=== PATIENT | female | born 1960 | race Caucasian/White ===

== ENCOUNTER 2022-07-11 08:37 | Outpatient (CLI) | payer BC, SELFPAY ==
--- OUTSIDE RECORDS SUMMARY | 2022-07-11 08:44 | XMS_ITS ---
:1960 Author Allergies Code Code System Name Reaction Severity Status Onset NKDA ? Medications Name Status Start Date Stop Date ? ? amoxicillin 500 mg capsule Completed ? 04/13 amoxicillin 875 mg-potassium clavulanate 125 mg tablet Active ? Not available TK 1 T PO Q 12 H WC FOR 10 DAYS azithromycin 250 mg tablet Completed ? 04/13 biotin Active ? Not available Co Q-10 Active ? Not available escitalopram 5 mg tablet Active ? Not reese ilable TK 1 T PO QD fluticasone propionate 50 mcg/actuation nasal spray,suspension A ctive ? Not available SHAKE LQ AND U 1 SPR IEN QD hydrocodone 5 mg-acetaminophen 325 mg tablet Active ? Not available TK 1 T PO QID IF NEEDED FOR PAIN IBU 800 mg tablet Active ? Not available TK 1 T PO Q 6 TO 8 HOURS PRF PAIN Low Dose Aspirin 81 mg tablet,delayed release Active ? Not available Take 1 tablet every day by oral route. pravastatin Active ? Not available prednisone 10 mg tablet Completed ? 06/05/20 18 TK 1 T PO QD FOR 5 DAYS Stool Softener Active ? Not available turmeric Active ? Not available Problems Name Status Onset Date Source ? Cerebrovascular Accident Active 06/05/2018 ? Procedures Date Name Performed by ? ? Hysterectomy Information not avai lable ? Tonsillectomy/Adenoidectomy Information not available Results Lab Results Date Name Specimen Result Interpretation Description Value Range Status Address ? ? Rapid Strep Group a, ? Strep negative ? ? In-House Results: For Throat Internal U se Only, Do Not Delete/rukhsana ge Past Encounters None recorded. Social History Tobacco Smoking Status Never Smoker Vaccine List None recorded. Plan of Care Reminders Provider Appointments None recorded. ? ? Lab None recorded. ? ? Referral None recorded. ? ? Procedures None recorded. ? ? Surgeries None recorded. ? ? Imaging None recorded. ? ? Vitals 04/13/2019 10:45AM URGENT CARE VISIT Height Weight BMI Blood Pressure 161.29 cm 79.11 kg 30.4 kg/m2 138/85 mm[Hg] 01/27/2019 09:15AM URGENT CARE VISIT Height Weight BMI Blood Pressure 161.29 cm 78.24 kg 30.1 kg/m2 129/81 mm[Hg] 06/05/2018 10:15AM URGENT CARE VISIT Weight Blood Pressure 77.11 kg (1) 147/92 mm[Hg] (2) 144/91 mm[Hg]
--- OUTSIDE RECORDS SUMMARY | 2022-07-11 08:45 | XMS_ITS ---
:1960 Author Care Team Providers Name Role Phone Dunia Huntley Primary Care Provider Unavailable Allergies Code Code System Name Reaction Severity Status Onset NKDA ? Medications Name Status Start Date Stop Date ? ? Accu-Chek Fastclix Lancet Drum Active ? N ot available USE TO TEST BLOOD SUGAR ONCE D Accu-Chek Guide Glucose Meter Active ? No t available USE TO TEST BLOOD SUGAR ONCE D Accu-Chek Guide test strips Active ? Not available TEST BLOOD SUGARS ONCE D albuterol sulfate HFA 90 mcg/actuation aerosol inhaler Active ? Not available INHALE 1 TO 2 PUFFS BY MOUTH EVERY 4 TO 6 HOURS NEEDED gabapentin 100 mg capsule Active ? Not av ailable TK 1 C PO QID metformin ER 500 mg tablet,extended release 24 hr Active ? Not available TK 1 T PO QD montelukast Active ? Not available montelukast 10 mg tablet Active ? Not reese ilable TK 1 T PO QD polymyxin B sulfate 10,000 unit-trimethoprim 1 mg/mL eye Active ? Not available drops pravastatin Active ? Not available Problems Name Status Onset Date Source ? Diabetes Mellitus Active 07/14/2020 ? Asthma Active ? ? Procedures None recorded. Results Lab Results Date Name Specimen Result Interpretation Description Value Range Status Address ? 10/16/2021 Sars Antigen NASAL ? Sars negative negative [facility] [place] [facility] Antigen [facility] (Lab): [address], [place] ? ? NASAL ? Lot Number [id number] ? Final [facility] (Lab): [address], [place] ? ? NASAL ? Expiration [id number] ? Final [place] [facility] (Lab): [address], [place] ? ? NASAL ? Intcon valid valid Final [facility] (Lab): [address], [place] ? ? NASAL ? First Covid no ? Final [facility] ([facility]): [address], [place] ? ? NASAL ? Healthcare no ? Final [facility] (Lab): [address], [place] ? ? NASAL ? Cvdsymp no ? Final [facility] (Lab): [address], [place] ? ? NASAL ? Cvdhosp no ? Final [facility] (Lab): [address], [place] ? ? NASAL ? ICU St Time no ? Final [facility] (Lab): [address], [place] ? ? NASAL ? Resident in no ? Final [facility] (Lab): [address], [place] ? ? NASAL ? ? not ? Final [facility] ([facility]): [address] [facility] [place] 10/16/2021 SARS CoV 2 ? No ? ? ? [place] RNA observation Medic al (COVID-19), recorded. 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 No ? ? ? [place] Study observation Medic al recorded. Center (Pathology ): [address] [facility] Past Encounters 10/16/2021 Viral Screening Dunia Huntley [facility]: [address] [place] [address], Ph. [phone] 08/09/2021 Type 2 Diabetes Mellitus without Complic ation Dunia Huntley [facility]: [address] [place] [address], Ph. [phone] Social History Tobacco Smoking Status Never Smoker Vaccine List None recorded. Plan of Care Reminders Provider Appointments None recorded. ? ? Lab None recorded. ? ? Referral None recorded. ? ? Procedures None recorded. ? ? Surgeries None recorded. ? ? Imaging None recorded. ? ? Vitals 10/16/2021 11:52AM WALK-IN Height Weight BMI Blood Pressure 160.02 cm 78.07 kg 30.5 kg/m2 132/83 mm[Hg] 08/09/2021 08:06AM WALK-IN Height Weight BMI Blood Pressure 160.02 cm 77.11 kg 30.1 kg/m2 120/70 mm[Hg] 08/17/2020 03:00PM *Follow-up 15 Height Weight BMI Blood Pressure 160.02 cm 76.2 kg 29.8 kg/m2 113/78 mm[Hg] 08/04/2020 03:00PM Procedure/test in clinic Height Weight BMI Blood Pressure 160.02 cm 77.56 kg 30.3 kg/m2 128/89 mm[Hg] 07/29/2020 03:30PM *New Patient 30 Height Weight BMI Blood Pressure 160.02 cm 77.11 kg 30.1 kg/m2 110/72 mm[Hg] 07/14/2020 10:45AM WALK-IN Height Weight BMI Blood Pressure 160.02 cm 75.75 kg 29.6 kg/m2 135/89 mm[Hg]
--- OUTSIDE RECORDS SUMMARY | 2022-07-11 08:45 | XMS_ITS ---
:1960 Author Care Team Providers Name Role Phone ELIJAH PORTER MANAGER [employer] Primary Care Provider [phone] REBECCA ROLDAN RD CDE Business Process Associate/Slab Installer [phone] Allergies Code Code System Name Reaction Severity Status Onset [id number] RxNorm Mold Other Mild to Moderate Active 06/2016 Medications Name Status Start Date Stop Date ? ? Accu-Chek Guide test strips Active ? Not available TEST BLOOD SUGARS ONCE DAILY albuterol sulfate HFA 90 mcg/actuation aerosol inhaler Active ? Not available Inhale 2 puffs every 4-6 hours by inhalation route as needed. amoxicillin 875 mg-potassium clavulanate 125 mg tablet Completed ? 02/08/2021 TAKE 1 TABLET BY MOUTH TWICE DAILY aspirin 81 mg tablet,delayed release Active 07/27/2016 Not available Take 1 tablet every day by oral route. azithromycin 250 mg tablet Completed ? 01/03 TAKE 2 TABLETS BY MOUTH FOR 1 DAY THEN TAKE 1 TABLET BY MOUTH DAILY FOR 4 DAYS benzonatate 100 mg capsule Completed ? 01/03 TAKE 1 CAPSULE BY MOUTH THREE TIMES DAILY NEEDED biotin Completed ? 01/06/2019 1000 mgonce daily biotin 1 mg tablet Active ? Not available Take 1 tablet every day by oral route. cephalexin 500 mg capsule Completed ? 2020 TAKE 1 CAPSULE BY MOUTH FOUR TIMES DAILY FOR 7 DAYS ciclopirox 8 % topical solution Active ? Not available APPLY TO THE RIGHT SECOND TOENAIL EVERY DAY AT BEDTIME CLEAN NAIL WITH ALCOHOL EVERY 7 DAYS Co Q-10 Completed ? 04/01/2017 CoQ-10 100 mg capsule Active ? Not availa ble Take 1 capsule every day by oral route. Cosamin DS 500 mg-400 mg tablet Completed 09/05/2015 02/17/2017 Take as needed for joint pain Detrol LA 4 mg capsule,extended release Completed 11/23/19 16 12/11/2017 Take 1 capsule every day by oral route. Differin 0.1 % topical cream Active 10/28/2015 Not available Apply to the affected areas once daily at bedtime. docusate sodium 100 mg capsule Active ? N ot available Take 1 capsule every day by oral route. doxycycline monohydrate 100 mg capsule Completed ? 02/08/2021 TK 1 C PO BID FOR 7 DAYS escitalopram 5 mg tablet Active ? Not reese ilable Take 1 tablet every day by oral route. estradiol 0.01% (0.1 mg/gram) vaginal cream Active ? Not available Insert 1 g twice a week by vaginal route. fluticasone propionate 50 mcg/actuation nasal spray,suspension A ctive ? Not available SHAKE LIQUID AND USE 2 SPRAYS IN EACH NOSTRIL EVERY DAY NEED ED gabapentin 100 mg capsule Active ? Not av ailable Take 1 capsule twice a day by oral route as needed. gabapentin 300 mg capsule Completed 10/28/20152016 Take one (1) by mouth at hour of sleep as needed. glucosamine-chondroitin 750 mg-600 mg tablet Completed 02/17/2017 Take one (1) by mouth daily. ID NOW COVID-19 Test Kit Completed ? 022 TEST DIRECTED TODAY ketoconazole 2 % topical cream Completed 10/16/2016 0 12/11/2017 Apply to affected toenails qd. melatonin Completed ? 01/06/2019 5 mg once daily melatonin 5 mg tablet Active ? Not availa ble Take 1 tablet as needed by oral route at bedtime. metformin ER 500 mg tablet,extended release 24 hr Active ? Not available Take 1 tablet every day by oral route. montelukast Completed ? 01/12/2020 10mg once daily montelukast 10 mg tablet Active ? Not reese ilable Take 1 tablet every day by oral route in the evening. Multivitamin 50 Plus Completed ? 12/11/2017 Take 1 tab daily naproxen 500 mg tablet Completed ? 1 TK 1 T PO BID FOR 5 DAYS. TAKE WITH FOOD naratriptan 2.5 mg tablet Active ? Not av ailable Take 1 tablet by mouth at the onset of migraine. May repeat dose in 2 hours if symptoms still present. No more than 2 tablets in 24 hours. nitrofurantoin monohydrate/macrocrystals 100 mg capsule Complete d ? 01/03/2022 TAKE 1 CAPSULE BY MOUTH TWICE DAILY ofloxacin 0.3 % eye drops Active ? Not av ailable polymyxin B sulfate 10,000 unit-trimethoprim 1 mg/mL eye drops C ompleted ? 01/28/2020 INSTILL 1 DROP INTO AFFECTED EYE(S) BY OPHTHALMIC ROUTE EVERY 6 HOURS pravastatin 20 mg tablet Active ? Not reese ilable Take 1 tablet every day by oral route at bedtime. prednisolone acetate 1 % eye drops,suspension Active ? Not available prednisone 10 mg tablet Completed ? 01/07/20 Take 1 tablet every day by oral route for 5 days. Probiotic 3 billion cell capsule Completed 09/07/2014 12/11/2017 Take by oral route. Prolensa 0.07 % eye drops Active ? Not av ailable valacyclovir 1 gram tablet Active ? Not a vailable TAKE 2 TABLETS BY MOUTH EVERY 12 HOURS FOR 1 DAY NEEDED Problems Name Status Onset Date Source ? Hyperlipidemia Active 02/13/2017 ? Gastroesophageal Reflux Disease Active 02/13/2017 ? Osteoarthritis Active 02/13/2017 ? Sleep Disorder Active 02/13/2017 ? Impaired Fasting Glycemia Unknown 02/13/2017 ? Migraine Active 12/11/2017 ? Menopausal Flushing Active 12/11/2017 ? Atrophic Vaginitis Active 12/11/2017 ? Adult Health Examination Unknown 12/11/2017 ? Diabetes Mellitus Active 01/12/2020 ? Allergic Rhinitis Active 01/12/2020 ? Melanocytic Nevus of Trunk Active 05/03/2020 ? Hemangioma of Skin Active 05/03/2020 ? Skin Changes Due to Chronic Exposure to Non-ionizing Active 05/03/2020 ? Radiation Senile Hyperkeratosis Active 05/03/2020 ? Inflamed Seborrheic Keratosis Active 05/03/2020 ? Digital Mucous Cyst of Left Hand Active 05/03/2020 ? Procedures Date Name Performed by ? 01/13/2019 Cologuard Information not avai lable 08/26/1990 Hysterectomy Information not avai lable 06/10/2015 Mammogram, Screening Information not reese ilable 06/25/2014 Mammogram, Screening Information not reese ilable 06/12/2016 Mammogram, Screening Information not reese ilable 02/08/2021 XR, Hip, Unilateral, 2 or 3 View [facility] Radiology Uls Ekg Holter [address] [place] [address] (Work Place) 01/03/2022 CT, Coronary Calcium Score [facility] Diagnostic Cardiology Ekg Holter Stress Ahs [address] [place] [address] (Work Place) 04/02/2022 XR, Lumbar Spine [facility] Radiology Uls Ekg Holter Amg [address] [place], [place] [id number] (Work Place) Notes: Right finger cyst removal, left middle finger cyst removal Left breast biopsy; benign Hysterectomy due to irregular periods an d dysmenorrhea; ovaries remain intact Tonsillectomy EGD on 11/17/2012 Colonoscopy on 01/13/2007 Results Lab Results Date Name Specimen Result Interpretation Description Value Range Status Address ? 12/29/2021 HbA1C High glycohgb-A1C 6.2 % <=5.6 % [facility] (Hemoglobin Hospi magui Lab a1C), Blood Ahs: [address] [facility] ? ? ? [address] ? Final [facility] Lab Ahs: [address] [facility] 12/29/2021 Microalbumin/cr ? microalb-mg/dL < 0.5 ? Final [facility] [place] mg/dL Ho spital Lab Ratio, Urine Ahs: [address] [facility] ? ? ? Microalb/crea not 0-29 [facility] done ug/mg Hospital L ab ug/mg Ahs: [address] [facility] ? ? ? Ur Creat 105 ? Final [facility] Random mg/dL Hospital L ab Ahs: [address] [facility] 12/29/2021 CMP, Serum or Normal Sodium 138 136-145 Allyn l [facility] Plasma mmol/L mmol/L Hospital L ab Ahs: [address] [facility] ? ? Normal Potassium 4.2 3.5-5.[address] [facility] mmol/L mmol/L Hospital L ab Ahs: [address] [facility] ? ? Normal Chloride 104 98-107 [facility] mmol/L mmol/L Hospital L ab Ahs: [address] [facility] ? ? Normal Tco2 26 23-[address] [facility] mmol/L mmol/L Hospital L ab Ahs: [address] [facility] ? ? Normal Anion Gap, 8.4 3-[address] [facility] Calc mmol/L mmol/L Hospital L ab Ahs: [address] [facility] ? ? High Glucose 129 70-99 Final [facility] mg/dL mg/dL Hospital L ab Ahs: [address] [facility] ? ? Normal Urea Nitrogen 16 7-26 Final [facility] mg/dL mg/dL Hospital L ab Ahs: [address] [facility] ? ? Normal Creatinine 1.07 0.57-1.1 Final [facility] mg/dL 1 mg/dL Hospital Lab Ahs: [address] [facility] ? ? Normal Calcium Total 9.5 8.4-10.5 Final [facility] mg/dL mg/dL Hospital L ab Ahs: [address] [facility] ? ? Low GFR Calculated 52 >60 Final [facility] mL/min mL/min Hospital L ab Ahs: [address] [facility] ? ? Normal Bilirubin 0.5 0.2-1.[address] [facility] Total mg/dL mg/dL Hospital L ab Ahs: [address] [facility] ? ? Normal Alkphos 77 U/L 40-150 Final [facility] U/L Hospital L ab Ahs: [address] [facility] ? ? High Got(ast) 36 U/L 5-34 U/L Final [facility] L ab Ahs: [address] [facility] ? ? Normal Gpt(alt) 51 U/L 0-55 U/L Final [facility] L ab Ahs: [address] [facility] ? ? Normal Protein Total 7.5 6.2-8.0 Final [facility] g/dL g/dL Hospital L ab Ahs: [address] [facility] ? ? Normal Albumin 4.2 3.5-5.2 Final [facility] g[facility]dL Hospital L ab Ahs: [address] [facility] 12/29/2021 Lipid Panel, High cholesterol-T 201 < 200 Final [facility] Serum mg/dL mg/dL Hospital L ab Ahs: [address] [facility] ? ? High Triglyceride 203 50-150 Final [facility] mg/dL mg/dL Hospital L ab Ahs: [address] [facility] ? ? ? HDL [address] [facility] Cholesterol mg/dL mg/dL Hospi magui Lab Ahs: [address] [facility] ? ? High Non-hdlc Calc 157 <130 Final [facility] mg/dL mg/dL Hospital L ab Ahs: [address] [facility] ? ? High LDL Chol Calc 116 <100 Final [facility] mg/dL mg/dL Hospital L ab Ahs: [address] [facility] 01/05/2021 HbA1C High glycohgb-A1C 6.1 % <=5.6 % Final [facility] (Hemoglobin Hospi magui Lab a1C), Blood Ahs: [address] [facility] ? ? ? [address] ? Final [facility] Lab Ahs: [address] [facility] 01/05/2021 Microalbumin/cr ? microalb-mg/dL < 0.5 ? Final [facility] [place] mg/dL Ho spital Lab Ratio, Urine Ahs: [address] [facility] ? ? ? Microalb/crea not 0-29 Final [facility] done ug/mg Hospital L ab ug/mg Ahs: [address] [facility] ? ? ? Ur Creat 82 ? Final [facility] Random mg/dL Hospital L ab Ahs: [address] [facility] 01/05/2021 CMP, Serum or Normal Sodium 141 136-145 Allyn l [facility] Plasma mmol/L mmol/L Hospital L ab Ahs: [address] [facility] ? ? Normal Potassium 4.5 3.5-5.[address] [facility] mmol/L mmol/L Hospital L ab Ahs: [address] [facility] ? ? High Chloride 108 98-[address] [facility] mmol/L mmol/L Hospital L ab Ahs: [address] [facility] ? ? Normal Tco2 26 23-[address] [facility] mmol/L mmol/L Hospital L ab Ahs: [address] [facility] ? ? Normal Anion Gap, 7.1 3-[address] [facility] Calc mmol/L mmol/L Hospital L ab Ahs: [address] [facility] ? ? High Glucose 117 70-99 Final [facility] mg/dL mg/dL Hospital L ab Ahs: [address] [facility] ? ? Normal Urea Nitrogen 24 7-26 Final [facility] mg/dL mg/dL Hospital L ab Ahs: [address] [facility] ? ? Normal Creatinine 1.07 0.57-1.1 Final [facility] mg/dL 1 mg/dL Hospital Lab Ahs: [address] [facility] ? ? Normal Calcium Total 9.8 8.4-10.5 Final [facility] mg/dL mg/dL Hospital L ab Ahs: [address] [facility] ? ? Low GFR Calculated 52 >60 Final [facility] mL/min mL/min Hospital L ab Ahs: [address] [facility] ? ? Normal Bilirubin 0.5 0.2-1.[address] [facility] Total mg/dL mg/dL Hospital L ab Ahs: [address] [facility] ? ? Normal Alkphos 76 U/L 40-150 Final [facility] U/L Hospital L ab Ahs: [address] [facility] ? ? Normal Got(ast) 24 U/L 5-34 U/L Final [facility] L ab Ahs: [address] [facility] ? ? Normal Gpt(alt) 28 U/L 0-55 U/L Final [facility] L ab Ahs: [address] [facility] ? ? Normal Protein Total 7.2 6.2-8.0 [facility] ab Ahs: [address] [facility] ? ? Normal Albumin 4.1 3.5-5.[address] [facility] g/dL g/dL Hospital L ab Ahs: [address] [facility] 01/05/2021 Lipid Panel, ? cholesterol-T 180 < 200 Final [facility] Serum mg/dL mg/dL Hospital L ab Ahs: [address] [facility] ? ? High Triglyceride 152 50-150 Final [facility] mg/dL mg/dL Hospital L ab Ahs: [address] [facility] ? ? ? HDL [address] [facility] Cholesterol mg/dL mg/dL Hospi magui Lab Ahs: [address] [facility] ? ? High Non-hdlc Calc 134 <130 Final [facility] mg/dL mg/dL Hospital L ab Ahs: [address] [facility] ? ? High LDL Chol Calc 104 <100 Final [facility] mg/dL mg/dL Hospital L ab Ahs: [address] [facility] 01/05/2021 TSH, Serum or Normal Tsh 2.67 0.34-4.9 [facility] Plasma uIU/mL 4 uIU/mL Hospital Lab Ahs: [address] [facility] 07/14/2020 CMP, Serum or ? No observation ? ? ? [place] Plasma recorded. Medical Center (Medical Records): [address] [facility] 04/15/2020 HbA1C High glycohgb-A1C 6.3 % <=5.6 % Final [facility] (Hemoglobin Hospi magui Lab a1C), Blood Ahs: [address] [facility] ? ? ? [address] ? Final [facility] Glucose Hospital Lab Ahs: [address] [facility] 04/15/2020 Glucose, Serum High Glucose 141 70-99 Fin al [facility] or Plasma mg/dL mg/dL Hospita l Lab Ahs: [address] [facility] 03/14/2020 CBC W/ Auto Normal Wbc 6.7 3.9-11.0 Final [place] Main Diff x1000 x1000 [facility] Lab Am [address] [facility], [place] ? ? Normal Rbc 4.50 3.79-5.2 Final [place] M ain millio 3 Clinic n million Lab Am Main , [place] ? ? Normal Hgb 15.0 11.7-15. Final Félix Conrad ain g/dL 7 g/dL Clinic Lab Am 01 [facility] ? ? Normal Hct 43.9 % 34.9-46. Final Félix Conrad ain 9 % Clinic Lab Am 01 [facility] ? ? Normal Mcv 97.7 80-100 Final Félix Adami n fL fL Clinic Lab Am 01 [facility] ? ? Normal Mch 33.4 26.6-33. Final Félix Conrad ain pg 8 pg Clinic Lab Am 01 [facility] ? ? Normal Mchc 34.1 32-36 Final Félix Nolasco n g/dL g/dL Clinic Lab Am 01 [facility] ? ? Low Rdw 10.9 % 11.5-14. Final Félix Conrad ain 5 % Clinic Lab Am 01 [facility] ? ? Normal Plt 286 160-475 Final Félix Adam in x1000 x1000 Clinic Lab Am 01 [facility] ? ? Low Mpv 6.9 fL 7.4-10.4 Final Félix Conrad ain fL Clinic Lab Am 01 [facility] ? ? Normal % Neutrophil 51.8 % 50.0-80. Final Lisa carter Main 0 % Clinic Lab Am 01 [facility] ? ? Normal % Lymph 33.6 % 25.0-45. Final [place] Main 0 % Clinic Lab Am 01 [facility] ? ? Normal % Trimble 8.5 % 2.0-13.0 Final [place] Main % Clinic Lab Am 01 [facility] ? ? High % Eosin 5.3 % 1.0-5.0 Final [place] Main % Clinic Lab Am 01 [facility] ? ? Normal % Basophil 0.8 % 0-1.0 % Final [facility] Clinic Lab Am 01 [facility] ? ? Normal Abs Neut CT 3.5 1.8-7.7 Final [facility] Main x1000 x1000 Clinic Lab Am 01 [facility] ? ? Normal Abs Lymph CT 2.3 1.0-4.[address] [facility] x1000 x1000 Clinic Lab Am 01 [facility] ? ? Normal Abs Trim[address] CT 0.6 0-0.[address] [facility] x1000 x1000 Clinic Lab Am 01 [facility] ? ? Normal Abs Eosin CT 0.4 0-0.[address] [facility] x1000 x1000 Clinic Lab Am 01 [facility] ? ? Normal Abs Baso CT 0.1 0-0.[address] [facility] x1000 x1000 Clinic Lab Am [facility] ? ? ? Smear Review smear ? Final Kyler perez Main review [facility] ed Lab Am 01 [facility] 03/14/2020 Uric Acid, High Uric Acid 6.2 2.6-6.0 Allyn l [facility] Serum or Plasma mg/dL mg/dL H ospital Lab Ahs: [address] [facility] 03/14/2020 Rheumatoid ? Rheum Fact,qnt < 15 0-29 Final [facility] Factor-qnt IU/mL IU/mL Heal System: [address] [facility] on ? ? ? RA Factor negati negative Final [facility] [address] [facility] on 03/14/2020 DAVID Normal DAVID EIA Scn negati negative Final [facility] (Antinuclear ve Hosp ital Lab Antibodies) Ahs: [address] Screen, Serum One stuart [facility] 01/28/2020 SARS CoV 2 RNA Normal Sars-cov-2 PCR negati neg ative Final [facility] (COVID-19), QL, ve H ealth die assembler-PCR, System: [address] Res[address] S Mad vivek [facility], Appl eton 01/05/2020 CMP, Serum or Normal Sodium 141 136-145 Allyn l [facility] Plasma mmol/L mmol/L [facility] ? ? Normal Potassium 4.5 3.5-5.[address] [facility] mmol/L mmol/L Hospital L ab Ahs: [address] [facility] ? ? Normal Chloride 105 98-107 Final [facility] mmol/L mmol/L Hospital L ab Ahs: [address] [facility] ? ? High Tco2 31 22-[address] [facility] mmol/L mmol/L Hospital L ab Ahs: [address] [facility] ? ? Normal Anion Gap, 4.8 3-[address] [facility] Calc mmol/L mmol/L Hospital L ab Ahs: [address] [facility] ? ? High Glucose 139 70-99 Final [facility] mg/dL mg/dL Hospital L ab Ahs: [address] [facility] ? ? Normal Urea Nitrogen 13 7-26 Final [facility] mg/dL mg/dL Hospital L ab Ahs: [address] [facility] ? ? Normal Creatinine 1.08 0.57-1.1 Final [facility] mg/dL 1 mg/dL Hospital Lab Ahs: [address] [facility] ? ? Normal Calcium Total 10.3 8.4-10.5 Final [facility] mg/dL mg/dL Hospital L ab Ahs: [address] [facility] ? ? Low GFR Calculated 52 >60 Final [facility] mL/min mL/min Hospital L ab Ahs: [address] [facility] ? ? Normal Bilirubin 0.5 0.2-1.[address] [facility] Total mg/dL mg/dL Hospital L ab Ahs: [address] [facility] ? ? Normal Alkphos 74 U/L 40-150 Final [facility] U/L Hospital L ab Ahs: [address] [facility] ? ? High Got(ast) 46 U/L 5-34 U/L Final [facility] L ab Ahs: [address] [facility] ? ? High Gpt(alt) 62 U/L 0-55 U/L Final [facility] L ab Ahs: [address] [facility] ? ? Normal Protein Total 7.2 6.2-8.0 Final [facility] g/dL g/dL Hospital L ab Ahs: [address] [facility] ? ? Normal Albumin 4.3 3.5-5.2 Final [facility] g/dL Hospital L ab Ahs: [address] [facility] 01/05/2020 Lipid Panel, ? cholesterol-T 193 < 200 Final [facility] Serum mg/dL mg/dL Hospital L ab Ahs: [address] [facility] ? ? High Triglyceride 180 50-150 Final [facility] mg/dL mg/dL Hospital L ab Ahs: [address] [facility] ? ? ? HDL [address] [facility] Cholesterol mg/dL mg/dL Hospi magui Lab Ahs: [address] [facility] ? ? High Non-hdlc Calc 148 <130 Final [facility] mg/dL mg/dL Hospital L ab Ahs: [address] [facility] ? ? High LDL Chol Calc 112 <100 Final [facility] mg/dL mg/dL Hospital L ab Ahs: [address] [facility] 01/05/2020 HbA1C High glycohgb-A1C 7.0 % <=5.6 % Final [facility] (Hemoglobin Hospi magui Lab a1C), Blood Ahs: [address] [facility] ? ? ? [address] ? Final [facility] Hospital Lab Ahs: [address] [facility] 01/13/2019 Colon Cancer Stoo ? Cologuard negati not Fin al Exact Screening, l Result ve applicab Scie nces Stool le Laboratori es (Cologuard Orders Only): [address], [place] 01/06/2019 Measles IgG Ab, ABNORMA Rubeola Immune non i mmune Final [facility] Qual, Serum L immune Hospi magui Lab Ahs: [address] [facility] 12/31/2018 CMP, Serum or Normal Sodium 140 136-145 Allyn l [facility] Plasma mmol/L mmol/L Hospital L ab Ahs: [address] [facility] ? ? Normal Potassium 4.4 3.5-5.[address] [facility] mmol/L mmol/L Hospital L ab Ahs: [address] [facility] ? ? Normal Chloride 106 98-107 Final [facility] mmol/L mmol/L Hospital L ab Ahs: [address] [facility] ? ? Normal Tco2 27 22-[address] [facility] mmol/L mmol/L Hospital L ab Ahs: [address] [facility] ? ? Normal Anion Gap, 6.9 3-[address] [facility] Calc mmol/L mmol/L Hospital L ab Ahs: [address] [facility] ? ? High Glucose 112 70-99 Final [facility] mg/dL mg/dL Hospital L ab Ahs: [address] [facility] ? ? Normal Urea Nitrogen 16 7-26 Final [facility] mg/dL mg/dL Hospital L ab Ahs: [address] [facility] ? ? Normal Creatinine 1.10 0.57-1.1 Final [facility] mg/dL 1 mg/dL Hospital Lab Ahs: [address] [facility] ? ? Normal Calcium Total 9.8 8.4-10.5 Final [facility] mg/dL mg/dL Hospital L ab Ahs: [address] [facility] ? ? Low GFR Calculated 51 >60 Final [facility] mL/min mL/min Hospital L ab Ahs: [address] [facility] ? ? Normal Bilirubin 0.9 0.2-1.[address] [facility] Total mg/dL mg/dL Hospital L ab Ahs: [address] [facility] ? ? Normal Alkphos 84 U/L 40-150 Final [facility] U/L Hospital L ab Ahs: [address] [facility] ? ? Normal Got(ast) 30 U/L 5-34 U/L Final [facility] L ab Ahs: [address] [facility] ? ? Normal Gpt(alt) 39 U/L 0-55 U/L Final [facility] L ab Ahs: [address] [facility] ? ? Normal Protein Total 7.4 6.2-8.0 Final [facility] g/dL g/dL Hospital L ab Ahs: [address] [facility] ? ? Normal Albumin 4.3 3.5-5.2 Final [facility] [facility] g/dL g/dL Hospital L ab Ahs: [address] [facility] 12/31/2018 Lipid Panel, ? cholesterol-T 187 < 200 Final [facility] Serum mg/dL mg/dL Hospital L ab Ahs: [address] [facility] ? ? High Triglyceride 180 50-150 Final [facility] mg/dL mg/dL Hospital L ab Ahs: [address] [facility] ? ? Low HDL [address] [facility] Cholesterol mg/dL mg/dL Hospi magui Lab Ahs: [address] [facility] ? ? High Non-hdlc Calc 150 <130 Final [facility] mg/dL mg/dL Hospital L ab Ahs: [address] [facility] ? ? High LDL Chol Calc 114 <100 Final [facility] mg/dL mg/dL Hospital L ab Ahs: [address] [facility] 12/31/2018 HbA1C High glycohgb-A1C 6.3 % <=5.6 % Final [facility] (Hemoglobin Hospi magui Lab a1C), Blood Ahs: [address] [facility] ? ? ? [address] ? Final [facility] Lab Ahs: [address] [facility] 12/31/2018 TSH, Serum or Normal Tsh 1.72 0.34-4.9 Allyn l [facility] Plasma uIU/mL 4 uIU/mL Hospital Lab Ahs: [address] [facility] 12/11/2017 CMP, Serum or Normal Sodium 138 134-143 Allyn l [facility] Plasma mmol/L mmol/L Hospital L ab Ahs: [address] [facility] ? ? Normal Potassium 4.1 3.6-5.[address] [facility] mmol/L mmol/L Hospital L ab Ahs: [address] [facility] ? ? Normal Chloride 103 98-108 Final [facility] mmol/L mmol/L Hospital L ab Ahs: [address] [facility] ? ? Normal Tco2 27 22-[address] [facility] mmol/L mmol/L Hospital L ab Ahs: [address] [facility] ? ? Normal Anion Gap, 8.1 3-[address] [facility] Calc mmol/L mmol/L Hospital L ab Ahs: [address] [facility] ? ? High Glucose 113 60-99 Final [facility] mg/dL mg/dL Hospital L ab Ahs: [address] [facility] ? ? Normal Urea Nitrogen 15 8-26 Final [facility] mg/dL mg/dL Hospital L ab Ahs: [address] [facility] ? ? Normal Creatinine 0.88 0.44-1.0 Final [facility] mg/dL 0 mg/dL Hospital Lab Ahs: [address] [facility] ? ? Normal Calcium Total 9.3 8.5-10.1 Final [facility] mg/dL mg/dL Hospital L ab Ahs: [address] [facility] ? ? Normal GFR Calculated > 60 >60 Final [facility] mL/min mL/min Hospital L ab Ahs: [address] [facility] ? ? Normal Bilirubin 0.6 0.3-1.[address] [facility] Total mg/dL mg/dL Hospital L ab Ahs: [address] [facility] ? ? Normal Alkphos 81 U/L 32-99 Final [facility] U/L Hospital L ab Ahs: [address] [facility] ? ? Normal Got(ast) 34 15-41 Final [facility] IU/L IU/L Hospital L ab Ahs: [address] [facility] ? ? Normal Gpt(alt) 41 14-54 [facility] IU[facility]L Hospital L ab Ahs: [address] [facility] ? ? Normal Protein Total 7.5 6.0-8.0 [facility] Ahs: [address] [facility] ? ? Normal Albumin 4.2 3.5-5.0 Final [facility] g/dL g/dL Hospital L ab Ahs: [address] [facility] 12/11/2017 Lipid Panel, ? cholesterol-T 193 < 200 Final [facility] Serum mg/dL mg/dL Hospital L ab Ahs: [address] [facility] ? ? High Triglyceride 178 50-150 Final [facility] mg/dL mg/dL Hospital L ab Ahs: [address] [facility] ? ? ? HDL [address] [facility] Cholesterol mg/dL mg/dL Hospi magui Lab Ahs: [address] [facility] ? ? High Non-hdlc Calc 151 <130 Final [facility] mg/dL mg/dL Hospital L ab Ahs: [address] [facility] ? ? High LDL Chol Calc 115 <100 Final [facility] mg/dL mg/dL Hospital L ab Ahs: [address] [facility] 12/11/2017 HbA1C High glycohgb-A1C 6.2 % 4.0-6.0 Final [facility] (Hemoglobin % Hospi magui Lab a1C), Blood Ahs: [address] [facility] ? ? ? [address] ? Final [facility] Lab Ahs: [address] [facility] 02/17/2017 Urinalysis, Normal Color orange ? Final [facility] Complete Clinic L ab Am N [facility], [place] ? ? Normal Clarity clear clear Final [facility] Clinic Lab Am N [facility], [place] ? ? Normal Spec [place] see 1.001-1. Final [facility] Lab t Am N [facility], [place] ? ? Normal Ph see 5.0-8.0 Final [facility] Lab t Am N [facility], [place] ? ? Normal Protein see neg-trac Final [facility] e mg/dL Clinic La b t Am N mg/dL [facility], [place] ? ? Normal Glucose see neg Final [facility] mg[facility]dL Clinic Lab t Am N mg/dL [facility], [place] ? ? Normal Ketones see neg Final [facility] mg/dL Clinic Lab t Am N mg/dL [facility], [place] ? ? Normal Ur Bilirubin see neg Final [facility] commen Clinic Lab t Am N [facility], [place] ? ? Normal Blood see neg Final [facility] Lab t Am N [facility], [place] ? ? Normal Urobilinogen see 0.2-1.0 Final [facility] eu/dL Clinic Lab t Am N eu/dL [facility], [place] ? ? Normal Nitrite see neg Final [facility] Lab t Am N [facility], [place] ? ? Normal Leuk Screen see neg [facility], [place] ? ? Normal Urine Casts 0 /lpf 0 /lpf Final [facility] Lab Am N [facility], [place] ? ? ABNORMA Urine WBC 5-10 0 /hpf Final [facility] L /hpf Clinic Lab Am N [facility], [place] ? ? ABNORMA Urine RBC 3-5 0-2 /hpf Final [facility] L /hpf Clinic Lab Am N [facility], [place] ? ? ABNORMA Urine Bacteria 3+ 0 /hpf Final [facility] L /hpf Clinic Lab Am N [facility], [place] ? ? Normal Urine Mucus 0 0 Final [facility] Lab Am N [facility], [place] ? ? Normal Urine Crystals 0 /hpf 0 /hpf Final [facility] Lab Am N [facility], [place] ? ? Normal Amorphous 0 /hpf 0 /hpf Final [facility] Urate Clinic Lab Am N [facility], [place] ? ? Normal Amorphous Phos 0 0 Final [facility] Lab Am N [facility], [place] ? ? Normal Urine Yeast 0 /hpf 0 /hpf Final [facility] Lab Am N [facility], [place] ? ? Normal Squam Epith cL 3-5 ? Final [facility] /hpf Clinic Lab Am N [facility], [place] ? ? Normal Ur Renal Ep 0 /hpf ? Final [facility] Lab Am N [place] ? ? Normal Ur Oval Fat 0 /hpf 0 /hpf Final Alex gamino [facility] Lab Am N [place] ? ? Normal Urine Comment * ? Final Marylin munguia [facility] Lab Am N [place] 12/13/2016 Historical ? Results ? ? Final [facility] Pathology Wi- Lab Report Backfill (32486): [place] 11/20/2016 Lipid Panel ? Cholesterol-to 198 < 200 Final [facility] magui mg/dL mg/dL Wi- Lab Backfill (58689): [place] ? ? ? Triglycerides 141 50-150 Final [facility] mg/dL mg/dL Wi- Lab Backfill (92352): [place] ? ? ? HDL 50 >40 Final [facility] Cholesterol mg/dL mg/dL Wi- L ab Backfill (14000): [place] ? ? ABNORMA non-HDL 148 <130 Final [facility] Cholesterol,nesha mg/dL mg/dL W i- Lab c Backfill (36245): [place] ? ? ABNORMA LDL 120 <100 Final [facility] L Cholesterol, mg/dL mg/dL Wi- Lab Calc Backfill (93300): [place] 11/20/2016 CMP, Serum or ? Sodium 139 134-143 Allyn l [facility] Plasma mmol/L mmol/L Wi- Lab Backfill (79372): [place] ? ? ? Potassium 4.1 3.6-5.1 Final [facility] [place] mmol/L mmol/L Wi- Lab Backfill (96876): [place] ? ? ? Chloride 105 98-108 Final [facility] mmol/L mmol/L Wi- Lab Backfill (46269): [place] ? ? ? CO2 Content 28 22-32 Final Asce nsion mmol/L mmol/L Wi- Lab Backfill (41574): [place] ? ? ABNORMA Glucose 114 60-99 Final [facility] L mg/dL mg/dL Wi- Lab Backfill (69931): [place] ? ? ? Urea 13 8-26 Final [facility] Nitrogen/blood mg/dL mg/dL Wi - Lab Backfill (27142): [place] ? ? ? Creatinine / 0.96 0.44-1.0 Final [facility] Use Cre mg/dL 0 mg/dL Wi- La b Instead Backfill (46367): [place] ? ? ? Calcium Total 9.6 8.5-10.1 Final [facility] mg/dL mg/dL Wi- Lab Backfill (85241): [place] ? ? ? GFR Calculated 60 > 60 Final [facility] sc[facility] mL/min mL/min Wi- Lab Backfill (90761): [place] ? ? ? Bilirubin 0.3 0.3-1.4 Final [facility] [place] Total mg/dL mg/dL Wi- Lab Backfill (56134): [place] ? ? ? Alkaline 70 U/L 32-99 Final [facility] Phosphatase U/L Wi- L ab Backfill (83060): [place] ? ? ? Got(ast) 28 15-41 Final [facility] IU/L IU/L Wi- Lab Backfill (25013): [place] ? ? ? Gpt(alt) 38 14-54 Final [facility] IU/L IU/L Wi- Lab Backfill (77436): [place] ? ? ? Protein Total 7.3 6.0-8.0 Final A [facility]ension g/dL g/dL Wi- Lab Backfill (06059): [place] ? ? ? Albumin 4.2 3.5-5.0 Final [facility] g/dL g/dL Wi- Lab Backfill (27177): [place] 09/05/2016 Vitd Tot(25 ABNORMA Vitamin D Mass 18.0 30-96 Final [facility] Hydroxy) # L Conc NG/mL NG/mL NG/mL Wi - Lab Backfill (66332): [place] 07/31/2016 Urinalysis ? Urine Color orange ? Fin al [facility] Wi- Lab Backfill (19042): [place] ? ? ? Urine Clarity slight clear Final As cension ly Wi- Lab cloudy Backfill (79072): [place] ? ? ? Urine Casts 0 /lpf 0 /lpf Final Asce nsion Wi- Lab Backfill (02685): [place] ? ? ABNORMA Urine WBC 20-30 0 /hpf Final [facility] [place] L /hpf Wi- Lab Backfill (49949): [place] ? ? ABNORMA Urine RBC 5-10 0-2 /hpf Final Asc ens[facility] L /hpf Wi- Lab Backfill (59430): [place] ? ? ABNORMA Urine Bacteria few 0 /hpf Final [facility] L /hpf Wi- Lab Backfill (46709): [place] ? ? ? Urine Mucus 0 0 Final Asce nsion Wi- Lab Backfill (46921): [place] ? ? ? Urine Crystals 0 /hpf 0 /hpf Final A scension Wi- Lab Backfill (99288): [place] ? ? ? Urine 0 /hpf 0 /hpf Final [facility] Amorphous Wi- Lab Urates Backfill (23258): [place] ? ? ? Urine 0 0 Final [facility] Amorphous Wi- Lab Phosphate Backfil l (57085): [place] ? ? ? Urine Yeast 0 /hpf 0 /hpf Final Asce nsion Wi- Lab Backfill (86570): [place] ? ? ? Urine Squamous 1-3 ? Final A scension Epith Cell /hpf Wi- La b Backfill (78536): [place] ? ? ? Urine Renal 0 /hpf ? Final Asce nsion Epith Cell Wi- La b Backfill (59745): [place] ? ? ? Urine Oval Fat 0 /hpf 0 /hpf Final A scension Bodies Wi- Lab Backfill (99683): [place] ? ? ? Urine Comment * ? Final As cension Wi- Lab Backfill (98274): [place] 07/26/2016 Glucose-whole ABNORMA Glucose-whole 111 60-9 9 Final [facility] Blood Meter L Blood mg/dL mg/dL Wi- L ab Backfill (10178): [place] 07/26/2016 Basic Metabolic ? Sodium 139 134-143 Fi nal [facility] Panel mmol/L mmol/L Wi- Lab Backfill (06571): [place] ? ? Delta Potassium 4.4 3.6-5.1 Final [facility] [place] mmol/L mmol/L Wi- Lab Backfill (43383): [place] ? ? ? Chloride 105 98-108 Final [facility] mmol/L mmol/L Wi- Lab Backfill (24698): [place] ? ? ? CO2 Content 26 22-32 Final Asce nsion mmol/L mmol/L Wi- Lab Backfill (82110): [place] ? ? ABNORMA Glucose 140 60-99 Final [facility] L mg/dL mg/dL Wi- Lab Backfill (78815): [place] ? ? ? Urea 16 8-26 Final [facility] Nitrogen/blood mg/dL mg/dL Wi - Lab Backfill (15223): [place] ? ? ABNORMA Creatinine / 1.02 0.44-1.0 Final [facility] L Use Cre mg/dL 0 mg/dL Wi- La b Instead Backfill (13213): [place] ? ? ? Calcium Total 9.8 8.5-10.1 Final [facility] mg/dL mg/dL Wi- Lab Backfill (43255): [place] ? ? ABNORMA GFR Calculated 56 > 60 Final [facility] L mL/min mL/min Wi- Lab Backfill (70157): [place] 07/26/2016 Hemogram (CBC ? White Blood 6.3 3.9-11. 0 Final [facility] without Diff) Count x1000 x1000 Wi- Lab Backfill (86346): [place] ? ? ? Red Blood 4.54 3.79-5.2 Final Asce nsion Cells millio 3 Wi- Lab n million Backfill (93294): [place] ? ? ? Hemoglobin 15.0 11.7-15. Final Asc ension g/dL 7 g/dL Wi- Lab Backfill (96674): [place] ? ? ? Hematocrit 43.8 % 34.9-46. Final Asc ension 9 % Wi- Lab Backfill (32976): [place] ? ? Delta Mean 96.4 80-100 Final [facility] Corpuscular fL fL Wi- L ab Volume Backfill (85626): [place] ? ? ? Mean 33.1 26.6-33. Final [facility] Corpuscular HGB pg 8 pg W i- Lab Backfill (23688): [place] ? ? ? Mean Reymundo HGB 34.3 32-36 Final [facility] c[facility] Conc g/dL g/dL Wi- Lab Backfill (39468): [place] ? ? ? Red Cell 13.3 % 11.5-14. Final [facility] [place] Distrib Width 5 % Wi- Lab Backfill (62588): [place] ? ? ? Platelet Count 341 160-475 Final [facility] x1000 x1000 Wi- Lab Backfill (36840): [place] ? ? ABNORMA Mean Platelet 6.9 fL 7.4-10.4 Final [facility] L Volume fL Wi- Lab Backfill (77247): [place] 07/26/2016 Lipid Panel ABNORMA Cholesterol-to 220 < 200 Final [facility] L magui mg/dL mg/dL Wi- Lab Backfill (85569): [place] ? ? ? Triglycerides 146 50-150 Final As cension mg/dL mg/dL Wi- Lab Backfill (46426): [place] ? ? ? HDL 48 >40 Final [facility] Cholesterol mg/dL mg/dL Wi- L ab Backfill (21609): [place] ? ? ABNORMA non-HDL 172 <130 Final [facility] Cholesterol,nesha mg/dL mg/dL W i- Lab c Backfill (14318): [place] ? ? ABNORMA LDL 143 <100 Final [facility] L Cholesterol, mg/dL mg/dL Wi- Lab Calc Backfill (41871): [place] 07/25/2016 Glucose-whole ABNORMA Glucose-whole 125 60-9 9 Final [facility] Blood Meter L Blood mg/dL mg/dL Wi- L ab Backfill (40843): [place] 07/25/2016 Glucose-whole ABNORMA Glucose-whole 120 60-9 9 Final [facility] Blood Meter L Blood mg/dL mg/dL Wi- L ab Backfill (43584): [place] 07/25/2016 Glucose-whole ? Glucose-whole 87 60-99 Final [facility] Blood Meter Blood mg/dL mg/dL Wi- L ab Backfill (37484): [place] 07/25/2016 C-reactive ? C-reactive < 0.5 < 1.0 Allyn l [facility] Protein Protein mg/dL mg/dL Wi- Lab Backfill (61147): [place] 07/25/2016 Antinuclear ? DAVID Titer <1:40 <1:40 Allyn l [facility] antibody(DAVID)ti W i- Lab ter Backfill (88425): [place] ? ? ? DAVID Pattern . ? Final Asce nsion Wi- Lab Backfill (08093): [place] 07/25/2016 DAVID EIA Screen ABNORMA DAVID EIA Screen positi ne gative Final [facility] L ve Wi- Lab Backfill (92471): [place] 07/25/2016 Jo1 Antibodies ? Jo1 <20 0-19 Final [facility] Autoantibodies eu/mL eu/mL Wi - Lab EIA Backfill (09634): [place] ? ? ? Jo1 negati negative Final [facility] Autoantibodies ve Wi - Lab EIA Interp Backfi ll (89001): [place] 07/25/2016 Sjogren's ? Sjogren's Ab, <20 0-19 Fi nal [facility] Antibody Anti-ssa (RO) units units Wi- Lab Backfill (50609): [place] ? ? ? Sjogren's Ab, negati negative Final [facility] Anti-ssa Interp ve W i- Lab Backfill (47607): [place] ? ? ? Sjogren's Ab, <20 0-19 Final As cension Anti-ssb (La) units units Wi- Lab Backfill (61738): [place] ? ? ? Sjogren's Ab, negati negative Final [facility] Anti-ssb Interp ve W i- Lab Backfill (33602): [place] 07/25/2016 Scleroderma ? Scleroderma <20 0-19 Fi nal [facility] Antibody Antibody units units Wi- Lab Backfill (05204): [place] ? ? ? Scleroderma negati negative Final As cension Ab. ve Wi- Lab Interpretation Ba ckfill (99034): [place] 07/25/2016 Chromatin ? Chromatin <1.0 <1.0 Final [facility] Antibodies Antibodies neg ai negative Wi- Lab ai Backfill (33595): [place] 07/25/2016 Centromere B ? Centromere B <1.0 <1.0 Final [facility] Antibodies Antibodies neg ai negative Wi- Lab ai Backfill (04103): [place] 07/25/2016 Rueda ? Waqm-ndzy-oe <20 0-19 Final [facility] Antibodies units units Wi- Lab Backfill (12522): [place] ? ? ? Dbqh-riks-gz negati negative Final A scension Interpretation ve Wi - Lab Backfill (32255): [place] 07/25/2016 Meeting Manager ? Qmpi-clyg-ibd <20 0-19 Final [facility] Antibodies units units Wi- Lab Backfill (61973): [place] ? ? ? Ztqi-phdq-srs negati negative Final [facility] Interpretation ve Wi - Lab Backfill (91825): [place] 07/25/2016 Ribonucleoprote ? Ribonucleoprot tnp:qn () Final [facility] in P Antibody ein P Antibody s Wi- Lab Backfill (79263): [place] 07/25/2016 anti-DNA Ab ? anti-DNA Ab 44 0-300 Fi nal [facility] (Double (Double Strand) IU/mL IU/mL Wi- Lab Strand) Backfil l (58611): [place] 07/25/2016 Vitamin B12 ? Vitamin B12 244 180-914 F inal [facility] pg/mL pg/mL Wi- Lab Backfill (80347): [place] 07/25/2016 Prothrombin ? Inr 0.98 0.87-1.1 Final [facility] Time 3 Wi- Lab Backfill (99703): [place] 07/25/2016 Act Part ? Act Part 26 22-32 Final A scension Thromboplastin Thromboplastin Wi- Lab Time Time Backfill (38520): [place] 07/25/2016 Eryth. ? Eryth. 3 mm 0-30 mm Final Asce nsion Sedimentation Sedimentation Wi- Lab Rate Rate Backfill (25001): [place] 07/25/2016 CBC W/ Auto ? White Blood 6.9 3.9-11.0 Final [facility] Diff Count x1000 x1000 Wi- Lab Backfill (73576): [place] ? ? ? Red Blood 4.91 3.79-5.2 Final Asce nsion Cells millio 3 Wi- Lab n million Backfill (): [place] ? ? ? Hemoglobin 15.5 11.7-15. Final Asc ension g/dL 7 g/dL Wi- Lab Backfill (): [place] ? ? ? Hematocrit 45.8 % 34.9-46. Final Asc ension 9 % Wi- Lab Backfill (): [place] ? ? ? Mean 93.3 80-100 Final [facility] Corpuscular fL fL Wi- L ab Volume Backfill (): [place] ? ? ? Mean 31.6 26.6-33. Final [facility] Corpuscular HGB pg 8 pg W i- Lab Backfill (): [place] ? ? ? Mean Reymundo HGB 33.9 32-36 Final As cension Conc g/dL g/dL Wi- Lab Backfill (): [place] ? ? ? Red Cell 13.2 % 11.5-14. Final [facility] [place] Distrib Width 5 % Wi- Lab Backfill (): [place] ? ? ? Platelet Count 355 160-475 Final [facility] x1000 x1000 Wi- Lab Backfill (): [place] ? ? ABNORMA Mean Platelet 6.8 fL 7.4-10.4 Final [facility] L Volume fL Wi- Lab Backfill (): [place] ? ? ? % Neutrophils, 54.8 % 50.0-80. Final [facility] Automated 0 % Wi- Lab Backfill (): [place] ? ? ? % Lymphocytes 35.7 % 25.0-45. Final [facility] (Auto) 0 % Wi- Lab Backfill (): [place] ? ? ? % Monocyte 6.1 % 2.0-13.0 Final Asc ens[facility] (Auto) % Wi- Lab Backfill (): [place] ? ? ? % Eosinophil 2.3 % 1.0-5.0 Final As cension (Auto) % Wi- Lab Backfill (): [place] ? ? ABNORMA % Basophil 1.1 % 0-1.0 % Final Asc ension L (Auto) Wi- Lab Backfill (19065): [place] ? ? ? Absolute 3.8 1.8-7.7 Final [facility] Neutrophil x1000 x1000 Wi- La b Count Backfill (45143): [place] ? ? ? Absolute 2.5 1.0-4.8 Final [facility] Lymphocyte x1000 x1000 Wi- La b Count Backfill (10004): [place] ? ? ? Absolute 0.4 0-0.8 Final [facility] Monocytes Count x1000 x1000 W i- Lab Backfill (15043): [place] ? ? ? Absolute 0.2 0-0.45 Final [facility] Eosinophil x1000 x1000 Wi- La b Count Backfill (72559): [place] ? ? ? Absolute 0.1 0-0.2 Final [facility] Basophil Count x1000 x1000 Wi - Lab Backfill (32259): [place] 07/25/2016 CKMB/CK ? CK Total 163 38-234 Final As cension IU/L IU/L Wi- Lab Backfill (86586): [place] ? ? ? Ckmb 2.4 0.6-6.3 Final [facility] NG/mL NG/mL Wi- Lab Backfill (64520): [place] 07/25/2016 Myoglobin, ? Myoglobin 40.0 14.3-65. Fin al [facility] Serum or Plasma Quantitative NG/mL 8 NG/mL Wi- Lab Backfill (39440): [place] 07/25/2016 Troponin I, ? Cardiac < <0.040 Final [facility] Serum or Plasma Troponin I 0.010 NG/mL Wi- Lab NG/mL Backfill (40831): [place] 07/25/2016 CMP, Serum or ? Sodium 140 134-143 Allyn l [facility] Plasma mmol/L mmol/L Wi- Lab Backfill (99332): [place] ? ? ? Potassium 3.8 3.6-5.1 Final [facility] [place] mmol/L mmol/L Wi- Lab Backfill (42839): [place] ? ? ? Chloride 104 98-108 Final [facility] mmol/L mmol/L Wi- Lab Backfill (38794): [place] ? ? ? CO2 Content 29 22-32 Final Asce nsion mmol/L mmol/L Wi- Lab Backfill (77079): [place] ? ? ABNORMA Glucose 111 60-99 Final [facility] L mg/dL mg/dL Wi- Lab Backfill (09940): [place] ? ? ? Urea 13 8-26 Final [facility] Nitrogen/blood mg/dL mg/dL Wi - Lab Backfill (51372): [place] ? ? ? Creatinine / 0.98 0.44-1.0 Final A scension Use Cre mg/dL 0 mg/dL Wi- La b Instead Backfill (06369): [place] ? ? ? Calcium Total 10.0 8.5-10.1 Final [facility] mg/dL mg/dL Wi- Lab Backfill (38951): [place] ? ? ABNORMA GFR Calculated 59 > 60 Final [facility] L mL/min mL/min Wi- Lab Backfill (09213): [place] ? ? ? Bilirubin 1.0 0.3-1.4 Final [facility] [place] Total mg/dL mg/dL Wi- Lab Backfill (89525): [place] ? ? ? Alkaline 87 U/L 32-99 Final [facility] Phosphatase U/L Wi- L ab Backfill (45651): [place] ? ? ? Got(ast) 28 15-41 Final [facility] IU/L IU/L Wi- Lab Backfill (09353): [place] ? ? ? Gpt(alt) 30 14-54 Final [facility] IU/L IU/L Wi- Lab Backfill (04045): [place] ? ? ABNORMA Protein Total 8.3 6.0-8.0 Final [facility] L g/dL g/dL Wi- Lab Backfill (94554): [place] ? ? ABNORMA Albumin 5.1 3.5-5.0 Final [facility] L g/dL g/dL Wi- Lab Backfill (63390): [place] 05/17/2016 Lipid Profile ABNORMA Cholesterol-to 245 < 2 00 Final [facility] L magui mg/dL mg/dL Wi- Lab Backfill (42678): [place] ? ? ABNORMA Triglycerides 174 50-150 Final A scension L mg/dL mg/dL Wi- Lab Backfill (97722): [place] ? ? ? HDL 47 >40 Final [facility] Cholesterol mg/dL mg/dL Wi- L ab Backfill (77402): [place] ? ? ABNORMA non-HDL 198 <130 Final [facility] L Cholesterol,nesha mg/dL mg/dL W i- Lab c Backfill (48999): [place] ? ? ABNORMA LDL 163 <100 Final [facility] L Cholesterol, mg/dL mg/dL Wi- Lab Calc Backfill (16524): [place] 05/17/2016 Glucose ABNORMA Glucose 107 60-99 Final As cension L mg/dL mg/dL Wi- Lab Backfill (90605): [place] 05/17/2016 Glycosylated ABNORMA Glycosylated 6.2 % 4.0-6. 0 Final [facility] hemoglobin-A1C L HGB-A1C % % Wi- Lab Backfill (48172): [place] ? ? ? Estimated 131 ? Final [facility] Average Glucose W i- Lab Backfill (52110): [place] 11/14/2015 Urinalysis ? Urine Color yellow ? Fin al [facility] Routine Wi- Lab Backfill (35669): [place] ? ? ? Urine Clarity clear clear Final As cension Wi- Lab Backfill (08009): [place] ? ? ? Urine Specific 1.015 1.001-1. Final [facility] [place] 035 Wi- Lab Backfill (24089): [place] ? ? ? Urine pH 6.5 5.0-8.0 Final [facility] Wi- Lab Backfill (74654): [place] ? ? ? Urine Protein neg neg-trac Final [facility] Screen mg/dL e mg/dL Wi- Lab Backfill (48978): [place] ? ? ? Urine Glucose neg neg Final As cension Screen mg/dL mg/dL Wi- Lab Backfill (05396): [place] ? ? ? Urine Ketone neg neg Final Asc ension Screen mg/dL mg/dL Wi- Lab Backfill (49977): [place] ? ? ? Urine neg neg Final [facility] Bilirubin Wi- Lab Screen Backfill (09090): [place] ? ? ? Urine Blood neg neg Final Asce nsion Screen Wi- Lab Backfill (65038): [place] ? ? ? Urine 0.2 0.2-1.0 Final [facility] Urobilinogen eu/dL eu/dL Wi- Lab Screen Backfill (82539): [place] ? ? ? Urine Nitrite neg neg Final As cension Screen Wi- Lab Backfill (66051): [place] ? ? ? Urine neg neg Final [facility] Leukocyte Wi- Lab Screen Backfill (73571): [place] ? ? ? Urine Casts 0 /lpf 0 /lpf Final Asce nsion Wi- Lab Backfill (37058): [place] ? ? ? Urine WBC 0 /hpf 0 /hpf Final [facility] Wi- Lab Backfill (44655): [place] ? ? ? Urine RBC 0 /hpf 0-2 /hpf Final Asce nsion Wi- Lab Backfill (92588): [place] ? ? ? Urine Bacteria 0 0 Final A scension Wi- Lab Backfill (02981): [place] ? ? ? Urine Mucus 0 0 Final Asce nsion Wi- Lab Backfill (84792): [place] ? ? ? Urine Crystals 0 /hpf 0 /hpf Final A scension Wi- Lab Backfill (06395): [place] ? ? ? Urine 0 0 Final [facility] Amorphous [facility] Urates Backfill (42076): [place] ? ? ? Urine 0 0 Final [facility]- [facility] Phosphate Backfil l (10306): [place] ? ? ? Urine Yeast 0 0 Final Asce nsion Wi- Lab Backfill (19802): [place] ? ? ? Urine Squamous 1-4 ? Final A scension Epith Cell /hpf Wi- La b Backfill (63954): [place] 09/16/2015 Lipid Panel ABNORMA Cholesterol-to 219 < 200 Final [facility] L magui mg/dL mg/dL Wi- [facility] Backfill (87574): [place] ? ? ABNORMA Triglycerides 165 50-150 Final A scension L mg/dL mg/dL [facility]- [facility] Backfill (11303): [place] ? ? ? HDL 52 >40 Final [facility] Cholesterol mg/dL mg/dL Wi- L ab Backfill (79128): [place] ? ? ABNORMA non-HDL 167 <130 Final [facility] Cholesterol,[place]ha mg/dL mg/dL W i- Lab c Backfill (69958): [place] ? ? ABNORMA LDL 134 <100 Final [facility] L Cholesterol, mg/dL mg/dL Wi- [facility] Calc Backfill (52270): [place] 09/16/2015 Glycosylated ? Glycosylated 5.9 % 4.0-6.0 Final [facility] hemoglobin-A1C HGB-A1C % % [facility]- [facility] Backfill (64780): [place] ? ? ABNORMA Estimated 123 60-99 Final [facility] [place] L Average Glucose W i- Lab Backfill (66023): [place] 09/05/2015 Influenza A&B ? Influenza a negati negativ e Final [facility] PCR PCR ve [facility]- [facility] Backfill (28607): [place] ? ? ? 2009 H1N1 Pcr not negative Final [facility] detect [facility] ed Backfill (86264): [place] ? ? ? Influenza B negati negative Final As cension PCR ve [facility]- [facility] Backfill (58807): [place] 01/01/2015 Glucose-whole ABNORMA Glucose-whole 107 60-9 9 Final [facility] Blood L Blood mg/dL mg/dL [facility]- Lab Backfill (91003): [place] 01/01/2015 Urinalysis ? Urine Color yellow ? Fin al [facility] Backfill (22377): [place] ? ? ? Urine Clarity clear clear Final As cension [facility]- Lab Backfill (94195): [place] ? ? ? Urine Specific 1.007 1.001-1. Final [facility] [place] 035 [facility]- Lab Backfill (52610): [place] ? ? ? Urine pH 5.0 5.0-8.0 Final [facility] Backfill (80071): [place] ? ? ? Urine Protein neg neg-trac Final [facility] Screen mg/dL e mg/dL [facility]- [facility] Backfill (29195): [place] ? ? ABNORMA Urine Glucose 100 neg Final A scension L Screen mg/dL mg/dL [facility]- [facility] Backfill (33604): [place] ? ? ? Urine Ketone neg neg Final Asc [facility] Screen mg/dL mg/dL [facility]- [facility] Backfill (72690): [place] ? ? ? Urine neg neg Final [facility] Bilirubin [facility]- [facility] Screen Backfill (45344): [place] ? ? ? Urine Blood neg neg Final Asce nsion Screen [facility]- [facility] Backfill (27254): [place] ? ? ? Urine 1.0 0.2-1.0 Final [facility] Urobilinogen eu/dL eu/dL [facility]- [facility] Screen Backfill (81649): [place] ? ? ABNORMA Urine Nitrite pos neg Final A scension L Screen Wi- [facility] Backfill (80329): [place] ? ? ? Urine neg neg Final [facility] Leukocyte [facility]- [facility] Screen Backfill (02223): [place] ? ? ? Urine Casts 0 /lpf 0 /lpf Final Asce nsion Wi- Lab Backfill (42587): [place] ? ? ABNORMA Urine WBC 3-5 0 /hpf Final [facility] [place] L /hpf [facility]- [facility] Backfill (25479): [place] ? ? ? Urine RBC 0-2 0-2 /hpf Final Asce nsion /hpf Wi- Lab Backfill (90936): [place] ? ? ABNORMA Urine Bacteria few 0 /hpf Final [facility] L /hpf [facility]- [facility] Backfill (49889): [place] ? ? ? Urine Mucus 0 0 Final Asce nsion Wi- Lab Backfill (63201): [place] ? ? ? Urine Crystals 0 /hpf 0 /hpf Final A scension [facility]- Lab Backfill (65029): [place] ? ? ? Urine 0 /hpf 0 /hpf Final [facility] Amorphous [facility]- [facility] Urates Backfill (18643): [place] ? ? ? Urine 0 0 Final [facility]- [facility] Phosphate Backfil l (88515): [place] ? ? ? Urine Yeast 0 /hpf 0 /hpf Final Asce nsion [facility]- Lab Backfill (24590): [place] ? ? ? Urine Squamous 3-5 ? Final A scension Epith Cell /hpf Wi- La b Backfill (04474): [place] 01/01/2015 Urinalysis ? Urine Color yellow ? Fin al [facility]- [facility] Backfill (92609): [place] ? ? ? Urine Clarity cloudy clear Final As cension Wi- Lab Backfill (55141): [place] ? ? ? Urine Specific 1.010 1.001-1. Final [facility] [place] 035 Wi- Lab Backfill (04182): [place] ? ? ? Urine pH 5.5 5.0-8.0 Final [facility] Backfill (77251): [place] ? ? ? Urine Protein neg neg-trac Final [facility] Screen mg/dL e mg/dL [facility]- [facility] Backfill (87272): [place] ? ? ? Urine Glucose neg neg Final As cension Screen mg/dL mg/dL [facility]- [facility] Backfill (32140): [place] ? ? ? Urine Ketone neg neg Final [facility] Screen mg/dL mg/dL [facility]- [facility] Backfill (75851): [place] ? ? ? Urine neg neg Final [facility] Bilirubin [facility]- [facility] Screen Backfill (77591): [place] ? ? ? Urine Blood neg neg Final Asce nsion Screen Wi- Lab Backfill (23740): [place] ? ? ? Urine 0.2 0.2-1.0 Final [facility] Urobilinogen eu/dL eu/dL [facility]- [facility] Screen Backfill (48846): [place] ? ? ABNORMA Urine Nitrite pos neg Final A scension L Screen Wi- Lab Backfill (84125): [place] ? ? ABNORMA Urine small neg Final [facility] L Leukocyte Wi- [facility] Screen Backfill (47023): [place] ? ? ? Urine Casts 0 /lpf 0 /lpf Final Asce nsion Wi- Lab Backfill (88481): [place] ? ? ABNORMA Urine WBC 3-5 0 /hpf Final [facility] [place] L /hpf [facility]- [facility] Backfill (02328): [place] ? ? ? Urine RBC 0-2 0-2 /hpf Final Asce nsion /hpf Wi- Lab Backfill (43023): [place] ? ? ABNORMA Urine Bacteria 1+ 0 /hpf Final [facility] L /hpf [facility]- [facility] Backfill (44561): [place] ? ? ? Urine Mucus 0 0 Final Asce nsion Wi- Lab Backfill (38059): [place] ? ? ? Urine Crystals 0 /hpf 0 /hpf Final A scension [facility]- Lab Backfill (46868): [place] ? ? ? Urine 0 /hpf 0 /hpf Final [facility] Urates Backfill (05828): [place] ? ? ? Urine 0 0 Final [facility]orphous [facility]- [facility] Phosphate Backfil l (44341): [place] ? ? ? Urine Yeast 0 /hpf 0 /hpf Final Asce nsion Wi- Lab Backfill (42823): [place] ? ? ? Urine Squamous 20-30 ? Final A scension Epith Cell /hpf Wi- La b Backfill (39876): [place] 2014 Eryth. ? Eryth. 18 mm 0-30 mm Final Asce nsion Sedimentation Sedimentation Wi- Lab Rate Rate Backfill (74222): [place] 2014 hla-[id number] ? hla-B27 negati () Final A scension ve Wi- Lab Backfill (09042): [place] 2014 Cyclic ? Cyclic < 0.5 0.0-4.9 Final Asce nsion Citrullinatd Citrullinatd U/mL U/mL Wi- Lab Pptde Ab Peptide Ab Back fill (22876): [place] ? ? ? Ccp negati negative Final [facility] Interpretation ve [facility] - Lab Backfill (11300): [place] 2014 C-reactive ? C-reactive < 0.5 < 1.0 Allyn l [facility] Protein Protein mg/dL mg/dL [facility]- [facility] Backfill (46383): [place] 2014 Antinuclear ? DAVID EIA Screen negati negati ve Final [facility] Antibody ve Wi- Lab (DAVID-EIA) Backfil l (33719): [place] 09/07/2014 Rheumatoid ? Rheumatoid < 11 0-12 Allyn l [facility] Factor-qnt Factor-qnt IU/mL IU/mL Wi- Lab Backfill (60529): [place] ? ? ? Rheumatoid <=1:40 () titer Final [facility] Factor by Latex titer W i- Lab Backfill (41031): [place] Past Encounters 01/03/2022 Adult Health Examination; Diabetes Melli tus; Anxiety; Atrophic Vaginitis; Migraine; Hyperlipidemia; Allergic Rhinitis; Herpes Labialis; Sciatica; Onychomycosis of Toenails SUMAN Belle: [address] [place] [address], Ph. 02/08/2021 Adult Health Examination; Diabetes Melli tus; Anxiety; Atrophic Vaginitis; Migraine; Hyperlipidemia; Allergic Rhinitis; Herpes Labialis; Pain in Lower Limb; Chronic Back Pain RAMIRO BelleNP: [address] [place] [address], Ph. Social History Tobacco Smoking Status Never Smoker Notes: 01/03/22 [facility] Vaccine List Vaccine Type COVID-19 vaccine, vector-nr, [id number], PF , 0.5 mL ([employer] CBOT) 12/29/2020 influenza, seasonal, intradermal, preser vative free 06/04/2013 MMR 01/13/2019 Td (adult), adsorbed 08/15/2000 Tdap 01/06/2019?0.5 mL zoster live 09/30/2014 zoster recombinant 01/12/2020 Plan of Care Patient Instructions If you are having Pre-clinic labs drawn the week or two before your next appointment, your clinician will review the results with you at that appointment. Reminders Provider Appointments None recorded. ? ? Lab None recorded. ? ? Referral None recorded. ? ? Procedures None recorded. ? ? Surgeries None recorded. ? ? Imaging None recorded. ? ? Vitals 01/03/2022 01:00PM Annual Visit 40 Height Weight BMI Blood Pressure 63.5 in 172 lbs 16 oz 30.2 kg/m2 118/66 mm[Hg] 02/08/2021 01:40PM Annual Visit 40 Height Weight BMI Blood Pressure 63.5 in 171 lbs 29.8 kg/m2 108/64 mm[Hg] 01/04/2021 09:20AM Walk In 5 Height Weight BMI Blood Pressure 63.5 in 171 lbs 29.8 kg/m2 110/64 mm[Hg] 01/02/2021 07:35AM Walk In 5 Height Weight BMI Blood Pressure 63.5 in 172 lbs 16 oz 30.2 kg/m2 110/72 mm[Hg] 03/14/2020 08:20AM Established Patient 20 Height Weight BMI Blood Pressure 63.5 in 173 lbs 9.6 oz 30.3 kg/m2 125/78 mm[Hg] 02/11/2020 07:15AM New Patient 75 Height Weight BMI 63.5 in 172 lbs 16 oz 30.2 kg/m2 01/28/2020 01:55PM Walk In 5 Height Weight BMI Blood Pressure 63.5 in 176 lbs 30.7 kg/m2 102/60 mm[Hg] 01/12/2020 08:00AM Annual Visit 40 Height Weight BMI Blood Pressure 63.5 in 180 lbs 4 oz 31.4 kg/m2 135/80 mm[Hg] 01/10/2020 11:05AM Walk In 5 Height Weight BMI Blood Pressure 63.5 in 177 lbs 16 oz 31 kg/m2 122/78 mm[Hg] 01/06/2019 08:20AM Annual Visit 40 Height Weight BMI Blood Pressure 63.5 in 174 lbs 2 oz 30.4 kg/m2 129/88 mm[Hg] 01/16/2018 03:00PM Walk In 5 Height Weight BMI Blood Pressure 63.5 in 171 lbs 29.8 kg/m2 122/72 mm[Hg] 12/11/2017 09:30AM Annual Visit 45 Height Weight BMI Blood Pressure 63.5 in 177 lbs 4 oz 30.9 kg/m2 137/83 mm[Hg] 04/01/2017 11:50AM Acute Visit 20 Height Weight Blood Pressure 63.5 in 120/86 mm[Hg] 02/17/2017 10:25AM Walk In 5 Height Weight BMI Blood Pressure 63.5 in 164 lbs 16 oz 28.8 kg/m2 94/62 mm[Hg] 12/13/2016 Height Weight BMI 63.5 in 164 lbs 28.70 kg/m2 10/16/2016 Height Weight BMI 63.5 in 164 lbs 28.70 kg/m2 09/04/2016 Height Weight Blood Pressure 63.5 in 164 lbs 110/64 mm[Hg] 08/02/2016 Height Weight BMI Blood Pressure 63.5 in 164 lbs 28.70 kg/m2 110/64 mm[Hg] 05/17/2016 Height Weight BMI Blood Pressure 63.5 in 164 lbs 28.70 kg/m2 143/71 mm[Hg] 11/14/2015 Weight Blood Pressure 167 lbs 122/68 mm[Hg] 11/14/2015 Height BMI 63.5 in 29.22 kg/m2 10/28/2015 Weight 166 lbs 10/28/2015 Height BMI Blood Pressure 63.5 in 29.05 kg/m2 134/77 mm[Hg] 09/05/2015 Height Weight BMI Blood Pressure 63.5 in 165 lbs 3.2 oz 28.91 kg/m2 118/92 mm[Hg] 12/22/2014 Height Weight Blood Pressure 63.5 in 154 lbs 122/72 mm[Hg] 10/21/2014 Height Weight 63.5 in 154 lbs 10/18/2014 Height Weight 63.5 in 154 lbs 2014 Height Weight BMI Blood Pressure (1) 63.5 in (1) 154 lbs 26.95 kg/m2 120/70 mm[Hg] (2) 63.5 in (2) 154 lbs 09/30/2014 Blood Pressure 102/70 mm[Hg] 09/07/2014 Height Weight BMI Blood Pressure 63.5 in 154 lbs 6.4 oz 26.92 kg/m2 140/86 mm[Hg]
[2022-07-11 09:57] LABS: Hemoglobin A1C* 6.81 % (0-5.6)
[2022-07-11 10:00] LABS: Albumin* 4.7 g/dL (3.3-5.0)
[2022-07-11 10:01] LABS: Chloride* 108 mmol/L (96-114); Potassium* 5.1 mmol/L (3.6-5.1); Sodium* 140 mmol/L (135-149)
[2022-07-11 10:03] LABS: Carbon Dioxide* 25 mmol/L (20-32); Cholesterol* 174 mg/dL (90-199); Creatinine* 0.9 mg/dL (0.5-1.5); Estimated Glomerular Filt Rate 72 ml/min
[2022-07-11 10:04] LABS: Alanine Aminotransferase* 108 U/L (4-35); Alkaline Phosphatase* 94 U/L (40-150); Aspartate Amino Transferase* 81 U/L (12-35); Blood Urea Nitrogen* 14 mg/dL (7-30); Calcium* 9.7 mg/dL (8.4-10.6); Glucose* 128 mg/dL (60-115); Total Protein* 7.6 g/dL (6.0-8.3); Triglycerides* 174 mg/dL (40-149)
[2022-07-11 10:05] LABS: HDL Cholesterol* 45 mg/dL (>=50); LDL Cholesterol Calculated 94 mg/dL (<100)
== END 2022-07-11 08:38 | disposition home or self-care (01) ==
DX: E78.5 Hyperlipidemia, unspecified (principal); E11.69 Type 2 diabetes mellitus with other specified complication
CPT/HCPCS: 36415; 80053; 80061; 83036

== ENCOUNTER 2022-12-12 13:45 | Outpatient (RCR) | payer BC, SELFPAY | END 2023-03-14 23:59 | disposition home or self-care (01) | PROVIDERS: Visit Provider Family Medicine | DX: M25.552 Pain in left hip (principal); Z51.89 Encounter for other specified aftercare | CPT/HCPCS: 97110; 97112; 97140; 97161 ==

== ENCOUNTER 2023-07-03 09:41 | Outpatient (CLI) | payer BC, SELFPAY ==
[2023-07-03 10:26] LABS: Albumin* 4.8 g/dL (3.3-5.0); Chloride* 105 mmol/L (96-114); Potassium* 4.4 mmol/L (3.6-5.1); Sodium* 138 mmol/L (135-149)
[2023-07-03 10:28] LABS: Anion Gap 4 mEq/L (7-15); Carbon Dioxide* 29 mmol/L (20-32); Cholesterol* 206 mg/dL (90-199); Estimated Glomerular Filt Rate 63 ml/min
[2023-07-03 10:29] LABS: Alanine Aminotransferase* 92 U/L (4-35); Alkaline Phosphatase* 77 U/L (40-150); Aspartate Amino Transferase* 79 U/L (12-35); Bilirubin Total* 0.7 mg/dL (0.1-1.5); Blood Urea Nitrogen* 12 mg/dL (7-30); Calcium* 9.6 mg/dL (8.4-10.6); Glucose* 139 mg/dL (60-115); Triglycerides* 176 mg/dL (40-149)
[2023-07-03 10:30] LABS: HDL Cholesterol* 46 mg/dL (>=50); LDL Cholesterol Calculated 125 mg/dL (<100)
[2023-07-03 12:19] LABS: Hemoglobin A1C* 7.4 % (0-5.6)
== END 2023-07-03 09:42 | disposition home or self-care (01) ==
DX: E11.9 Type 2 diabetes mellitus without complications (principal)
CPT/HCPCS: 36415; 80053; 80061; 83036

== ENCOUNTER 2023-09-22 18:15 | Emergency (ER) | payer BC, SELFPAY ==
[2023-09-22] VITALS (19 sets, daily range): BP systolic 134–201; BP diastolic 77–100; PULSE 57–71; RESP 22; TEMP 37.1; O2SAT 80–96; BMI 31.0
--- NOTE | 2023-09-22 18:51 | CRLHL7_ITS ---
For Patients: As a result of the Century Cures Act, medical imaging exams and procedure reports are released immediately into your electronic medical record. You may view this report before your referring provider. If you have questions, please contact your health care provider. INDICATION: Chest pain TECHNIQUE: Single view chest. FINDINGS: The lungs are clear. The heart, mediastinum and pulmonary vessels are of normal size. There is no evidence of pleural disease. Low lung volumes. Slight elevation the right hemidiaphragm. IMPRESSION: Negative chest. Dictated by Farnaz Dia MD @ 09/22/2023 7:51:53 PM (Electronically Signed)
[2023-09-22] MEDS: NITROGLYCERIN 0.4 MG TAB.SUBL SUBLINGUAL (18:59)
--- OUTSIDE RECORDS SUMMARY | 2023-09-22 18:59 | XMS_ITS | Data Portability ---
Author Name Unknown Address [address] [place] [address] Phone [phone] Organization [facility] - [facility], [facility] Address [address] [place] [address] Assessment Encounter Date Assessment Date Assessment LastModified by Organization Details LastModified Time 07/29/2020 07/29/2020 Pedrito came today with complaint of small cyst on the left middle finger. According to the patient she has this cyst since February 2020. she has a moderate intensity pain in that area. She wants this cyst to be removed. I will advise her excision in my office under local. Procedure was explained and all questions were answered. thank you Berenice Patino for consulting on your patient and involving me in the care of your patient lucille Not available 07/29/2020 18:02:25 08/04/2020 08/04/2020 Pedrito came today for excision of nodular skin lesion from little finger. Procedure was performed in my office under local. Patient tolerated the procedure well. Specimen was sent for pathology. She was advised to have follow-up after 10-12 days for removal of the sutures. [email or web address] Not available 08/05/2020 16:59:42 08/17/2020 08/17/2020 Pedrito came today for follow-up after excision of cyst from the left middle finger. she is doing fine. There is no active complaints. Sutures were removed. Pathology report was discussed with her. Pathology report was consistent with mucous cyst. I will advise her to keep the area clean with soap and water and apply antibiotic ointment. [email or web address] Not available 08/17/2020 17:20:15 10/16/2021 10/16/2021 Go to the hospital and have the COVID test done We will contact you with the results or you can find the results yourself on the patient portal Not available 10/16/2021 14:33:04 Plan of Treatment Reminders Order Date Submit Date Provider Last Modified By Organization Details Last Modified Time Details Appointments None recorded. Lab SARS CoV 2 RNA (COVID-19), QL, social sciences professor-PCR, respiratory specimen 2021 022 [facility] (Lab And Procedure Scheduling), [address] [place], [address], 2 19:18:41 Referral orthopedic referral 2019 020 [email or web address] 1 Caio Serrano MD, [address], [place], [address], 0 14:15:30 general surgeon referral 2019 020 HARPSTER Ann Marie Benitez MD, [address] [place], [address], 0 19:05:19 Procedures None recorded. Surgeries None recorded. Imaging None recorded. Medication Orders doxycycline monohydrate 100 mg capsule 2019 020 [email or web address] [id number], [address] [place], [place], [id number], 1 11:57:42 Patient TargetsNo targets recorded. Patient Instructions Encounter Date Encounter Id Patient Instructions Last Modified By Organization Details Last Modified Time 08/09/2021 [id number] venous blood draw* [email or web address] Not available 11/18/2021 12:02:15 type 2 diabetes: care instructions Not available 08/09/2021 12:57:34 08/04/2020 [id number] skin lesions: care instructions [email or web address] Not available 08/05/2020 17:00:33 07/14/2020 [id number] skin abscess: care instructions [email or web address] Not available 07/14/2020 13:21:52 Reason for Referral General Surgeon Referral for Abscess of skin and/or subcutaneous tissue musous cyst to left middle finger, started on antibiotics today becuase drainage is yellow to milky Referring Physician: Bhumika Patino, Urgent Care, Encounter Date: 07/14/2020 Orthopedic Referral for Digi magui mucous cyst mucous cyst left middle finger Referring Physician: Bhumika Patino, Urgent Care, Encounter Date: 07/14/2020 Results Created Date Observation Date Name Description Value Unit Range Abnormal Flag LastModifiedBy Organization Detail LastModifiedTime 10/16/19 22 10/16/2021 SARS- COVID 19 ANTIG EN YUE sars antigen yue test negati ve negati ve Not Available [facility] (Lab) [address] [place], [address], 10/16/2021 18:03:19 10/16/19 22 10/16/2021 SARS- COVID 19 ANTIG EN YUE lot number [id number] Not Available [facility] (Lab) [address] [place], [address], 10/16/2021 18:03:19 10/16/19 22 10/16/2021 SARS- COVID 19 ANTIG EN YUE expiration date 11 Not Available [facility] (Lab) [address] [place], [address], 10/16/2021 18:03:19 10/16/19 22 10/16/2021 SARS- COVID 19 ANTIG EN YUE intcon valid valid Not Available [facility] (Lab) [address] [place], [address], 10/16/2021 18:03:19 10/16/19 22 10/16/2021 SARS- COVID 19 ANTIG EN YUE first covid test? no Not Available [facility] (Lab) [address] [place], [address], 10/16/2021 18:03:19 10/16/19 22 10/16/2021 SARS- COVID 19 ANTIG EN YUE healthcare empl w/PT contact no Not Available [facility] (Lab) [address] [place], [address], 10/16/2021 18:03:19 10/16/19 22 10/16/2021 SARS- COVID 19 ANTIG EN YUE [email or web address] no Not Available [facility] (Lab) [address] [place], [address], 10/16/2021 18:03:19 10/16/19 22 10/16/2021 SARS- COVID 19 ANTIG EN YUE [email or web address] no Not Available [facility] (Lab) [address] [place], [address], 10/16/2021 18:03:19 10/16/19 22 10/16/2021 SARS- COVID [address] EN YUE ICU st time of covid testing? no Not Available [facility] (Lab) [address] [place], [address], 10/16/2021 18:03:19 10/16/19 22 10/16/2021 SARS- COVID 19 ANTIG EN YUE resident in congregate care? no Not Available [facility] (Lab) [address] [place], [address], 10/16/2021 18:03:19 10/16/19 22 10/16/2021 SARS- COVID 19 ANTIG EN YUE ? not pregna nt Not Available [facility] (Lab) [address] [place], [address], 10/16/2021 18:03:19 Result Notes None recorded. Problems Name Status Onset Date Resolution Date Notes Provider Name and Address Organization Details Recorded Time Diabetes mellitus Active 0 Edwin Pelaez, EMT null, [facility] 07/14/2020 13:07:14 Asthma Active Cynthia Johnson, WILL null, [facility] 10/16/2021 14:13:35 Problem Notes Documentation Provider Name and Address Organization Details Recorded Time General Surgeon Consult Note : [facility] ? ? [address] [facility] [address]YACZP, MARGARET (id #[id number], : 1960) [facility] [address] [place] [address] , date: 07/29/2020RE: Pedrito Olguin, : 1960, PT ID #[id number] PATIÑOP-Moisés, I would like to thank you for referring Pedrito Olguin to our practice for consultation and evaluation of Cyst pt in for cyst to left middle finger, on 07/29/2020. I have enclosed a copy of the office evaluation for your records. Once again, thank you for allowing me to participate in the care of this patient. Sincerely, Electronically Signed by: ASIA BENITEZ MD Encounter Reason/Date Cyst pt in for cyst to left middle finger 07/29/2020 - 03:30PM - [facility] History of Present Illness Pedrito came today with complaint of small cyst on middle finger of left hand. According to the patient she noticed this cyst since February 2020. There is a moderate aching pain in that area. She is also diabetic. Her symptoms were reviewed. Her past medical history, family history and social history was reviewed. Review of Systems Patient reports no fever, no night sweats, no significant weight loss, and no exercise intolerance. She reports no chest pain, no arm pain on exertion, no shortness of breath when walking, no shortness of breath when lying down, no palpitations, and no known heart murmur. She reports no cough, no wheezing, no shortness of breath, and no coughing up blood. She reports no abdominal pain, no vomiting, normal appetite, no diarrhea, and not vomiting blood. She reports no depression, no sleep disturbances, feeling safe in relationship, and no alcohol abuse. Physical ExamPatient is a 59-year-old female. Constitutional:General Appearance: healthy-appearing, well-nourished, and well-developed. Level of Distress: NAD. Ambulation: ambulating normally. Psychiatric:Insight: good judgement. Mental Status & Affect: normal mood and affect and active and alert. Orientation: to time, place, and person. Neck:Neck: FROM, trachea midline, and no masses. Lymph Nodes: no cervical LAD, supraclavicular LAD, axillary LAD, or inguinal LAD. Thyroid: non-tender and no nodules. Lungs:Respiratory effort: good. Auscultation: good air movement and CTA except as noted. Cardiovascular:Apical Impulse: not displaced or accentuated. Heart Auscultation: RRR, normal S1 & S2, and no murmurs, gallop or rub. Neck vessels: no JVD or carotid bruits. Pulses including femoral / pedal: normal throughout. Musculoskeletal::Extremitie s:There was a small cyst on the left middle finger.Procedure DocumentationNone recordedAssessment/PlanMarg aret came today with complaint of small cyst on the left middle finger. According to the patient she has this cyst since February 2020. she has a moderate intensity pain in that area. She wants this cyst to be removed. I will advise her excision in my office under local. Procedure was explained and all questions were answered. thank you Berenice Gilliamey for consulting on your patient and involving me in the care of your patient 1. Cyst of skinL72.9: Follicular cyst of the skin and subcutaneous tissue, unspecified Return to Office Asia Benitez MD for Procedure[facility] on 08/04/2020 at 03:00 PM BHUMIKA bae, [facility] 07/30/2020 10:09:16 Procedures Surgical History Date Name Laterality Status Provider Name and Address Organization Details Recorded Time 1 Urgent-Venipun cture completed Anais Ojeda CMA [facility] 08/09/2021 11:56:30 0 Generic Procedure Template 2 completed Asia Benitez MD [address], [address], [facility] 08/05/2020 16:59:19 Imaging Results None recorded. Procedure Notes None recorded. Medical Equipment None Reported. Allergies No known drug allergies Medications Name Sig Start Date Stop Date Status Note LastModified by Organization Details LastModified Time clindamycin HCl 300 mg capsule TK 1 C PO Q 8 H FOR 10 DAYS 08/09 completed Not Available Not Available Not Available azithromyci n 250 mg tablet TAKE 2 TABLETS BY MOUTH TODAY, THEN TAKE 1 TABLET DAILY FOR 4 DAYS 08/09 completed Not Available Not Available Not Available prednisone 20 mg tablet TK 1 T PO TID FOR 10 DAYS 10/16 completed Not Available Not Available Not Available famotidine 20 mg tablet TK 1 T PO BID 10/16 completed Not Available Not Available Not Available benzonatate 100 mg capsule TAKE 1 TO 2 CAPSULES BY MOUTH EVERY 8 HOURS NEEDED COUGH 08/09 completed Not Available Not Available Not Available doxycycline monohydrate 100 mg capsule Take 1 capsule twice a day by oral route for 7 days. 08/09 completed Not Available Not Available Not Available cephalexin 500 mg capsule TK 1 C PO TID FOR 10 DAYS 08/09 completed Not Available Not Available Not Available polymyxin B sulfate 10,000 unit-trimet hoprim 1 mg/mL eye drops active Not Available Not Available Not Available montelukast 10 mg tablet TK 1 T PO QD active Not Available Not Available No t Available gabapentin 100 mg capsule TK 1 C PO QID active Not Available Not Available No t Available albuterol sulfate HFA 90 mcg/actuati on aerosol inhaler INHALE 1 TO 2 PUFFS BY MOUTH EVERY 4 TO 6 HOURS NEEDED active Not Available Not Available No t Available metformin ER 500 mg tablet,exte nded release 24 hr TK 1 T PO QD active Not Available Not Available No t Available loratadine 10 mg tablet TK 1 T PO QD 10/16 completed Not Available Not Available Not Available naproxen 500 mg tablet TK 1 T PO BID FOR 5 DAYS. TAKE WITH FOOD 08/09 completed Not Available Not Available Not Available montelukast active Not Available Not A vailable Not Available pravastatin active Not Available Not A vailable Not Available metformin 10/16 completed Not Available Not Available Not Available Virtussin AC 10 mg-100 mg/5 mL oral liquid TAKE 10 ML PO Q 8 HOURS PRF COUGH 10/16 completed Not Available Not Available Not Available Accu-Chek Guide test strips TEST BLOOD SUGARS ONCE D active Not Available Not Available No t Available Accu-Chek Guide Glucose Meter USE TO TEST BLOOD SUGAR ONCE D active Not Available Not Available No t Available Shingrix (PF) 50 mcg/0.5 mL intramuscul ar suspension, kit ADM 0.5ML IM UTD 10/16 completed Not Available Not Available Not Available Accu-Chek Fastclix Lancet Drum USE TO TEST BLOOD SUGAR ONCE D active Not Available Not Available No t Available Vitals Date Recorded Body weight Body height Body mass index (BMI) Respiratory rate Heart rate Oxygen saturation Oxygen saturation in Arterial blood by Pulse oximetry Body temperature Systolic blood pressure Diastolic blood pressure Provider Name and Address Organization Details Last Updated DateTime 0 12545.9 3 g 160.02 cm 29.6 kg/m2 18 /min 78 /min 96 % 96 % 98.2 [degF] 135 mm[Hg] 89 mm[Hg] DARBY Hill null, [facility] 0 13:04:35 Date Recorded Body height Oxygen saturation Oxygen saturation in Arterial blood by Pulse oximetry Heart rate Body temperature Body mass index (BMI) Body weight Systolic blood pressure Diastolic blood pressure Provider Name and Address Organization Details Last Updated DateTime 0 160.02 cm 96 % 96 % 64 /min 97.6 [degF] 30.1 kg/m2 31128.7 g 110 mm[Hg] 72 mm[Hg] Marti Billings CMA null, [facility] 0 17:57:23 Date Recorded Body height Oxygen saturation Oxygen saturation in Arterial blood by Pulse oximetry Heart rate Body temperature Body mass index (BMI) Body weight Systolic blood pressure Diastolic blood pressure Provider Name and Address Organization Details Last Updated DateTime 0 160.02 cm 94 % 94 % 64 /min 97.6 [degF] 30.3 kg/m2 11706.3 g 128 mm[Hg] 89 mm[Hg] Marti Billings CMA null, [facility] 0 17:34:04 Date Recorded Body height Oxygen saturation Oxygen saturation in Arterial blood by Pulse oximetry Heart rate Body temperature Body mass index (BMI) Body weight Systolic blood pressure Diastolic blood pressure Provider Name and Address Organization Details Last Updated DateTime 0 160.02 cm 95 % 95 % 68 /min 97.6 [degF] 29.8 kg/m2 88397.5 2 g 113 mm[Hg] 78 mm[Hg] Marti Billings CMA null, [facility] 0 16:55:51 Date Recorded Body height Respiratory rate Oxygen saturation Oxygen saturation in Arterial blood by Pulse oximetry Body temperature Heart rate Body mass index (BMI) Body weight Systolic blood pressure Diastolic blood pressure Provider Name and Address Organization Details Last Updated DateTime 1 160.02 cm 18 /min 95 % 95 % 97.8 [degF] 70 /min 30.1 kg/m2 02173.7 g 120 mm[Hg] 70 mm[Hg] Anais Ojeda CMA null, [facility] 1 11:57:15 Date Recorded Body height Provider Name an d Address Organization Details Last Updated DateTime 10/16/2021 160.02 cm [facility] 10/16/2021 14:03:08 Date Recorded Body mass index (BMI) Body weight Heart rate Respiratory rate Body temperature Oxygen saturation Oxygen saturation in Arterial blood by Pulse oximetry Systolic blood pressure Diastolic blood pressure Provider Name and Address Organization Details Last Updated DateTime 2 30.5 kg/m2 71080.5 9 g 64 /min 18 /min 98 [degF] 96 % 96 % 132 mm[Hg] 83 mm[Hg] Cynthia Johnson CMA null, [facility] 2 14:10:51 Social History Question Answer Notes LastModified by Organizat ion Details LastModified Time Tobacco Smoking Status Never Smoker Edwin Pelaez, EMT null, [facility] 07/14/2020 13:07:56 Do You Have An Advance Directive? No [email or web address] Information not available 08/09/2021 What Is Your Level Of Alcohol Consumption? Occasional [email or web address] Information not available 07/14/2020 Are You Blind Or Do You Have Difficulty Seeing? No Information not available 08/09/2021 Is Blood Transfusion Acceptable In An Emergency? Yes [email or web address] Information not available 08/09/2021 What Is Your Level Of Caffeine Consumption? Occasional [email or web address] Information not available 07/14/2020 Are You Deaf Or Do You Have Serious Difficulty Hearing? No [email or web address] Information not available 08/09/2021 What Type Of Diet Are You Following? DIABETIC [email or web address] Information not available 07/14/2020 Live Alone Or With Others? With Others [email or web address] Information not available 07/14/2020 Alcohol - What Type And How Much? No [email or web address] Information not available 08/09/2021 Any Thoughts Of Suicide? No [email or web address] Information not available 08/09/2021 Do You Feel Safe In Your Home? Yes [email or web address] Information not available 08/09/2021 Has Anyone Touched You In A Way You Didn't Like Or Threatened To Hurt You? No [email or web address] Information not available 08/09/2021 Has You Every Been Hurt By Someone Taking Care Of You? No [email or web address] Information not available 08/09/2021 Marital Status [email or web address] Informatio n not available 07/14/2020 Do You Have A Medical Power Of Earth Science Teacher? No [email or web address] Information not available 08/09/2021 What Was The Date Of Your Most Recent Tobacco Screening? 08/09/2021 [email or web address] Information not available 08/09/2021 What Is Your Relationship Status? [email or web address] Information not available 08/09/2021 Do You Use Your Seat Belt Or Car Seat Routinely? Yes [email or web address] Information not available 08/09/2021 Are You Sexually Active? No [email or web address] Information not available 08/09/2021 Do You Have Smoke And Carbon Monoxide Detectors In Your Home? Yes Information not available 08/09/2021 Are You Passively Exposed To Smoke? No [email or web address] Information no t available 08/09/2021 Do You Use Any Illicit Or Recreational Drugs? No [email or web address] Information not available 08/09/2021 Do You Use Sunscreen Routinely? No [email or web address] Information not available 08/09/2021 Has Tobacco Cessation Counseling Been Provided? No [email or web address] Information not available 08/09/2021 Have You Recently Traveled Abroad? No Information not available 08/09/2021 Do You Or Have You Ever Used Any Other Forms Of Tobacco Or Nicotine? No [email or web address] Information not available 08/09/2021 Sex: Female Functional Status Question Answer Note LastModified by Organizat ion Details LastModified Time Do you have difficulty walking or climbing stairs? No [email or web address] Information not available 08/09/2021 Do you have difficulty doing errands alone? No [email or web address] Information not available 08/09/2021 Are you able to care for yourself? Yes [email or web address] Information not available 08/09/2021 Do you have difficulty dressing or bathing? No [email or web address] Information not available 08/09/2021 What is your exercise level? Occasional Information not available 07/14/2020 Mental Status Question Answer Note LastModified by Organization D etails LastModified Time Do you have difficulty concentrating, remembering or making decisions? No [email or web address] Information no t available 08/09/2021 Family History Nothing Reported. Medical History Condition Response Endocrine/Metabolic Disorders (Thyroid, Diabetes, PCOS) Y Asthma or Breathing Problems Y Gynecological HistoryNo gynecological history recorded. Obstetrics History GPAL:G 0 P 0 0 0 0 Past Encounters Encounter ID Performer Location Encounter Start Date Encounter Closed Date Diagnosis/Indication [id number] BHUMIKA VADIM [facility] [address] [place] [address] 07/14/2020 12:45:30 07/14/2020 14:31:48 Abscess of skin and/or subcutaneous tissue Digital mucous cyst [id number] Asia Benitez MD [facility] [address] [id number] 07/29/2020 17:11:54 08/01/2020 18:17:27 Cyst of skin [id number] Asia Benitez MD [facility] [address] [address] 08/04/2020 16:49:39 08/05/2020 18:45:10 Skin lesion [id number] Asia Benitez MD [facility] [address] [id number] 08/17/2020 16:47:28 08/23/2020 16:06:36 Skin lesion Digital mucous cyst [id number] KAYLYN GARCIAP-LIAZ [facility] [address] [place] [address] 08/09/2021 10:51:27 08/10/2021 14:57:22 Type 2 diabetes mellitus without complication [id number] SALLY SLATER, STEAM GIGGER-BC [facility] [address] [place] [address] 10/16/2021 13:55:45 10/16/2021 18:50:21 Viral screening Health Concerns Section Related Observation LastModified by Organization Detai ls LastModified Time None Recorded Concern Status LastModified by Organization Details LastModified Time None Recorded Advance Directives Directive N: Payers Encounter Date Sequence Insurance Name Policy Number Policy Ramos Covered Member ID Ramos Member ID Guarantor Name 10/16/2021 1 [employer] [employer] [id number] Anthony Olguin [id number] Pedrito Olguin 08/09/2021 1 [employer] [employer] [place] [id number] Anthony Olguin [id number] Pedrito Mercadoe 08/17/2020 1 [employer] [employer] [place] [id number] Anthony Olguin [id number] Pedrito Olguin 08/04/2020 1 [employer] [employer] [place] [id number] Anthony Olguin [id number] Pedrito Mercadoe 07/29/2020 1 [employer] [employer] [place]) [id number] Anthony Olguin [id number] Pedrito Mercadoe 07/14/2020 1 [employer] [employer] [place] [id number] Anthony Olguin [id number] Pedrito Olguin Notes Date Note Type Note Provider Name and Address Organization Details Recorded Time 07/14/2020 text/html HPI Notes: 59 yr old female brought in lab order from primary care and would like to have it drawn and is also her to have left middle finger looked at she has history of mucous cysts she noted one appearing to left middle finger last week and has noted that drainage BHUMIKA bae [facility] 07/14/2020 13:39:46 07/29/2020 text/html HPI Notes: Pedrito came today with complaint of small cyst on middle finger of left hand. According to the patient she noticed this cyst since February 2020. There is a moderate aching pain in that area. She is also diabetic. Her symptoms were reviewed. Her past medical history, family history and social history was reviewed. Asia Benitez MD [address], [place], [address], [facility] 07/29/2020 18:03:44 08/04/2020 text/html HPI Notes: Pedrito came today for excision of cystic lesion from the little finger. Procedure was performed in my office under local. Patient tolerated the procedure well Asia Benitez MD [address], [place], [address], [facility] 08/05/2020 17:00:37 08/17/2020 text/html HPI Notes: Pedrito came today for follow-up after excision of cyst from the left middle finger. She is doing fine. There is no active complaints the wound is healing nicely. Asia Benitez MD [address], [place], [address], [facility] 08/17/2020 17:20:49 08/09/2021 text/html HPI Notes: Pedrito Olguin is here today for Blood work pt has her orders with her. TOR GARCIA-BC [address], [place], [address], [facility] 08/09/2021 12:58:38 10/16/2021 text/html HPI Notes: Pedrito Olguin is a 61-year-old female who need a PCR COVID test for travel. She denies any symptoms today. TOR GARCIA-BC [address], [place], [address], [facility] 10/16/2021 14:33:23 OBGyn Episode No OBEpisode recorded.
--- OUTSIDE RECORDS SUMMARY | 2023-09-22 18:59 | XMS_ITS | Clinical Summary ---
Author Name Unknown Organization [facility] Address [place], [place] [address] Care Team Providers Care Shank Breaker Name Role Phone Unknown, Doctor Primary Care Provider Unavailabl e Allergies No known active allergies Medications Medication Sig Dispensed Refills Start Date End Date Status metFORMIN (GLUCOPHAGE XR) 500 mg Extended-Release tablet Take 1 Tablet by mouth once daily. 0 09/30/2022 Active Coenzyme Q10 (Co Q-10) 200 mg capsule Co Q-10 0 Acti ve pravastatin (PRAVACHOL) 20 mg tablet Take 1 Tablet by mouth at bedtime. 0 09/30/2022 Active montelukast (SINGULAIR) 10 mg tablet Take 1 Tablet by mouth once daily in the evening. 0 09/30/2022 Active glucosamine rosales 2KCl-chondroit 500-400 mg tab Take by mouth. 0 Active biotin 1 mg cap Take 1 mg by mouth. 0 Active aspirin (ECOTRIN) 81 mg enteric coated tablet once daily. 0 Active polyethylene glycol 3350 (DULCOLAX BALANCE ORAL) Stool Softener 0 Active Active Problems Problem Noted Date Diagnosed Date Mini stroke 10/30/2022 Overview: Jun 2015: Left side of face symptoms Type 2 diabetes mellitus wit hout complication, with long-term current use of insulin 10/30/2022 Encounters Date Type Department Care Team Description 07/03/2023 Travel from Last 3 Months Social History Tobacco Use Types Packs/Day Years Used Date Smoking Tobacco: Never Smokeless Tobacco: Never Tobacco Cessation:Counseling Given: Not Answered Alcohol Use Standard Drinks/Week Comments Not Currently 0 (1 standard drink = 0.6 oz pur e alcohol) 3 drinks per year Social Connections Answer Date Recorded Frequency of Communication with Friends and Fami ly Not on file 10/30/2022 Sex and Gender Information Value Date Recorded Sex Assigned at Not on file Gender Identity Not on file Sexual Orientation Not on file Obstetrics History Last Filed Vital Signs Vital Sign Reading Time Taken Comments Blood Pressure 128/82 10/30/2022 12:34 PM [employer] Pulse 67 10/30/2022 12:34 PM [employer] Temperature - - Respiratory Rate 14 05/07/2023 1:52 PM CDT Oxygen Saturation 96% 10/30/2022 12: 34 PM [employer] Inhaled Oxygen Concentration - - Weight 82.9 kg (182 lb 11.2 oz) 023 12:34 PM [employer] Height - - Body Mass Index - - Plan of Treatment Health Maintenance Due Date Last Done Comments COVID-19 vaccine series (#1) 04/04/1960 Pneumococcal series for age 6-64 (1 of 2 - PCV) 1965 Tdap 1970 Depression screening for age 12+ 1971 HIV for age 15-65 1974 BMI (ht and wt on same day) for age 18+ 1977 Hepatitis C screening for age 18-79 1977 Tetanus booster 1979 Pap test for age 21-65 1980 Colonoscopy through age 75 2004 Lipids for age 45-75 2004 Mammogram for age 45-75 2004 Zoster (shingles) series for age 50+ (1 of 2) 10/05/19 10 Influenza for age 50-64 04/26/2023 Care Teams Shank Breaker Relationship Specialty Start Date End Date Unknown, Doctor . PCP - General 09/25/06
--- OUTSIDE RECORDS SUMMARY | 2023-09-22 18:59 | XMS_ITS | Clinical Summary ---
Author Name Unknown Organization [facility] Address [address] [place] [address] Care Team Providers Care Skin Carver Name Role Phone Stephy Alexis Unavailable Unavailab Izzy Mckeon Primary Care Provider + [phone] Allergies Active Allergy Reactions Criticality Noted Date Comments No Known Drug Allergies 07/16/2001 Medications Medication Sig Dispensed Refills Start Date End Date Status MULTIVITAMIN/IRON OR TABS 1 chewable tablet 2 times weekly 0 0 01/07/2007 Active Unclassified (OTHER) Artificial Tears OU prn . 0 Active docusate sodium (COLACE) 100 mg oral capsule Take 1 capsule (100 mg total) by mouth as needed 0 10/07/2012 Active Lactobacillus-Inu raudel (CULTURELLE) oral CAPS 0 10/07/2012 Active montelukast (SINGULAIR) 5 mg oral tablet (chewable) Take 1 tablet (5 mg total) by mouth every night at bedtime 30 tablet 11 05/13/2013 Active meloxicam (MOBIC) 7.5 mg oral tabletIndications :Swollen joint 1-2 tablets daily for arthritis 60 tablet 5 09/10/2013 Active Additional Information Patient not taking.Reason: Patient Choice, Reported on 01/30/2022 omeprazole EC (PRILOSEC OTC) 20 mg oral EC tablet (delayed release) Take 1 tablet by mouth every day 0 Active Glucosamine-Chond roitin 500-400 MG oral tablet 0 Active estradiol (ESTRACE VAGINAL) 0.1 mg/g vaginal vaginal cream Apply / insert intravaginally or topically to external vulvar area - small quantity 2x/week for maintenance. 42.5 g 11 12/28/2013 Active Additional Information Patient not taking.Reason: Directed by Physician, Reported on 01/30/2022 rizatriptan (MAXALT) 10 mg oral tablet 1 tablet at onset of migraine. Repeat in 2 hours. Max 30 mg per 24 hours. 9 tablet 3 11/30/2014 Active fluticasone (FLONASE) 50 mcg/act nose nasal spray Instill 2 sprays into each nostril every day. 0 Active aspirin 325 mg oral tablet Take 325 mg by mouth every day. 0 Active metFORMIN (GLUCOPHAGE) 500 mg oral tablet Take 500 mg by mouth. 0 Active escitalopram (LEXAPRO) 5 mg oral tablet Take 5 mg by mouth every day. 0 Active biotin 1 mg oral CAPS capsule Take 1 mg by mouth every day. 0 Active bromfenac (PROLENSA) 0.07 % eye SOLNIndications:N uclear senile cataract of both eyes One drop nightly at bedtime in operative eye starting 1 day prior to surgery and 4 weeks post operatively. 3 mL 1 01/28/2022 Active ofloxacin (OCUFLOX) 0.3 % eye eye dropsIndications: Nuclear senile cataract of both eyes One drop three times daily in operative eye starting 1 day prior to surgery and 7 days post operatively. 5 mL 1 01/28/2022 Active prednisoLONE acetate (PRED FORTE) 1 % eye eye dropsIndications: Nuclear senile cataract of both eyes One drop three times daily in operative eye starting 1 day prior to surgery and 4 weeks post operatively.. 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 Myopia with presbyopia 08/28/2012 Family Hx Breast Ca - mother, MGM 07/05/20081992 Hysterectomy, ovaries retained 07/05/2008 Common Migraine without Mention of Intractable M igraine 10/25/2005 Overview: Danna evans follows in the past;;stable, use Relpax 1/2 of a 20mg tab Esophageal reflux 12/21/2002 Overview: Ranitidine chronically (prior protonix cause dgas) Family History of Diabetes Mellitus 12/21/2002 Unspecified Hearing Loss: left 01/20/2002 Overview: On left Allergic Rhinitis, Cause Unspecified Overview: dust, molds Resolved Problems Problem Noted Date Diagnosed Date Resolved Date Pain in joint, upper arm 09/26/201112/2013 Pain in joint, forearm 09/26/201112/28 Pain in joint, shoulder region 08/23/2011 12/28/2013 Back pain 06/06/2011 12/28/2013 Right leg pain 06/06/2011 12/28/2013 Pain in joint, lower leg 01/13/200912/2013 Glucose intolerance 09/02/2008 12/29/19 14 Classical Migraine without M ention of Intractable Migraine 10/25/2005 12/28/2013 Headache(784.0) 07/13/2004 12/28/2013 Attention Deficit Disorder with Hyperactivity 08/26/18 95 03/31/2014 Overview: Started methylphenidate Depressive Disorder, not Elsewhere Classified 08/26/18 95 03/31/2014 Overview: Chronic since highschool Immunizations Name Administration Dates Next Due Influenza Intradermal 06/04/2013 Td 08/15/2000 Family History Medical History Relation Comments Psychiatry Daughter 3 ADD Diabetes Father CVA Hypertension Father Pulmonary Maternal Grandfather Rare lung d isease Cancer Maternal Grandmother Breast Bone/Joint Mother Arthritis Cancer Mother breast Diabetes Mother Neurology Mother Tremor Cancer Mother's Sister breast Hypertension Other 1 Neurology Other 2 Migraine Heart/Vascular Paternal Grandfather Heart Disea se/Colon Ca Diabetes Paternal Grandmother Diabetes/Ht n/Stroke Relation Status Comments Daughter 1 Alive Daughter 2 Alive Daughter 3 Father Alive Maternal Grandfather (Age ?) lung disea se Maternal Grandmother (Age 40's) cancer - breast Mother Alive breast ca Mother's Sister Other 1 Other 2 Paternal Grandfather (Age 70's) cancer Paternal Grandmother (Age 70's) old age Social History Tobacco Use Types Packs/Day Years Used Date Smoking Tobacco: Never Smokeless Tobacco: Never Tobacco Cessation:Counseling Given: No Alcohol Use Standard Drinks/Week Comments Yes 0 (1 standard drink = 0.6 oz pur e alcohol) rare Sex and Gender Information Value Date Recorded Sex Assigned at Not on file Gender Identity Not on file Sexual Orientation Not on file Last Filed Vital Signs Vital Sign Reading Time Taken Comments Blood Pressure 100/64 08/25/2014 2:27 PM [employer] Pulse 58 08/25/2014 2:27 PM [employer] Temperature 36.5 ??C (97.7 ??F) 08/25/2014 2:27 PM CS T Respiratory Rate 16 11/17/2012 12:20 PM CDT Oxygen Saturation 95% 05/13/2013 8:50 AM CDT Inhaled Oxygen Concentration - - Weight 69.1 kg (152 lb 6.4 oz) 08/25/2014 2:27 P M [employer] Height 161.3 cm (5' 3.5) 08/25/2014 2:27 PM [employer] Body Mass Index 26.57 08/25/2014 2:27 PM [employer] Plan of Treatment Health Maintenance Due Date Last Done Comments CT Colonography Every 5 Years 2004 Cologuard Every 3 Years 2004 FIT/FOBT Every 1 Year 2004 08/07/2004 Sigmoidoscopy Every 5 Years 2004 Lipids 12/28/2014 12/28/2013, 09/26, 10/19/2011, Additional history exists Breast Cancer Screening (Mammo) 06/25/2015 06/25/2014, 06/03/2013, 05/29/2012, Additional history exists Colonoscopy 01/13/2017 01/13/2007, 01/13/2007 Colorectal Cancer Screening 01/13/2017 RSV Adult 60+ and patients (Shared Decision Making) (1 - 1-dose 60+ series) 2019 Shingles (3 of 3) 03/08/2020 01/12/2020, 09/30/2014 Flu 6M+ (#1) 03/26/2023 06/04/2013 COVID-19 Vaccine (3 - 2022- season) 2023 01/23/2022, 12/29/2020 DTaP/Tdap/Td/Tetanus (2 - Td or Tdap) 01/06/2029 01/06/2019, 08/15/2000 Hep B Aged Out No longer eligi ble based on patient's age to complete this topic Pneumococcal 0-64 Aged Out No longer eligible based on patient's age to complete this topic Guarantor Name Account Type Relation to Patient Date of Phone Billing Address Karley Olguin Personal/Family Self 1960 [id number] [place] [address] Karley Olguin Personal/Family Self 1960 [address] [place] [address] Karley Olguin Personal/Family Self 1960 [address] [place] [address] Karley Olguin Personal/Family Self 1960 [id number] [place] [address] Karley Olguin Personal/Family Self 1960 [id number] [place] [address] Karley Olguin Personal/Family Self [address] [place] [address] Karley Olguin Personal/Family Self 1960 [id number] [place] [address] Karley Olguin Personal/Family Self 1960 [id number] [place] [address] Karley Olguinth Personal/Family Self 1960 [id number] [place] [address] SharifKarleybeth Personal/Family Self 1960 [address] [place] [address] Karley Olguin Personal/Family Self 1960 [id number] [place] [address] [id number] CLARK Workers Comp Employer [address] [place] [address] [employer] Other [address] [place] [address] [id number] CLARK [employer] Employer [address] [place] [address] Advance Directives For more information, please contact: [phone] Latest Code Status on File Code Status Date Activated Date Inactivated Comments Full Code 11/17/2012 8:36 AM 11/17/2012 12:38 PM Code Status History Code Status Date Activated Date Inactivated Comments None 11/19/2003 11:49 AM 11/19/2003 11:49 AM Care Teams Skin Carver Relationship Specialty Start Date End Date Stephy Alexis APNP PCP - Obstetrics/Gynecology 06/14/08 Izzy Quinonez APNP PCP - General Family Medicine 02/17/15
--- OUTSIDE RECORDS SUMMARY | 2023-09-22 18:59 | XMS_ITS | Data Portability ---
Author Name Unknown Address [address] [place] [address] Phone [phone] Organization [facility] [place], TEST SITE Address [address] [place] [phone] Assessment Encounter Date Assessment Date Assessment LastModified by Organization Details LastModified Time 01/27/2019 01/27/2019 58 year old female with sinusitis. You will be treated with azithromycin 250mg tablet by mouth. Take 2 tablets by mouth today and one tablet by mouth each subsequent day until the medication is completed. Use flonase, one spray each nostril twice daily after rinsing with a non-medicated Over the counter saline solution such as Neti Pot or spray (instructions provided). Monitor for fevers, worsening facial pain or new types of symptoms such as discoloration of discharge or ear pain. Follow-up at this clinic if symptoms do not improve within 5 days. [email or web address] Not available 01/27/2019 12:13:37 Plan of Treatment Reminders Order Date Submit Date Provider Last Modified By Organization Details Last Modified Time Details Appointments None recorded. Lab rapid strep group A, throat 2018 019 In-House Results, For Internal Use Only, Do Not Delete/merge, [id number] 9 11:34:23 Referral None recorded. Procedures cerumen removal (PROC) 2017 018 [email or web address] Not available 8 14:43:02 Surgeries None recorded. Imaging None recorded. Medication Orders amoxicilli n 875 mg-potassi um clavulanat e 125 mg tablet 2018 019 INTERFACE [facility] #[id number], [address], [place], [place], [id number], 9 11:35:02 fluticason e propionate 50 mcg/actuat ion nasal spray,susp ension 2018 019 INTERFACE [facility] #[id number], [address], [place], [place], [id number], 9 11:39:41 azithromyc in 250 mg tablet 2018 019 [email or web address] [facility] #[id number], [address], [place], [place], [id number], 9 11:09:55 fluticason e propionate 50 mcg/actuat ion nasal spray,susp ension 2018 019 INTERFACE [facility] #[id number], [address] [facility], [place], [place], [id number], 9 12:10:25 Augmentin 875 mg-125 mg tablet 2017 018 [facility] #[id number], [address] [place], [place], [id number], 9 11:14:59 Patient TargetsNo targets recorded. Patient Instructions Encounter Date Encounter Id Patient Instructions Last Modified By Organization Details Last Modified Time 04/13/2019 [id number] patient follow up phone call* [email or web address] Not available 04/13/2019 22:05:04 sinusitis: care instructions Not available 04/13/2019 11:39:32 saline nasal washes: care instructions Not available 04/13/2019 11:39:32 seasonal allergies: care instructions Not available 04/13/2019 11:39:32 Patient instructed to follow-up with primary care provider within 2-3 days. Patient is to go to the emergency room if worse, if there is any difficulty breathing, increased pain, uncontrolled vomiting or diarrhea. Patient may return to the urgent care if he/she feels she is not improving sufficiently and is unable to see primary care provider in a timely manner. Not available 04/13/2019 11:38:35 Sinusitis is an infection in the sinuses, I recommend the patient take ejjh-ool-byeayax guaifenesin per package direction for the congestion. Advised the patient guaifenesin helps to loosen up the congestion and not dry it up into the sinus cavities. If prescribed take antibiotics as directed. Advised patient I recommend a probiotic at least once a day while taking an antibiotic to help prevent diarrhea or yeast infections.Advis ed the patient to take Tylenol or ibuprofen as needed for pain and fever, drink plenty of fluids. If they have a sore throat try salt water gargles or throat lozenges. Follow up with your PCP in 3-5 days. Not available 04/13/2019 11:38:47 01/27/2019 [id number] patient follow up phone call* manolo Not available 01/27/2019 22:30:48 06/05/2018 [id number] patient follow up phone call* marek Not available 06/11/2018 12:15:21 earwax blockage: care instructions Not available 06/05/2018 13:27:29 sinusitis: care instructions Not available 06/05/2018 13:27:29 Patient instructed to follow-up with primary care provider within 2-3 days. Patient is to go to the emergency room if worse, if there is any increased difficulty breathing, increased pain, uncontrolled vomiting or diarrhea. Patient may return to the urgent care if he/she feels she is not improving sufficiently and is unable to see primary care provider in a timely manner. Not available 06/05/2018 13:27:39 Upper respiratory infection adult. Advised patient to use medications as directed including albuterol rescue inhaler and any maintenance medications inhaled or oral if prescribed. Drink plenty of fluids. Avoid allergens or activities which exacerbate the wheezing. Follow-up with the primary care in 2-3 days. Patient advised to go directly to the emergency room if they develop increased difficulty breathing or wheezing. Not available 06/05/2018 13:27:46 Reason for Referral None Reported. Results Created Date Observation Date Name Description Value Unit Range Abnormal Flag LastModifiedBy Organization Detail LastModifiedTime 04/13/2019 rapid strep group A, throa t Strep negati ve Not Available In-House Results For Internal Use Only, Do Not Delete/merge, [id number] 04/13/2019 11:20:07 Result Notes None recorded. Problems Name Status Onset Date Resolution Date Notes Provider Name and Address Organization Details Recorded Time Cerebrovascular accident Active 06/05/20 18 Priya Pederson [facility] 06/05/2018 12:46:12 Problem Notes None recorded. Procedures Surgical History Date Name Laterality Status Provider Name and Address Organization Details Recorded Time 06/05/20 18 Cerumen Removal completed Rebecca Soto, TYPE CUTTER [address] , [place], [address], [facility] 06/05/2018 13:28:55 Tonsillectomy/Ad enoidectomy completed Priyajose e Pederson [facility] 06/05/2018 12:47:00 Hysterectomy completed Priyalucian Pederson [facility] 06/05/2018 12:47:06 Imaging Results None recorded. Procedure Notes None recorded. Medical Equipment None Reported. Allergies No known drug allergies Medications Name Sig Start Date Stop Date Status Note LastModified by Organization Details LastModified Time amoxicillin 500 mg capsule 04/13 completed Not Available Not Available Not Available prednisone 10 mg tablet TK 1 T PO QD FOR 5 DAYS 06/05 completed Not Available Not Available Not Available azithromycin 250 mg tablet TAKE 2 TABLETS (500 MG) BY ORAL ROUTE ONCE DAILY FOR 1 DAY THEN 1 TABLET (250 MG) BY ORAL ROUTE ONCE DAILY FOR 4 DAYS 04/13 completed Not Available Not Available Not Available IBU 800 mg tablet TK 1 T PO Q 6 TO 8 HOURS PRF PAIN active Not Available Not Available No t Available hydrocodone 5 mg-acetamino phen 325 mg tablet TK 1 T PO QID IF NEEDED FOR PAIN active Not Available Not Available No t Available fluticasone propionate 50 mcg/actuatio n nasal spray,suspen [place] SHAKE LQ AND U 1 SPR IEN QD active Not Available Not Available No t Available amoxicillin 875 mg-potassium clavulanate 125 mg tablet TK 1 T PO Q 12 H WC FOR 10 DAYS active Not Available Not Available No t Available Low Dose Aspirin 81 mg tablet,delay ed release Take 1 tablet every day by oral route. active Not Available Not Available No t Available escitalopram 5 mg tablet TK 1 T PO QD active Not Available Not Available No t Available Co Q-10 active Not Available Not Avail able Not Available biotin active Not Available Not Availa ble Not Available pravastatin active Not Available Not A vailable Not Available Stool Softener active Not Available Not Available Not Available turmeric active Not Available Not Avai lable Not Available Vitals Date Recorded Body weight Body temperature Oxygen saturation Oxygen saturation in Arterial blood by Pulse oximetry Heart rate Respiratory rate Systolic blood pressure Diastolic blood pressure Systolic blood pressure Diastolic blood pressure Provider Name and Address Organization Details Last Updated DateTime 8 34922.7 g 97.4 [degF] 91 % 91 % 66 /min 18 /min 147 mm[Hg] 92 mm[Hg] 144 mm[Hg] 91 mm[Hg] Priya Pederson [facility] 8 12:53:23 Date Recorded Body weight Body mass index (BMI) Body height Respiratory rate Body temperature Oxygen saturation Oxygen saturation in Arterial blood by Pulse oximetry Heart rate Systolic blood pressure Diastolic blood pressure Provider Name and Address Organization Details Last Updated DateTime 9 32964.6 9 g 30.1 kg/m2 161.29 cm 18 /min 97.6 [degF] 93 % 93 % 53 /min 129 mm[Hg] 81 mm[Hg] Mynor Brand [facility] 9 11:22:12 Date Recorded Body height Body mass index (BMI) Body weight Body temperature Heart rate Respiratory rate Oxygen saturation Oxygen saturation in Arterial blood by Pulse oximetry Systolic blood pressure Diastolic blood pressure Provider Name and Address Organization Details Last Updated DateTime 9 161.29 cm 30.4 kg/m2 46342.5 1 g 98.6 [degF] 54 /min 17 /min 95 % 95 % 138 mm[Hg] 85 mm[Hg] Deja Goldstein [facility] 9 11:19:19 Social History Question Answer Notes LastModified by Organizat ion Details LastModified Time Tobacco Smoking Status Never Smoker Priya Pederson [facility] 06/05/2018 12:46:25 Accident Related Injury No Information not available 01/27/2019 What Is Your Level Of Alcohol Consumption? Occasional Information not available 06/05/2018 What Is Your Level Of Caffeine Consumption? Occasional Information not available 06/05/2018 How Much Tobacco Do You Chew? None Information not available 01/27/2019 Which Illicit Or Recreational Drugs Have You Used? None [email or web address] Information not available 01/27/2019 Do You Or Have You Ever Used E-cigarettes Or Vape? Never Used Electronic Cigarettes [email or web address] Information not available 04/13/2019 Advanced Directive No Information not available 01/27/2019 Power Of Acidizer Water Well No Informa tion not available 01/27/2019 Living Will No Information n ot available 01/27/2019 What Was The Date Of Your Most Recent Tobacco Screening? 01/27/2019 Information not available 03/19/2019 At What Age Did You Start Smoking Tobacco? 0 Information not available 01/27/2019 Do You Or Have You Ever Used Smokeless Tobacco? Never Used Smokeless Tobacco Information not available 04/13/2019 How Much Tobacco Do You Smoke? No Information not available 01/27/2019 How Many Years Have You Smoked Tobacco? 0 Information not available 01/27/2019 Work Related Injury? No Information not available 01/27/2019 Sex: Female Functional Status None recorded. Mental Status None recorded. Family History Relationship Description Onset Age of this Age Resolved Age Notes Father No current problems or disability Mother No current problems or disability Medical History No medical history recorded. Gynecological HistoryNo gynecological history recorded. Obstetrics History GPAL:G 0 P 0 0 0 0 Past Encounters Encounter ID Performer Location Encounter Start Date Encounter Closed Date Diagnosis/Indication [id number] Rebecca Soto CNP [facility] [address] [place] [phone] 06/05/2018 11:57:54 06/05/2018 13:29:28 Impacted cerumen Acute sinusitis [id number] MAGDY VILLANUEVA CNP [facility] [address] [address] 01/27/2019 11:08:18 01/27/2019 12:19:21 Planned telephone contact Acute sinusitis [id number] Rebecca Soto CNP [facility] [address] [place] [address] 04/13/2019 11:03:58 04/13/2019 11:58:07 Planned telephone contact Acute pharyngitis Acute sinusitis Seasonal allergic rhinitis Health Concerns Section Related Observation LastModified by Organization Detai ls LastModified Time None Recorded Concern Status LastModified by Organization Details LastModified Time None Recorded Advance Directives Directive None Recorded Payers Encounter Date Sequence Insurance Name Policy Number Policy Ramos Covered Member ID Ramos Member ID Guarantor Name 04/13/2019 1 [place] [facility] Anthony Olguin [id number] Karley Olguin 01/27/2019 1 [place] [facility] Anthony Olguin [id number] Karley Olguin 06/05/2018 1 [place] [facility] Anthony Olguin [id number] Karley Olguin Notes Date Note Type Note Provider Name and Address Organization Details Recorded Time 06/05/2018 text/html HPI Notes: Unaccompanied 57 yro female c/o sinus pain and pressure, ears clogged, and sinus headache. Symptoms xs 2-3 weeks. OTC degongestants, and asprin Rebecca Soto CNP [address], [place], [address], [facility] 06/05/2018 13:29:25 01/27/2019 text/html HPI Notes: 58-year-old female presents unaccompanied after 3-1/2 months of worsening sinus congestion. Within the last week and a half she is developed frontal sinus pain a worsening cough and fullness in her nose when she lays down. She has chronic allergies and gets sinus infections every couple years. No fevers noted on a thermometer. She takes antihistamines and decongestants regularly MAGDY VILLANUEVA CNP [address], [place], [address], [facility] 01/27/2019 12:14:42 04/13/2019 text/html HPI Notes: 58 yo F unaccompanied; c/o raw, tender, and burning sore throat x 4-5 weeks worsening in pain and radiating up to R ear, R sided facial edema, changes in appetite, difficulty swallowing; Patient states it started out with allergies she has significant seasonal allergies but now she is having a lot of pressure in her sinuses she feels like in the throat pain is rawness from the postnasal drip. States she is been taking allergy medication Sudafed and decongestions and continuing to get worse. no OTC meds [employer]ATE HAND[employer]ER Rebecca Soto, [employer] C[employer] [address], [place], [address], [facility] 04/13/2019 11:39:36 OBGyn Episode No OBEpisode recorded.
--- NOTE | 2023-09-22 19:01 | ED.GENADULT ---
HPI - General Adult General Date Seen: 09/22/23 Chief complaint: Chest Pain Stated complaint: chest pain, possible heart attack Time Seen by Provider: 09/22/23 18:44 Source: patient, RN notes reviewed and old records reviewed Mode of arrival: ambulatory Limitations: no limitations History of Present Illness HPI narrative: Patient is a 62-year-old woman who presents for evaluation of chest pain. She says that it started after lunch, she describes it as both sharp and tight, radiating across her lower chest into her back and into her throat. She thought it was reflux, she does have a history of heartburn takes Prilosec sporadically. She said she tried some Pepto-Bismol which did not help. Pain feels better when she lays down, worse when she sits up. It is not pleuritic. She has felt somewhat nauseated but has not had any vomiting. Denies shortness of breath. No fever cough, no unusual leg pain or swelling. She seems somewhat anxious, she says that she takes care of both of her elderly parents, her dad lives with her and her mother is in a snf in [place] and so she goes back and forth every day taking care of the 2 of them. In addition to the Pepto-Bismol, she took 5 baby aspirin a total of 2 times, this did not change her symptoms either. She is feeling better now than she was earlier, but she says that she decided just to come in, she would like us to ?check her out in 5 minutes and then let her go home, as she needs to get back to her father. She does have a history of hypertension, TIA. No anticoagulation. She does not smoke or drink. No family history of early coronary artery disease or stroke. Related Data Home Medications Medication Instructions Recorded Confirmed albuterol sulfate 90 mcg/actuation inhalation 09/22/23 aerosol inhaler aspirin 81 mg chewable tablet 81 mg PO DAILY 09/22/23 09/22/23 (Jojo Chewable Low Dose Aspirin) coenzyme Q10 100 mg capsule (Co 100 mg PO DAILY 09/22/23 09/22/23 Q-10) cyclosporine 0.05 % eye drops in a drp ophthalmic (eye) 09/22/23 dropperette escitalopram oxalate 5 mg tablet 5 mg PO DAILY 09/22/23 09/22/23 estradiol 0.01% (0.1 mg/gram) vaginal 09/22/23 vaginal cream gabapentin 100 mg capsule PO 09/22/23 latanoprost 0.005 % eye drops 1 drp ophthalmic (eye) QPM 09/22/23 09/22/23 metformin 500 mg tablet,extended 500 mg PO DAILY 09/22/23 09/22/23 release 24 hr montelukast 10 mg tablet 10 mg PO DAILY 09/22/23 09/22/23 pravastatin 20 mg tablet 20 mg PO DAILY 09/22/23 09/22/23 Allergies Allergy/AdvReac Type Severity Reaction Status Date / Time No Known Drug Allergies Allergy Verified 09/22/23 18:29 Review of Systems Status of ROS: Reports: 10 or more systems reviewed and unremarkable except as noted in History and below [facility] Social History Smoking Status: Never smoker Do you use any of these nicotine containing products: None How often do you have a drink containing alcohol: never How often do you have six or more drinks on one occasion: Never AUDIT-C Alcohol total score: 0 Non-prescribed substance use: denies use service: No Exam Narrative: Exam Narrative: Vital signs as noted above. In general, an alert, well-appearing patient. Breathing easily. Head: Normocephalic, atraumatic. Eyes: Pupils are equal reactive. Extraocular movements are full. Conjunctivae are normal. ENT: Mucous membranes are moist. Throat is normal. Neck: Supple without lymphadenopathy. Heart: Regular rate and rhythm. No murmur or rub. Lungs: Clear bilaterally. No increased work of breathing, crackles or wheezes. Abdomen: Soft and nontender. No organomegaly. Extremities: Well perfused. No edema. No calf tenderness. Pulses intact. Neurologic: Patient is alert and oriented to person and place. Speech is fluent. Face is symmetric. Moves all extremities equally. Affect: Anxious. Skin: Warm and dry. Well perfused. Const: Vital Signs, click to edit/add: Vital Signs - 24 hr 09/22/23 18:21 09/22/23 18:43 09/22/23 18:44 Temperature 98.8 F Pulse Rate 65 67 Pulse Rate [Pulse Oximeter] 63 Respiratory Rate 22 Blood Pressure 151/100 H Blood Pressure [Ri ght Upper Arm] 201/95 H Pulse Oximetry 96 93 93 Oxygen Delivery Me thod Room Air 09/22/23 18:45 09/22/23 18:50 09/22/23 19:00 Temperature Pulse Rate 61 65 Pulse Rate [Pulse Oximeter] Respiratory Rate Blood Pressure Blood Pressure [Ri ght Upper Arm] Pulse Oximetry 96 92 94 Oxygen Delivery Me thod 09/22/23 19:02 09/22/23 19:09 09/22/23 19:15 Temperature Pulse Rate 71 65 62 Pulse Rate [Pulse Oximeter] Respiratory Rate Blood Pressure 172/94 H 134/77 Blood Pressure [Ri ght Upper Arm] Pulse Oximetry 92 91 90 Oxygen Delivery Me thod 09/22/23 19:24 09/22/23 19:30 09/22/23 19:32 Temperature Pulse Rate 59 L 61 61 Pulse Rate [Pulse Oximeter] Respiratory Rate Blood Pressure 146/96 H 148/92 H Blood Pressure [Ri ght Upper Arm] Pulse Oximetry 93 90 91 Oxygen Delivery Me thod 09/22/23 19:45 09/22/23 20:00 09/22/23 20:02 Temperature Pulse Rate 61 59 L 67 Pulse Rate [Pulse Oximeter] Respiratory Rate Blood Pressure 144/88 H Blood Pressure [Ri ght Upper Arm] Pulse Oximetry 91 92 90 Oxygen Delivery Me thod 09/22/23 20:03 09/22/23 20:46 09/22/23 21:07 Temperature Pulse Rate 68 57 L Pulse Rate [Pulse Oximeter] Respiratory Rate Blood Pressure 188/90 H Blood Pressure [Ri ght Upper Arm] Pulse Oximetry 93 80 L Oxygen Delivery Me od 09/22/23 21:13 Temperature Pulse Rate Pulse Rate [Pulse Oximeter] Respiratory Rate Blood Pressure Blood Pressure [Ri ght Upper Arm] Pulse Oximetry 95 Oxygen Delivery Me thod Documenting provider has reviewed patient's vital signs: yes Course Course ED Course: Patient's 1st blood pressure was markedly elevated with a systolic of 201, but a repeat blood pressure done shortly thereafter was down to 150/100. Obviously still somewhat hypertensive but improved, I do think she came in fairly rattled about all of this and concerned about her dad who she left behind in a saab. An initial EKG shows a sinus rhythm, ventricular rate of 63, no acute ST segment changes, unremarkable T-waves. Diagnostic considerations include acute coronary syndrome, PE, chest wall pain, pericarditis, gastroesophageal reflux or esophageal spasm, among others. She does not have any abdominal pain or tenderness, my suspicion for abdominal etiology such as cholecystitis, biliary colic, pancreatitis etcetera is low. Dissection remains on the differential at this time. Labs pending including a D-dimer and troponin, chest x-ray. The patient had a single nitroglycerin and pain is resolved. Her initial troponin was 0. Her D-dimer was negative, at 0.42, I think reducing the likelihood of both pulmonary embolism as well as dissection. Resolution of pain with a single nitroglycerin I think also lessens the likelihood of dissection. Her blood pressure was somewhat labile here, at times in the 140s, at times back up in the 180s. She says this is unusual for her although her blood pressure is often elevated when she goes to the doctor. She says she usually can biofeedback her way back down. She has mildly elevated transaminases, which she says is normal for her. Alk-phos and bilirubin are normal. Lipase is normal. Chest x-ray is limited by poor inspiratory effort, slight hemidiaphragm elevation on right, mediastinum looks normal to me, final radiology read was as follows:FINDINGS: The lungs are clear. The heart, mediastinum and pulmonary vessels are of normal size. There is no evidence of pleural disease. Low lung volumes. Slight elevation the right hemidiaphragm. IMPRESSION: Negative chest. She remains comfortable at this time. A 2 hour troponin was also 0. A repeat EKG continued to show a sinus rhythm, slightly bradycardic on the 2nd EKG at 59. No ST segment changes, small voltages in a couple of leads, T-waves relatively flat. However again, 2 negative troponins, pain is resolved. I have discussed with her that workup today is unrevealing although we cannot rule out coronary artery disease as a possible cause for her pain. Therefore I would recommend close outpatient follow-up and stress test. She is comfortable with that plan. Return at any time for recurrent severe symptoms or new concerns. Vital Signs Vital signs: Initial Vital Signs Temperature 98.8 F 09/22/23 18:21 Temperature Source Temporal Artery Scan 09/22/23 18:21 Pulse Rate 63 09/22/23 18:21 Respiratory Rate 22 09/22/23 18:21 Blood Pressure 201/95 H 09/22/23 18:21 Blood Pressure Mean 130 H 09/22/23 18:21 Blood Pressure Position Sitting 09/22/23 18:21 Pulse Oximetry 96 09/22/23 18:21 Oxygen Delivery Method Room Air 09/22/23 18:21 Vital Signs Temperature 98.8 F 09/22/23 18:21 Pulse Rate 63 09/22/23 18:21 Respiratory Rate 22 09/22/23 18:21 Blood Pressure 201/95 H 09/22/23 18:21 Pulse Oximetry 96 09/22/23 18:21 Oxygen Delivery Method Room Air 09/22/23 18:21 Temperature 98.8 F 09/22/23 18:21 Pulse Rate 57 L 09/22/23 20:46 Respiratory Rate 22 09/22/23 18:21 Blood Pressure 188/90 H 09/22/23 21:07 Pulse Oximetry 95 09/22/23 21:13 Oxygen Delivery Method Room Air 09/22/23 18:21 Medications Administered Medications: Discontinued Medications Generic Name Dose Route Start Last Admin Trade Name Alexq PRN Reason Stop Dose Admin Nitroglycerin 0.4 mg 09/22/23 18:50 09/22/23 18:59 Nitroglycerin 0.4 Mg Tab.Subl SUBLINGUAL 09/22/23 18:51 0.4 mg ONCE ONE Administration Medical Decision Making Lab Data Labs: Lab Results 09/22/23 09/22/23 Range/Units 18:51 19:10 WBC 7.92 (4.50-11.00) K/uL RBC 4.08 (4.00-5.20) m/uL Hgb 13.3 (12.0-16.0) gm/dL Hct 40.2 (33.0-51.0) % MCV 99 (80-100) fL MCH 33 (26-34) pg MCHC 33 (32-36) gm/dL RDW Coeff of Cole 12.1 (11.5-15.5) % Plt Count 288 (140-440) K/uL Neut % (Auto) 52.6 (42.0-72.0) % Lymph % (Auto) 37.1 (20-44) % Williamson % (Auto) 5.9 (0.0-11.0) % Eos % (Auto) 3.3 (0.0-7.0) % Baso % (Auto) 0.8 (0.0-3.0) % Neut # (Auto) 4.17 (1.7-7.0) K/uL Lymph # (Auto) 2.94 H (0.90-2.90) K/uL Williamson # (Auto) 0.50 (0.00-0.90) K/UL Eos # (Auto) 0.26 (0.00-0.50) K/uL Baso # (Auto) 0.06 (0.00-0.30) K/uL Abs Immat Gran (auto) 0.02 (0.00-0.30) K/uL Imm/Tot Granulo (auto) 0.3 % D-Dimer Quant (PE/DVT) 0.42 (0.00-0.50) ug/ml Sodium 138 (135-149) mmol/L Potassium 4.1 (3.6-5.1) mmol/L Chloride 104 (96-114) mmol/L Carbon Dioxide 23 (20-32) mmol/L Anion Gap 11 (7-15) mEq/L BUN 13 (7-30) mg/dL Creatinine 1.0 (0.5-1.5) mg/dL Estimated Creat Clear 47.63 Estimated GFR 63 ml/min Glucose 137 H (60-115) mg/dL Calcium 9.4 (8.4-10.6) mg/dL Total Bilirubin 0.4 (0.1-1.5) mg/dL Direct Bilirubin 0.0 (0.0-0.5) mg/dL AST 69 H (12-35) U/L ALT 75 H (4-35) U/L Alkaline Phosphatase 71 (40-150) U/L C-Reactive Protein 0.8 (0.5-1.0) mg/dL Total Protein 7.6 (6.0-8.3) g/dL Albumin 4.4 (3.3-5.0) g/dL Lipase 243 (23-300) U/L POC Troponin I 0.00 L (0.01-0.04) ng/ml Discharge Plan Discharge Clinical Impression: Chest pain Patient Disposition: Home, Self-Care Condition: Improved Instructions: Chest Pain (ED) Additional Instructions: Your workup today is reassuring, though as we discussed while we are able to rule out the presence of a heart attack we cannot rule out the presence of coronary artery disease and I would recommend that you follow-up this week in clinic and have a stress test done as an outpatient. Your blood pressure has been intermittently elevated here, this needs to be followed up and may need treatment if persistent. Return to the emergency department any time for recurrent or severe symptoms. Our clinic number is [phone] that if you would like to schedule with 1 of our doctors here. Prescriptions: No Action metformin 500 mg tablet extended release 24 hr 500 mg PO DAILY aspirin [Jojo Chewable Aspirin] 81 mg tablet,chewable 81 mg PO DAILY coenzyme Q10 [Co Q-10] 100 mg capsule 100 mg PO DAILY montelukast 10 mg tablet 10 mg PO DAILY gabapentin 100 mg capsule PO estradiol 0.01 % (0.1 mg/gram) cream vaginal albuterol sulfate 90 mcg/actuation HFA aerosol inhaler inhalation cyclosporine 0.05 % dropperette ophthalmic (eye) escitalopram oxalate 5 mg tablet 5 mg PO DAILY latanoprost 0.005 % drops 1 drp ophthalmic (eye) QPM pravastatin 20 mg tablet 20 mg PO DAILY Follow Up/Referrals: Provider,Not a Local [Primary Care Provider] - Stand Alone Forms: [employer] Info Instructions
[2023-09-22 19:18] LABS: Basophils Absolute Auto 0.06 K/uL (0.00-0.30); Basophils Percent Auto 0.8 % (0.0-3.0); Eosinophils Absolute Auto 0.26 K/uL (0.00-0.50); Eosinophils Percent Auto 3.3 % (0.0-7.0); Hematocrit 40.2 % (33.0-51.0); Hemoglobin* 13.3 gm/dL (12.0-16.0); Immature Granulocytes Abs Auto 0.02 K/uL (0.00-0.30); Immature Granulocytes Pct Auto 0.3 %; Lymphocytes Absolute Auto 2.94 K/uL (0.90-2.90); Lymphocytes Percent Auto 37.1 % (20-44); Mean Corpuscular HGB Conc 33 gm/dL (32-36); Mean Corpuscular Hemoglobin 33 pg (26-34); Mean Corpuscular Volume 99 fL (80-100); Monocytes Percent Auto 5.9 % (0.0-11.0); Neutrophils Absolute Auto 4.17 K/uL (1.7-7.0); Neutrophils Percent Auto 52.6 % (42.0-72.0); Platelet Count* 288 K/uL (140-440); RDW Coefficient of Variation % 12.1 % (11.5-15.5); Red Blood Count 4.08 m/uL (4.00-5.20); White Blood Count* 7.92 K/uL (4.50-11.00)
[2023-09-22 19:21] LABS: Slide Review Reflex No
[2023-09-22 19:35] LABS: Albumin* 4.4 g/dL (3.3-5.0); Chloride* 104 mmol/L (96-114); Sodium* 138 mmol/L (135-149)
[2023-09-22 19:36] LABS: Potassium* 4.1 mmol/L (3.6-5.1)
[2023-09-22 19:38] LABS: Anion Gap 11 mEq/L (7-15); Carbon Dioxide* 23 mmol/L (20-32); D Dimer Quantitative* 0.42 ug/ml (0.00-0.50); Est. Creatinine Clearance* 47.63; Estimated Glomerular Filt Rate 63 ml/min
[2023-09-22 19:39] LABS: Alanine Aminotransferase* 75 U/L (4-35); Alkaline Phosphatase* 71 U/L (40-150); Aspartate Amino Transferase* 69 U/L (12-35); Bilirubin Total* 0.4 mg/dL (0.1-1.5); Blood Urea Nitrogen* 13 mg/dL (7-30); Calcium* 9.4 mg/dL (8.4-10.6); Glucose* 137 mg/dL (60-115); Lipase* 243 U/L (23-300); Total Protein* 7.6 g/dL (6.0-8.3)
[2023-09-22 19:41] LABS: C Reactive Protein* 0.8 mg/dL (0.5-1.0)
--- NOTE | 2023-09-22 19:56 | ED.NURSE ---
pt report given to oncuri RN
== END 2023-09-22 21:33 | disposition home or self-care (01) ==
PROVIDERS: Emergency Provider Emergency Medicine
DX: R07.9 Chest pain, unspecified (principal)
CPT/HCPCS: 36415; 71045; 80048; 80076; 83690; 84484; 85025; 85379; 86140; 93005; 94761; 99284; 99285; A9270

== ENCOUNTER 2024-07-15 09:25 | Outpatient (CLI) | payer BC, SELFPAY ==
--- OUTSIDE RECORDS SUMMARY | 2024-07-15 09:29 | XMS_ITS | Data Portability ---
Author Organization [facility] r[facility] [place], TEST SITE Address [address] [place] [phone] Assessment Encounter Date Assessment Date Assessment LastModified [...] symptoms do not improve within 5 days. [email or web address] Not available 01/27/2019 12:13:37 Plan of Treatment Reminders Order Date Submit Date Provider Last Modified By Organization Details Last Modified Time Details Appointments None recorded. Lab rapid strep group A, throat 2018 019 In-House Results, For Internal Use Only, Do Not Delete/merge, [id number] 9 11:34:23 Referral None recorded. Procedures cerumen removal (PROC) 2017 018 [email or web address] Not available 8 14:43:02 Surgeries None recorded. Imaging None recorded. Medication Orders Augmentin 875 mg-125 mg tablet 2017 018 [email or web address] [id number], [address] [facility], [place], [place], [phone], 9 11:14:59 azithromyc in 250 mg tablet 2018 019 [facility] #[id number], [address] [place], [place], [phone], 9 11:09:55 fluticason e propionate 50 mcg/actuat ion nasal spray,susp ension 2018 019 INTERFACE [facility] #53191, [address], [place], [phone], 9 12:10:25 amoxicilli n 875 mg-potassi um clavulanat e 125 mg tablet 2018 019 INTERFACE [facility] #54992, [address] [place], [place], [phone], 9 11:35:02 fluticason e propionate 50 mcg/actuat ion nasal spray,susp ension 2018 019 INTERFACE [facility] #55200, [address] [place], [place], [phone], 9 11:39:41 Patient TargetsNo targets recorded. Patient Instructions Encounter Date Encounter Id Patient Instructions Last Modified By Organization Details Last Modified Time 06/05/2018 [id number] patient follow up phone call* marek Not available 06/11/2018 12:15:21 [email or web address] blockage: care instructions Not available 06/05/2018 13:27:29 Acute Sinusitis: Care Instructions Not available 06/05/2018 13:27:29 Patient instructed to [...] breathing or wheezing. Not available 06/05/2018 13:27:46 01/27/2019 [id number] patient follow up phone call* [email or web address] Not available 01/27/2019 22:30:48 04/13/2019 [id number] patient follow up phone call* [email or web address] Not available 04/13/2019 22:05:04 Acute Sinusitis: Care Instructions Not available 04/13/2019 11:39:32 saline nasal washes: [...] the sinuses, I recommend the patient take [id number] guaifenesin per package direction for the congestion. [...] in 3-5 days. Not available 04/13/2019 11:38:47 Reason for Referral None Reported. Results Created Date Observation Date Name Description Value Unit Range Abnormal Flag Note LastModifiedBy Organization Detail LastModifiedTime 04/13/2019 rapid strep group A, throa t Strep negati ve Not Available In-House Results For Internal Use Only, Do Not Delete/merge, [id number] 04/13/2019 11:20:07 Result Notes None recorded. Problems Name Problem SNOMED Code Status Onset Date Resolution Date Notes Provider Name and Address Organization Details Recorded Time Cerebrovascula r accident [id number] Active 2017 Priya Pederson [facility] 8 12:46:12 Problem Notes None recorded. Procedures Surgical History Date Name Laterality Status Provider Name and Address Organization Details Recorded Time 06/05/20 18 Cerumen Removal completed Rebecca Soto, PORTER LUGGAGE [address], [place], [address], [facility] 06/05/2018 13:28:55 Tonsillectomy/Ad enoidectomy completed Priya Pederson [email or web address] 06/05/2018 12:47:00 Hysterectomy completed Priyajose e Pederson [facility] [email or web address] 06/05/2018 12:47:06 Imaging Results None recorded. Procedure [...] Address Organization Details Last Updated DateTime 8 42150.7 g 97.4 [degF] 91 % 91 % 66 /min 18 /min 147 mm[Hg] 92 mm[Hg] 144 mm[Hg] 91 mm[Hg] Priya Pederson [facility] [[email or web address] 8 12:53:23 Date Recorded Body weight Body mass index (BMI) Body height Respiratory rate Body temperature Oxygen saturation Oxygen saturation in Arterial blood by Pulse oximetry Heart rate Systolic blood pressure Diastolic blood pressure Provider Name and Address Organization Details Last Updated DateTime 9 96840.6 9 g 30.1 kg/m2 161.29 cm 18 /min 97.6 [degF] 93 % 93 % 53 /min 129 mm[Hg] 81 mm[Hg] Mynor Brand [facility] [[email or web address] 9 11:22:12 Date Recorded Body height Body mass index (BMI) Body weight Body temperature Heart rate Respiratory rate Oxygen saturation Oxygen saturation in Arterial blood by Pulse oximetry Systolic blood pressure Diastolic blood pressure Provider Name and Address Organization Details Last Updated DateTime 9 161.29 cm 30.4 kg/m2 51269.5 1 g 98.6 [degF] 54 /min 17 /min 95 % 95 % 138 mm[Hg] 85 mm[Hg] Deja Goldstein [facility] [[email or web address]] 9 11:19:19 Social History Question Answer Notes LastModified by Organizat ion Details LastModified Time Tobacco Smoking Status Never Smoker Priya Pederson [facility] 06/05/2018 12:46:25 Accident Related Injury No [email or web address] Information not available 01/27/2019 What Is Your Level Of Alcohol Consumption? Occasional Information not available 06/05/2018 What Is Your Level Of Caffeine Consumption? Occasional Information not available 06/05/2018 How Much Tobacco Do You Chew? None Information not available 01/27/2019 Which Illicit Or Recreational Drugs Have You Used? None Information not available 01/27/2019 Do You Or Have You Ever Used E-cigarettes Or Vape? Never Used Electronic Cigarettes [email or web address] Information not available 04/13/2019 Advanced Directive No Information not available 01/27/2019 Power Of Dietary Aide No Informa tion not available 01/27/2019 Living Will No Information n ot available 01/27/2019 What Was The Date Of Your Most Recent Tobacco Screening? 01/27/2019 Information not available 03/19/2019 At What Age Did You Start Smoking Tobacco? 0 [email or web address] Information not available 01/27/2019 Do You Or Have You Ever Used Smokeless Tobacco? Never Used Smokeless Tobacco [email or web address] Information not available 04/13/2019 How Much Tobacco Do You Smoke? No [email or web address] Information not available 01/27/2019 How Many Years Have You Smoked Tobacco? 0 Information not available 01/27/2019 Work Related Injury? No Information not available 01/27/2019 Sex: Unknown Functional Status None recorded. Mental Status None recorded. Family History Relationship Description Onset Age of this Age Resolved Age Notes LastModified by Organization Details LastModified Time Father No current problems or disability [email or web address] Not available 06/2018 12:46:18 Mother No current problems or disability [email or web address] Not available 06/2018 12:46:18 Medical History No medical history recorded. Gynecological HistoryNo gynecological history recorded. Obstetrics History GPAL:G 0 P 0 0 0 0 Past Encounters Encounter ID Performer Location Encounter Start Date Encounter Closed Date Diagnosis/Indication Diagnosis SNOMED-CT Code Diagnosis ICD10 Code [id number] Rebecca Soto CNP [facility] [address] [place] [address] 06/05/2018 11:57:54 06/05/2018 13:29:28 Impacted cerumen 18491371 H61.23 Acute sinusitis 89789839 J01.90 [id number] MAGDY VILLANUEVA, NANCY [facility] [address] [place] [address] 01/27/2019 11:08:18 01/27/2019 12:19:21 Planned telephone contact [id number] Z76.89 Acute sinusitis 59490217 J01.90 [id number] Rebecca Soto CNP [facility] [address] [place] [address] 04/13/2019 11:03:58 04/13/2019 11:58:07 Planned telephone contact [id number] Z76.89 Acute pharyngitis 748445 003 J02.9 Acute sinusitis 37634442 J01.90 Seasonal a llergic rhinitis 502399043 J30.2 Health Concerns Section Related Observation LastModified by Organization Detai ls LastModified Time None Recorded Concern Status LastModified by Organization Details LastModified Time None Recorded Advance Directives Directive None Recorded Payers Encounter Date Sequence Insurance Name Policy Number Policy Ramos Covered Member ID Ramos Member ID Guarantor Name 06/05/2018 1 [place] [facility] Anthony Olguin [id number] Karley Olguin 01/27/2019 1 [place] [facility] Anthony Olguin [id number] Karley Olguin 04/13/2019 1 [place] [facility] Anthony Olguin [id number] Karley Olguin Notes Date Note Type Note Provider Name and Address Organization Details Recorded Time 06/05/2018 text/html Unaccompanied 57 yro female c/o sinus pain and pressure, ears clogged, and sinus headache. Symptoms xs 2-3 weeks. OTC degongestants, and asptadeo Soto, PORTER LUGGAGE [address], [place], [address], [facility] 06/05/2018 13:29:25 01/27/2019 text/html 58-year-old fema tk presents unaccompanied after 3-1/2 months of worsening sinus congestion. Within the last week and a half she is developed frontal sinus pain a worsening cough and fullness in her nose when she lays down. She has chronic allergies and gets sinus infections every couple years. No fevers noted on a thermometer. She takes antihistamines and decongestants regularly MAGDY VILLANUEVA, NANCY [address], [place], [address], [facility] 01/27/2019 12:14:42 04/13/2019 text/html 58 yo F unaccompanied; c/o raw, tender, [...] continuing to get worse. no OTC meds [employer] Rebecca Soto, NANCY [address], [place], [address], [facility] 04/13/2019 11:39:36 OBGyn Episode No OBEpisode recorded.
--- OUTSIDE RECORDS SUMMARY | 2024-07-15 09:29 | XMS_ITS | Referral Summary ---
Author Organization [facility] Address [address] [place] [address] Care Team Providers Care Urgent Care Nurse Practitioner Name Role Phone Izzy Quinonez Primary Care Provider + [phone] Allergies Active Allergy Reactions Criticality Noted Date Comments Mold Extracts Other (See Comments) Medium 09/05/2015 Medications Medication Sig Dispensed Refills Start Date End Date Status valacyclovir (VALTREX) 1000 MG tablet TAKE TWO TABLETS EVERY 12 HOURS BY MOUTH - NEEDED FOR ONE DAY. 12 tablet 09/30/2022 Active aspirin 325 MG tablet Take 1 tablet (325 mg total) by mouth daily. Active biotin 1 mg Capsule Take 1 mg by mouth. Active latanoprost (XALATAN) 0.005 % ophthalmic solution Place 1 drop into both eyes nightly. 08/10/2022 Active omeprazole (PRILOSEC OTC) 20 MG EC tablet Take 1 tablet (20 mg total) by mouth daily. Active ibuprofen (IBU) 800 MG tablet Take 1 tablet (800 mg total) by mouth every 8 (eight) hours as needed. Active coenzyme Q10 200 mg capsule Take 1 capsule by mouth daily. Active TYRVAYA 0.03 mg/spray spray, metered, non-aerosol Place 1 spray into the nose 2 (two) times daily. 07/15/2023 Active nitroglycerin (NITROSTAT) 0.[address] 1 tablet (0.4 mg total) under the tongue every 2 (two) hours as needed. 11/01/2023 Active DOCOSAHEXAENOIC ACID ORAL Take by mouth. Active docusate sodium (COLACE) 100 MG capsule Take 1 capsule every day by oral route. Active escitalopram (LEXAPRO) 5 MG tabletIndications:An xiety Take 1 tablet (5 mg total) by mouth daily. 90 tablet 4 02/20/2024 Active gabapentin (NEURONTIN) 100 MG capsuleIndications:S ciatica of left side Take 1 capsule (100 mg total) by mouth 2 (two) times a day as needed (sciatica). 180 capsule 02/20/2024 Active metFORMIN XR (GLUCOPHAGE-XR) 500 MG 24 hr tabletIndications:Ty pe 2 diabetes mellitus with hyperglycemia, without long-term current use of insulin (HCC) Take 1 tablet (500 mg total) by mouth daily. 90 tablet 4 02/20/2024 Active montelukast (SINGULAIR) 10 MG tabletIndications:Al lergic rhinitis due to other allergic trigger, unspecified seasonality Take 1 tablet (10 mg total) by mouth every evening. 90 tablet 4 02/20/2024 Active naratriptan (AMERGE) 2.5 MG tabletIndications:Mi graine without aura and without status migrainosus, not intractable Take 1 tablet (2.5 mg total) by mouth as needed for Migraine. Take 1 tablet at the onset of migraine. May repeat dose in two hours if needed. No more than 2 tablets in 24 hours. 10 tablet 1 02/20/2024 Active pravastatin (PRAVACHOL) 20 MG tabletIndications:Mi xed hyperlipidemia Take 1 tablet (20 mg total) by mouth 3 (three) times a week. 45 tablet 4 02/21/2024 Active albuterol (VENTOLIN HFA) 90 mcg/actuation inhalerIndications:A llergic rhinitis due to other allergic trigger, unspecified seasonality Inhale 2 puffs every 4 (four) hours as needed for Wheezing. 18 g 2 02/20/2024 Active estradioL (ESTRACE) 0.01 % (0.1 mg/gram) vaginal creamIndications:Atr ophic vaginitis Place 2 g into the vagina twice a week on Saturday and . 42.5 g 11 02/20/2024 Active ciclopirox (PENLAC) 8 % solutionIndications: Toenail fungus Apply to affected toenails and adjacent skin once daily in combination with weekly nail trimming and periodic nail debridement. Remove with alcohol every 7 days. Continue therapy until nail clearance (maximum duration: 48 weeks). 6.6 mL 2 02/20/2024 Active fluconazole (DIFLUCAN) 150 MG tabletIndications:Ac yoli vaginitis Take 1 tab today. 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 Type 2 diabetes mellitus wit hout complication, without long-term current use of insulin 01/01/2023 Anxiety 01/01/2023 Glaucoma (increased eye pressure) 06/14/2022 08/15/2023 Diabetes mellitus 07/13/2020 08/15/2023 Skin changes due to chronic exposure to nonionizing radiation 05/03/2020 Senile hyperkeratosis 05/03/2020 Inflamed seborrheic keratosis 05/03/2020 Digital mucous cyst of left hand 05/03/2020 Allergic rhinitis 01/12/2020 Overview: dust, molds Cerebrovascular accident 06/05/2018 Menopausal flushing 12/11/2017 Atrophic vaginitis 12/11/2017 Hyperlipidemia 02/13/2017 Sleep disorder 02/13/2017 Osteoarthritis 02/13/2017 Impaired fasting glucose 02/13/2017 Myopia with presbyopia 08/28/2012 Family history of malignant neoplasm of breast 1 09/04/2007 Migraine 10/25/2005 Overview: Danna evans follows in the past;;stable, use Relpax 1/2 of a 20mg tab Gastroesophageal reflux disease 12/21/2002 Overview: Ranitidine chronically (prior protonix cause dgas) Family history of diabetes mellitus (DM) 003 Unspecified hearing loss 01/20/2002 Overview: On left replacing diagnoses that were inactivated after the 05/26 regulatory import Resolved Problems Problem Noted Date Diagnosed Date Resolved Date 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 Acquired absence of organ, genital organs 07/05/2008 01/01/2023 Immunizations Name Administration Dates Next Due Influenza Intradermal 06/04/2013 Influenza Vaccine, Unspecified Formulation 06/04 CardioMEMS (J&J) COVID-19 Recombinant Vaccine (PF) 0.5 mL 12/29/2020 MMR 01/13/2019 Moderna COVID-19 Vaccine (12+ Yrs) 100 mcg/0.5mL 01/23/2022 Td(Adult), 2Lf, Pres Free, Adsorbed, Generic Tdap (Adacel, Boostrix) 01/06/2019 Zoster Vaccine Recombinant, Adjuvanted IM (Shing stephenie) 01/12/2020 Zoster Vaccine, Live SQ (Zostavax) 09/30/2014 Social History Tobacco Use Types Packs/Day Years Used Date Smoking Tobacco: Never Smokeless Tobacco: Never Alcohol Use Standard Drinks/Week Comments Yes 0 (1 standard drink = 0.6 oz pur e alcohol) 4 times per year. Sex and Gender Information Value Date Recorded Sex Assigned at Female 02/20/2024 9:06 AM CDT Gender Identity Female 02/20/2024 9:06 AM CDT Sexual Orientation Straight 02/20/2024 9: 06 AM CDT Last Filed Vital Signs Vital Sign Reading Time Taken Comments Blood Pressure 130/90 02/20/2024 9:05 AM CDT Pulse 61 02/20/2024 9:05 AM CDT Temperature 36.6 C (97.8 F) 02/20/2024 9:05 AM CDT Respiratory Rate 16 02/20/2024 9:05 AM CDT Oxygen Saturation 96% 02/20/2024 9:05 AM CDT Inhaled Oxygen Concentration - - Weight 81.6 kg (180 lb) 03/17/2024 11:46 AM CDT Height 161.3 cm (5' 3.5) 03/17/2024 11:46 AM CD T Body Mass Index 31.39 03/17/2024 11:46 AM CDT Plan of Treatment Upcoming Encounters Date Type Department Care Team (Late st Contact Info) Description 08/05/2024 1:20 PM 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 [address] [facility], [address] [place] [address] Izzy Quinonez, SUMAN [address] [place] [phone] 01/08/2025 8:20 AM CDT Lab Visit [facility] at [address] [phone] 01/12/2025 8:00 AM CDT Office Visit [facility] at [address] [phone] Izzy Quinonez, SUMAN [address] [place] [phone] Procedures Procedure Name Priority Date/Time Associated Diagnosis Comments MAMMO SCREEN BILATERAL WITH DAVID Routine 01/10/2024 7:30 AM CDT Breast cancer screening by mammogram COLOGUARD Routine 01/22/2023 5:13 PM CDT Colon cancer screening MICROALBUMIN, URINE, RANDOM Routine 12/31/2022 7:19 AM CDT Type 2 diabetes mellitus with other specified complication, unspecified whether halfway insulin use (HCC) LIPID PANEL Routine 12/31/2022 7:19 AM CDT Hyperlipidemia, unspecified hyperlipidemia type METABOLIC PANEL, COMPREHENSIVE (CMP) Routine 12/31/2022 7:19 AM CDT Hyperlipidemia, unspecified hyperlipidemia type HEMOGLOBIN A1C Routine 12/31/2022 7:19 AM CDT Type 2 diabetes mellitus with other specified complication, unspecified whether termite control service representative insulin use (HCC) from Last 3 Months or Most Recently Relevant to Health Maintenance Results * Mammo Screen Bilateral with David (01/10/2024 7:30 AM CDT) Anatomical Region Laterality Modality Breast Bilateral Mammography 03/02/2024 1:52 PM CDT Narrative 04/02/2024 1:30 PM CDT DIGITAL BILATERAL SCREENING MAMMOGRAM WITH CAD HISTORY: Routine screening. COMPARISON: Prior exams dating back to 2018 TECHNIQUE: Direct digital imaging was utilized for this exam. Bilateral CC and MLO views. FINDINGS: The breast parenchyma appears normal. No dominant mass or suspicious calcifications have developed. No architectural distortion. Breast Density: Category B: There are scattered areas of dense glandular and fibrous tissue IMPRESSION: No suspicious findings. BIRADS 1: NEGATIVE; Routine mammogram in 1 year is recommended. Direct digital imaging was used to acquire this exam. Computer aided detection (CAD) was used for the interpretation of this study. Neal Ellis MD [facility] 1960 Procedure Note Neal Ellis MD - 04/02/2024 DIGITAL BILATERAL SCREENING MAMMOGRAM WITH CAD HISTORY: Routine screening. COMPARISON: Prior exams dating back to 2018 TECHNIQUE: Direct digital imaging was utilized for this exam. Bilateral CCand MLO views. FINDINGS: The breast parenchyma appears normal. No dominant mass orsuspicious calcifications have developed. No architectural distortion. Breast Density: Category B: There are scattered areas of dense glandularand fibrous tissue IMPRESSION: No suspicious findings. BIRADS 1: NEGATIVE; Routine mammogram in 1 year is recommended. Direct digital imaging was used to acquire this exam. Computer aideddetection (CAD) was used for the interpretation of this study. Neal Ellis MD [facility] 1960 Izzy WILL IM MAMMOGRAPHY ORDE RABPHILLIP * Cologuard (01/22/2023 5:13 PM CDT) Cologuard Negative Negative [facility] Comment: NEGATIVE TEST RESULT. A negative Cologuard result indicates a low likelihood that a colorectal cancer (CRC) or advanced adenoma (adenomatous polyps with more advanced pre-malignant features) is present. The chance that a person with a negative Cologuard test has a colorectal cancer is less than 1 in 1500 (negative predictive value >99.9%) or has an advanced adenoma is less than 5.3% (negative predictive value 94.7%). These data are based on a prospective cross-sectional study of 10,000 individuals at average risk for colorectal cancer who were screened with both Cologuard and colonoscopy. (Enrike Chiang. et al, N Engl J Med 2014;370(14):5438-0529) The normal value (reference range) for this assay is negative. COLOGUARD RE-SCREENING RECOMMENDATION: Periodic colorectal cancer screening is an important part of preventive healthcare for asymptomatic individuals at average risk for colorectal cancer. Following a negative Cologuard result, the [place] Cancer Society and U.S. Multi-Society Task Force screening guidelines recommend a Cologuard re-screening interval of 3 years. References: [place] Cancer Society Guideline for Colorectal Cancer Screening: https://www.cancer.org/cancer/lmeud-mmqgal-wazdcm/vvliqrqef-qmplcmgzp-ixrubsv/ac s-rec ommendations.html.; Jadon ARREDONDO, Donya CUMMINS, Chanda VarelaK, Colorectal Cancer Screening: Recommendations for Physicians and Patients from the U.S. Multi-Society Task Force on Colorectal Cancer Screening , Am J Gastroenterology 2017; 112:0680-2695. TEST DESCRIPTION: Composite algorithmic analysis of stool DNA-biomarkers with hemoglobin immunoassay. Quantitative values of individual biomarkers are not reportable and are not associated with individual biomarker result reference ranges. Cologuard is intended for colorectal cancer screening of adults of either sex, 45 years or older, who are at average-risk for colorectal cancer (CRC). Cologuard has been approved for use by the U.S. FDA. The performance of Cologuard was established in a cross sectional study of average-risk adults aged 50-84. Cologuard performance in patients ages 45 to 49 years was estimated by sub-group analysis of near-age groups. Colonoscopies performed for a positive result may find as the most clinically significant lesion: colorectal cancer [4.0%], advanced adenoma (including sessile serrated polyps greater than or equal to 1cm diameter) [20%] or non- advanced adenoma [31%]; or no colorectal neoplasia [45%]. These estimates are derived from a prospective cross-sectional screening study of 10,000 individuals at average risk for colorectal cancer who were screened with both Cologuard and colonoscopy. (Enrike Dunaway al, N Engl J Med 2014;370(14):4807-4105.) Cologuard may produce a false negative or false positive result (no colorectal cancer or precancerous polyp present at colonoscopy follow up). A negative Cologuard test result does not guarantee the absence of CRC or advanced adenoma (pre-cancer). The current Cologuard screening interval is every 3 years. ([place] Cancer Society and U.S. Multi-Society Task Force). Cologuard performance data in a 10,000 patient pivotal study using colonoscopy as the reference method can be accessed at the following location: www.Performance [facility]/results. Additional description of the Cologuard test process, warnings and precautions can be found at www.NetLexogauctionPALrd.com. Stool STOOL SPECIMEN / Unknown 01/22/2023 5:13 PM CDT 01/22/2023 5:23 PM CDT Izzy WILL BODY FLUIDS AND STOO LS ORDERABLES [facility] Casandra [facility] [place] [address] * Microalbumin, Urine, Random (12/31/2022 7:19 AM CDT) Microalbumin, Ur <5.0 0.0 - 20.0 ug/mL CHEMISTRY ANALYSIS 12/31/2022 11:15 AM CDT [facility] Creatinine Urine 108.20 mg/dL CHEMISTRY ANALYSIS 12/31/2022 11:15 AM CDT [facility] Microalbumin/C reat Ratio, Ur CHEMISTRY ANALYSIS 12/31/2022 11:15 AM CDT [facility] Comment:One or both of the m easured analytes is outside of detectable levels, therefore the ratio cannot be calculated. Urine URINE SPECIMEN OBTAINED BY CLEAN CATCH PROCEDURE / Unknown Collection / Unknown 12/31/2022 7:19 AM CDT 12/31/2022 7:19 AM CDT Izzy WILL URINE ORDERABLES Performing Organization Address [facility] Co de Phone Number [facility] [address] [phone] * Hemoglobin A1c (12/31/2022 7:19 AM CDT) Hemoglobin A1C 6.8 % CHEMISTRY ANALYSIS 12/31/2022 10:40 AM CDT [facility] Comment: Hemoglobin A1C (%) Recommendations*: For Diagnosing Diabetes: 5.7 - 6.4% Increased risk for developing diabetes > 6.4% Diagnostic of diabetes Therapeutic goals for glycemic control: < 7.0% Diabetic glycemic control > 8.0% Action recommended *[place] Diabetes Association (ADA) Guidelines - 2010 Est. Average Glucose 148 mg/dL CHEMISTRY ANALYSIS 12/31/2022 10:40 AM CDT [facility] Comment:The results of a rec ent study published in Diabetes Care,Volume 31,Number 02 April 2008 supports the notion of a close relationship between A1C values and estimated average blood glucose (eAvg Glu)levels in type 1 and type 2 diabetes. Blood VENOUS BLOOD SPECIMEN / Unknown Venipuncture / Unknown 12/31/2022 7:19 AM CDT 12/31/2022 7:19 AM CDT Izzy WILL LAB BLOOD ORDERABLES Performing Organization Address [facility]/ZIP Co de Phone Number [facility] [address] [phone] * (ABNORMAL) Lipid Panel (12/31/2022 7:19 AM CDT) Cholesterol 187 0 - 199 mg/dL CHEMISTRY ANALYSIS 12/31/2022 10:48 AM CDT [facility] Triglycerides 161(H) 0 - 149 mg/dL CHEMISTRY ANALYSIS 12/31/2022 10:48 AM CDT [facility] HDL 38(L) 41 - 999 mg/dL CHEMISTRY ANALYSIS 12/31/2022 10:48 AM CDT [facility] LDL Cholesterol 117 0 - 129 mg/dL CHEMISTRY ANALYSIS 12/31/2022 10:48 AM CDT [facility] Chol/HDL Ratio 4.9 0 - 6 CHEMISTRY ANALYSIS 12/31/2022 10:48 AM T [facility] Erq-WNL-Yvgm 149(H) 0 - 129 mg/dL CHEMISTRY ANALYSIS 12/31/2022 10:48 AM T [facility] Comment: NCEP GUIDELINES - (2001) Test Desirable Borderline Higher Risk Triglyceride <150 150 - 199 200 - 499 Cholesterol <200 200 - 239 >239 HDL-Chol >60 <40 LDL-Chol(Calc) <100* 130 - 160 >160 *100-129 is considered low risk Chol/HDL Ratio A ratio of >6.0 has been associated with a greater risk of Coronary Heart Disease (Arch. Calciminer. Med. 161; (2001): 2332-1726) Non-HDL Chol When the Triglyceride level is greater than 199 mg/dL, Non-HDL Cholesterol is a better indicator of coronary heart disease risk than a calculated LDL Cholesterol Patient fasting? Fasting CHEMISTRY ANALYSIS 12/31/2022 10:48 AM CDT [facility] Blood VENOUS BLOOD SPECIMEN / Unknown Venipuncture / Unknown 12/31/2022 7:19 AM CDT 12/31/2022 7:19 AM CDT Izzy WILL LAB BLOOD ORDERABLES [facility] [address] [place] [id number], [facility] [phone] * (ABNORMAL) Metabolic Panel, Comprehensive (CMP) (12/31/2022 7:19 AM CDT) [facility] Sodium 136 136 - 145 mmol/L CHEMISTRY ANALYSIS 12/31/2022 10:48 AM CDT [facility] Potassium 4.4 3.5 - 5.1 mmol/L CHEMISTRY ANALYSIS 12/31/2022 10:48 AM CDT [facility] Chloride 102 100 - 110 mmol/L CHEMISTRY ANALYSIS 12/31/2022 10:48 AM CDT [facility] Total CO2 28 22 - 29 mmol/L CHEMISTRY ANALYSIS 12/31/2022 10:48 AM CDT [facility] Glucose 155(H) 74 - 99 mg/dL CHEMISTRY ANALYSIS 12/31/2022 10:48 AM CDT [facility] BUN 17 7 - 26 mg/dL CHEMISTRY ANALYSIS 12/31/2022 10:48 AM CDT [facility] Creatinine 0.94 0.55 - 1.11 mg/dL CHEMISTRY ANALYSIS 12/31/2022 10:48 AM CDT [facility] Calcium 9.5 8.0 - 10.8 mg/dL CHEMISTRY ANALYSIS 12/31/2022 10:48 AM CDT [facility] Total Protein 7.3 6.2 - 8.3 g/dL CHEMISTRY ANALYSIS 12/31/2022 10:48 AM CDT [facility] Albumin 4.10 3.50 - 5.20 g/dL CHEMISTRY ANALYSIS 12/31/2022 10:48 AM CDT [facility] Alkaline Phosphatase 75 40 - 121 U/L CHEMISTRY ANALYSIS 12/31/2022 10:48 AM CDT [facility] ALT (Alanine Aminotransferas e) 63(H) 0 - 55 U/L CHEMISTRY ANALYSIS 12/31/2022 10:48 AM CDT [facility] AST (SGOT) 43(H) 5 - 40 U/L CHEMISTRY ANALYSIS 12/31/2022 10:48 AM CDT [facility] Bilirubin, Total 0.5 0.2 - 1.2 mg/dL CHEMISTRY ANALYSIS 12/31/2022 10:48 AM CDT [facility] BUN/Creatinine Ratio 18 10 - 20 Ratio CHEMISTRY ANALYSIS 12/31/2022 10:48 AM CDT [facility] GFR >60 mL/min/1. 73sqm CHEMISTRY ANALYSIS 12/31/2022 10:48 AM CDT [facility] Comment: An Estimated GFR result less than or equal to 60 mL/min/1.73 sqm is indicative of renal disease. Effective 04/24/2022 eGFR CKD-EPI is now calculated using the National Kidney Foundation recommended 2020 calculation which no longer includes a race dependency. Anion Gap 10 5 - 20 mmol/L CHEMISTRY ANALYSIS 12/31/2022 10:48 AM CDT [facility] Albumin/Globuli n Ratio 1.3 1.0 - 2.2 Ratio CHEMISTRY ANALYSIS 12/31/2022 10:48 AM CDT [facility] Patient fasting? Fasting CHEMISTRY ANALYSIS 12/31/2022 10:48 AM T [facility] Blood VENOUS BLOOD SPECIMEN / Unknown Venipuncture / Unknown 12/31/2022 7:19 AM CDT 12/31/2022 7:19 AM CDT Izzy WILL LAB BLOOD ORDERABLES [facility] [address] [place] [address], [facility] [phone] from Last 3 Months or Most Recently Relevant to Health Maintenance Care Teams Urgent Care Nurse Practitioner Relationship Specialty Start Date End Date Izzy Quinonez APNP PCP - General Nurse Practitioner 01/28/20
--- OUTSIDE RECORDS SUMMARY | 2024-07-15 09:29 | XMS_ITS | Encounter Summary ---
Author Organization [facility] Address [address] [place] [address] Care Team Providers Care Instrument Repair Specialist Name Role Phone Izzy Quinonez Primary Care Provider [phone] Encounter Details Date Type Department Care Team ([facility] Contact Info) Description 01/10/2024 8:40 AM CDT Lab Visit [facility] at [address] [phone] Type 2 diabetes mellitus without complication, without long-term current use of insulin (HCC) (Primary Dx) Social History Tobacco Use Types Packs/Day Years [...] Orientation Straight 02/20/2024 9: 06 AM CDT documented as of this encounter Plan of Treatment Upcoming Encounters Date Type Department Care Team ([facility] Contact Info) Description 08/05/2024 1:20 PM 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 Telemedicine [facility] at [address] [phone] Izzy Quinonez APNP [address] [place] [phone] 01/08/2025 7:15 AM CDT Appointment [facility] [address] [facility], [address] [place] [address] Izzy Quinonez APNP [address] [place] [phone] 01/08/2025 8:20 AM CDT Lab Visit [facility] at [address] [phone] 01/12/2025 8:00 AM CDT Office Visit [facility] at [address] [phone] Izzy Quinonez APNP [address] [place] [phone] documented as of this encounter Visit Diagnoses Diagnosis Type 2 diabetes mellitus without complication, without long-term current use of insulin (HCC)- Primary documented in this encounter Care Teams Instrument Repair Specialist Relationship Specialty Start Date End Date Izzy Quinonez APNP PCP - General Nurse Practitioner 01/28/20 documented as of this encounter
--- OUTSIDE RECORDS SUMMARY | 2024-07-15 09:29 | XMS_ITS | Clinical Summary ---
Author Organization [facility] Address [address] [place] [address] Care Team Providers Care Product Examiner Name Role Phone QuinonezIzzy Primary Care Provider + [phone] Allergies Active Allergy Reactions Criticality Noted Date [...] Intradermal 06/04/2013 Influenza Vaccine, Unspecified Formulation 06/04 [employer] ([employer]) COVID-19 Recombinant Vaccine (PF) 0.5 mL 12/29/2020 MMR 01/13/2019 Moderna COVID-19 Vaccine (12+ Yrs) 100 mcg/0.5mL 01/23/2022 Td(Adult), 2Lf, Pres Free, Adsorbed, Generic Tdap (Adacel, Boostrix) 01/06/2019 Zoster Vaccine Recombinant, Adjuvanted IM (Shing stephenie) 01/12/2020 Zoster Vaccine, Live SQ (Zostavax) 09/30/2014 Family History Medical History Relation Name Comments No Known Problems Daughter 1 No Known Problems Daughter 2 Stroke Father Swallowing difficulties Father Breast cancer Maternal Aunt Breast cancer Maternal Grandmother Breast cancer Mother Hemangiomas Mother On her spine. U nable to operate. Stroke Mother Lives in [facility] facility. Relation Name Status Comments Daughter 1 Alive Daughter 2 Alive Father Alive Maternal Aunt Alive Maternal Grandmother Mother Alive Social History Tobacco Use Types Packs/Day Years [...] st Contact Info) Description 08/05/2024 1:20 PM SMALL ANIMAL CARETAKER Telemedicine [facility] Medicine at [address] [phone] Izzy Quinonez APNP [address] [place] [id number] 01/08/2025 7:15 AM CDT Appointment [facility], [address] [place] [address] Izzy Quinonez APNP [address] [place] [address] 01/08/2025 8:20 AM CDT Lab Visit [facility] Laboratory at [address] [address] 01/12/2025 8:00 AM CDT Office Visit [facility] Medicine at [address] [phone] Izzy Quinonez APNP [address] [place] [address] Health Maintenance Due Date Last Done Comments CT Colonography 1959 FIT/iiFOBT 1960 Sigmoidoscopy 1960 Pneumococcal Vaccine: Peds (0-5 Yrs) and At-Risk (6-64 Yrs) (1 of 2 - PCV) 1965 BMI COUNSELING 1977 HEP C SCREENING 1977 HIV SCREENING 1977 SCREEN FOR BRCA RISK 1977 Colonoscopy 01/13/2017 01/13/2007 ZOSTER (SHINGLES) VACCINE (3 of 3) 03/08/2020 01/12/2020, 09/30/2014 DIABETES EDUCATION 01/01/2023 DIABETIC EYE EXAM 05/03/2023 05/03/2022 ASTHMA ANNUAL SPIROMETRY 08/15/2023 DIABETES MICROALBUMIN 01/01/2024 12/31/2022 , 12/29/2021, 01/05/2021 COVID-19 Vaccine ( season) 2024 01/23/2022, 12/29/2020 INFLUENZA VACCINE (#1) 2024 06/04/2013, 2012 DIABETES HBA1C 07/12/2024 01/10/2024, 05/0 03/2023, 12/29/2021, Additional history exists Diabetic Electrolyte/Renal Monitoring 01/09/2025 01/10/2024, 12/31/2022, 12/29/2021, Additional history exists LIPID DIAGNOSTIC TESTING 01/09/2025 , 12/31/2022, 12/29/2021, Additional history exists Annual Alcohol Screening 02/19/2025 024, 08/15/2023, 01/01/2023 DIABETIC FOOT EXAM 02/19/2025 01/01/2023 (P erformed today ) Postponed from 01/02/2024 (Declines today, but may reconsider) PREVENTIVE HEALTH EVAL (PRIMARY CARE) 02/19/2025 02/20/2024, 01/10/2024, 01/01/2023, Additional history exists MAMMOGRAM 01/09/2026 01/10/2024, 12/24, 12/31/2022, Additional history exists Cologuard 01/22/2026 01/22/2023 Colorectal Cancer Screening 01/22/2026 DTap/Tdap/Td (2 - Td or Tdap) 01/06/2029 01/06/2019, 08/15/2000 RSV Vaccine Patients 60 Years and Older (1 - 1-dose 75+ series) 2034 Blood Glucose Screening for Patients Age 40-70 that are Overweight or Obese Discontinued 12/31/2022, 12/31/2022, 12/29/2021, Additional history exists HEPATITIS A VACCINE Aged Out No longe r eligible based on patient's age to complete this topic HEPATITIS B VACCINE Discontinued HIB VACCINES Aged Out No longer eligi ble based on patient's age to complete this topic HPV VACCINE Aged Out No longer eligi ble based on patient's age to complete this topic MENINGOCOCCAL VACCINE Aged Out No alessandra kristi eligible based on patient's age to complete this topic RSV Immunization Pediatric Patients under 20 months Aged Out No longer eligi ble based on patient's age to complete this topic Procedures Procedure Name Priority Date/Time Associated Diagnosis Comments MAMMO SCREEN BILATERAL WITH DAVID Routine 01/10/2024 7:30 AM CDT Breast cancer screening by mammogram COLOGUARD Routine 01/22/2023 5:13 PM CDT Colon cancer screening MICROALBUMIN, URINE, RANDOM Routine 12/31/2022 7:19 AM CDT Type 2 diabetes mellitus with other specified complication, unspecified whether intermission coordinator insulin use (HCC) LIPID PANEL Routine 12/31/2022 7:19 AM CDT Hyperlipidemia, unspecified hyperlipidemia type METABOLIC PANEL, COMPREHENSIVE (CMP) Routine 12/31/2022 7:19 AM CDT Hyperlipidemia, unspecified hyperlipidemia type HEMOGLOBIN A1C Routine 12/31/2022 7:19 AM CDT Type 2 diabetes mellitus with other specified complication, unspecified whether intermission coordinator insulin use (HCC) from Last 3 Months [...] used for the interpretation of this study. eNal Ellis MD [facility] 1960 Procedure Note Neal Ellis MD - [...] Neal Ellis MD [facility] 1960 Izzy Quinonez [facility] MAMMOGRAPHY ORDE DESIREE * Cologuard (01/22/2023 5:13 PM CDT) Cologuard Negative Negative [facility] Comment: NEGATIVE TEST RESULT. A negative [...] (Enrike Dunaway al, N Engl J Med 2014;370(14):8244-8875) The normal value (reference range) for this [...] Cancer Society Guideline for Colorectal Cancer Screening: https://www.cancer.org/cancer/riraq-phxdyn-rrxgzw/trcnsvqip-rumbpefif-szahzvs/ac s-rec ommendations.html.; Jadon DK, Donya CR, Chanda VarelaK, Colorectal Cancer Screening: Recommendations for Physicians and Patients from the U.S. Multi-Society Task Force on Colorectal Cancer Screening , Am J Gastroenterology 2017; 112:5006-2071. TEST DESCRIPTION: Composite algorithmic analysis of stool [...] (Enrike Dunaway al, N Engl J Med 2014;370(14):7421-6880.) Cologuard may produce a false negative or [...] can be accessed at the following location: www.[employer]/results. Additional description of the Cologuard test process, warnings and precautions can be found at www.cologuard.com. Stool STOOL SPECIMEN / Unknown 01/22/2023 5:13 PM CDT 01/22/2023 5:23 PM CDT Izzy WILL BODY FLUIDS AND STOO LS ORDERABLES [employer] [address] [place] [address] * Microalbumin, Urine, Random (12/31/2022 7:19 AM CDT) Microalbumin, Ur <5.0 0.0 - 20.0 ug/mL CHEMISTRY ANALYSIS 12/31/2022 11:15 AM CDT [facility] Creatinine Urine 108.20 mg/dL CHEMISTRY ANALYSIS 12/31/2022 11:15 AM CDT [facility] Microalbumin/C reat Ratio, Ur CHEMISTRY ANALYSIS 12/31/2022 11:15 AM CDT [facility] Comment:One or both of the m easured analytes is outside of detectable levels, therefore the ratio cannot be calculated. Urine URINE SPECIMEN OBTAINED BY CLEAN CATCH PROCEDURE / Unknown Collection / Unknown 12/31/2022 7:19 AM CDT 12/31/2022 7:19 AM CDT Izzy WILL URINE ORDERABLES Performing Organization Address City/[facility]/ZIP Co de Phone Number [facility] [address] [place], [place] [address] [phone] * Hemoglobin A1c (12/31/2022 7:19 AM CDT) Hemoglobin A1C 6.8 % CHEMISTRY ANALYSIS 12/31/2022 10:40 AM CDT [facility] Comment: Hemoglobin A1C (%) Recommendations*: For Diagnosing Diabetes: 5.7 - 6.4% Increased risk for developing diabetes > 6.4% Diagnostic of diabetes Therapeutic goals for glycemic control: < 7.0% Diabetic glycemic control > 8.0% Action recommended *[place] Diabetes Association (ADA) Guidelines - 2010 Est. Average Glucose 148 mg/dL CHEMISTRY ANALYSIS 12/31/2022 10:40 AM CDT [facility][NOTE 3] Comment:The results of a rec ent study published in Diabetes Care,Volume 31,Number 02 April 2008 supports the notion of a close relationship between A1C values and estimated average blood glucose (eAvg Glu)levels in type 1 and type 2 diabetes. Blood VENOUS BLOOD SPECIMEN / Unknown Venipuncture / Unknown 12/31/2022 7:19 AM CDT 12/31/2022 7:19 AM CDT Izzy WILL LAB BLOOD ORDERABLES [facility][NOTE 3] [address] [phone] * (ABNORMAL) Lipid Panel (12/31/2022 7:19 AM CDT) [facility] Signature Cholesterol 187 0 - 199 mg/dL CHEMISTRY ANALYSIS 12/31/2022 10:48 AM CDT [facility][NOTE 3] Triglycerides 161(H) 0 - 149 mg/dL CHEMISTRY ANALYSIS 12/31/2022 10:48 AM CDT [facility][NOTE 3] HDL 38(L) 41 - 999 mg/dL CHEMISTRY ANALYSIS 12/31/2022 10:48 AM CDT [facility][NOTE 3] LDL Cholesterol 117 0 - 129 mg/dL CHEMISTRY ANALYSIS 12/31/2022 10:48 AM CDT [facility][NOTE 3] Chol/HDL Ratio 4.9 0 - 6 CHEMISTRY ANALYSIS 12/31/2022 10:48 AM CDT [facility][NOTE 3] Wac-NQG-Cgne 149(H) 0 - 129 mg/dL CHEMISTRY ANALYSIS 12/31/2022 10:48 AM CDT [facility][NOTE 3] Comment: NCEP GUIDELINES - (2001) Test Desirable Borderline Higher Risk Triglyceride <150 150 - 199 200 - 499 Cholesterol <200 200 - 239 >239 HDL-Chol >60 <40 LDL-Chol(Calc) <100* 130 - 160 >160 *100-129 is considered low risk Chol/HDL Ratio A ratio of >6.0 has been associated with a greater risk of Coronary Heart Disease (Arch. Charter Coordinator. Med. 161; (2001): 4288-1624) Non-HDL Chol When the Triglyceride level is greater than 199 mg/dL, Non-HDL Cholesterol is a better indicator of coronary heart disease risk than a calculated LDL Cholesterol Patient fasting? Fasting CHEMISTRY ANALYSIS 12/31/2022 10:48 AM CDT [facility][NOTE 3] Blood VENOUS BLOOD SPECIMEN / Unknown Venipuncture / Unknown 12/31/2022 7:19 AM CDT 12/31/2022 7:19 AM CDT Izzy WILL LAB BLOOD ORDERABLES [facility][NOTE 3] [address] [phone] * (ABNORMAL) Metabolic Panel, Comprehensive (CMP) (12/31/2022 7:19 AM CDT) Sodium 136 136 - 145 mmol/L CHEMISTRY ANALYSIS 12/31/2022 10:48 AM CDT [facility] D[facility] Potassium 4.4 3.5 - 5.1 mmol/L CHEMISTRY ANALYSIS 12/31/2022 10:48 AM CDT [facility] Chloride 102 100 - 110 mmol/L CHEMISTRY ANALYSIS 12/31/2022 10:48 AM CDT [facility] Total CO2 28 22 - 29 mmol/L CHEMISTRY ANALYSIS 12/31/2022 10:48 AM CDT [facility][NOTE 3] Glucose 155(H) 74 - 99 mg/dL CHEMISTRY ANALYSIS 12/31/2022 10:48 AM CDT [facility] BUN 17 7 - 26 mg/dL CHEMISTRY ANALYSIS 12/31/2022 10:48 AM CDT [facility][NOTE 3] Creatinine 0.94 0.55 - 1.11 mg/dL CHEMISTRY ANALYSIS 12/31/2022 10:48 AM T [facility][NOTE 3] Calcium 9.5 8.0 - 10.8 mg/dL CHEMISTRY ANALYSIS 12/31/2022 10:48 AM T [facility][NOTE 3] Total Protein 7.3 6.2 - 8.3 g/dL CHEMISTRY ANALYSIS 12/31/2022 10:48 AM CDT [facility][NOTE 3] Albumin 4.10 3.50 - 5.20 g/dL CHEMISTRY ANALYSIS 12/31/2022 10:48 AM [facility] Alkaline Phosphatase 75 40 - 121 U/L CHEMISTRY ANALYSIS 12/31/2022 10:48 AM [facility] ALT (Alanine Aminotransferas e) 63(H) 0 - 55 U/L CHEMISTRY ANALYSIS 12/31/2022 10:48 AM T [facility][NOTE 3] AST (SGOT) 43(H) 5 - 40 U/L CHEMISTRY ANALYSIS 12/31/2022 10:48 AM T [facility][NOTE 3] Bilirubin, Total 0.5 0.2 - 1.2 mg/dL CHEMISTRY ANALYSIS 12/31/2022 10:48 AM T [facility][NOTE 3] BUN/Creatinine Ratio 18 10 - 20 Ratio CHEMISTRY ANALYSIS 12/31/2022 10:48 AM CDT [facility][NOTE 3] GFR >60 mL/min/1. 73sqm CHEMISTRY ANALYSIS 12/31/2022 10:48 AM T [facility][NOTE 3] Comment: An Estimated GFR result less than or equal to 60 mL/min/1.73 sqm is indicative of renal disease. Effective 04/24/2022 eGFR CKD-EPI is now calculated using the National Kidney Foundation recommended 2020 calculation which no longer includes a race dependency. Anion Gap 10 5 - 20 mmol/L CHEMISTRY ANALYSIS 12/31/2022 10:48 AM CDT [facility][NOTE 3] Albumin/Globuli n Ratio 1.3 1.0 - 2.2 Ratio CHEMISTRY ANALYSIS 12/31/2022 10:48 AM CDT [facility][NOTE 3] Patient fasting? Fasting CHEMISTRY ANALYSIS 12/31/2022 10:48 AM CDT [facility][NOTE 3] Blood VENOUS BLOOD SPECIMEN / Unknown Venipuncture / Unknown 12/31/2022 7:19 AM CDT 12/31/2022 7:19 AM CDT Izzy WILL LAB BLOOD ORDERABLES [facility][NOTE 3] [address], [place] [address] [phone] from Last 3 Months or Most Recently Relevant to Health Maintenance Care Teams Product Examiner Relationship Specialty Start Date End Date Izzy Quinonez APNP PCP - General Nurse Practitioner 01/28/20
--- OUTSIDE RECORDS SUMMARY | 2024-07-15 09:30 | XMS_ITS | Clinical Summary ---
Author Organization [facility] and [facility] Address [address] [place] [address] Care Team Providers Care Physical Security Manager Name Role Phone Stephy Alexis Unavailable Unavailab Izzy Mckeon Primary Care Provider + [phone] Allergies Active Allergy Reactions Criticality Noted Date Comments No Known Drug Allergy 07/16/2001 Medications * This document contains information received from the source organization and may not represent a complete record from that organization. MULTIVITAMIN/I JUSTIN OR TABS 1 chewable tablet 2 times weekly 0 0 7 Active Unclassified (OTHER) Artificial Tears OU prn . Active docusate sodium (COLACE) 100 mg oral capsule Take 1 capsule (100 mg total) by mouth as needed 3 Active Lactobacillus- Inulin (CULTURELLE) oral CAPS 3 Active montelukast (SINGULAIR) 5 mg oral tablet (chewable) Take 1 tablet (5 mg total) by mouth every night at bedtime 30 tablet 11 3 Active meloxicam (MOBIC) 7.5 mg oral tabletIndicati ons:Swollen joint 1-2 tablets daily for arthritis 60 tablet 5 4 Active Additional Information Patient not taking.Reason: Patient Choice, Reported on 01/30/2022 omeprazole EC (PRILOSEC OTC) 20 mg oral EC tablet (delayed release) Take 1 tablet by mouth every day Active Glucosamine-Ch ondroitin 500-400 MG oral tablet Active estradiol (ESTRACE VAGINAL) 0.1 mg/g vaginal vaginal cream Apply / insert intravaginally or topically to external vulvar area - small quantity 2x/week for maintenance. 42.5 g 11 4 Active Additional Information Patient not taking.Reason: Directed by Physician, Reported on 01/30/2022 rizatriptan (MAXALT) 10 mg oral tablet 1 tablet at onset of migraine. Repeat in 2 hours. Max 30 mg per 24 hours. 9 tablet 3 5 Active fluticasone (FLONASE) 50 mcg/act nose nasal spray Instill 2 sprays into each nostril every day. Active aspirin 325 mg oral tablet Take 325 mg by mouth every day. Active metFORMIN (GLUCOPHAGE) 500 mg oral tablet Take 500 mg by mouth. Active escitalopram (LEXAPRO) 5 mg oral tablet Take 5 mg by mouth every day. Active biotin 1 mg oral CAPS capsule Take 1 mg by mouth every day. Active bromfenac (PROLENSA) 0.07 % eye SOLNIndication s:Nuclear senile cataract of both eyes One drop nightly at bedtime in operative eye starting 1 day prior to surgery and 4 weeks post operatively. 3 mL 1 2 Active ofloxacin (OCUFLOX) 0.3 % eye eye dropsIndicatio ns:Nuclear senile cataract of both eyes One drop three times daily in operative eye starting 1 day prior to surgery and 7 days post operatively. 5 mL 1 2 Active prednisoLONE acetate (PRED FORTE) 1 % eye eye dropsIndicatio ns:Nuclear senile cataract of both eyes One drop three times daily in operative eye starting 1 day prior to surgery and 4 weeks post operatively.. 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/28/2012 Family Hx Breast Ca - mother, MGM 07/05/20081992 Hysterectomy, ovaries retained 07/05/2008 Common Migraine without Mention of Intractable M igraine 10/25/2005 Overview (01/07/2007): Danna evans follows in the past;;stable, use Relpax 1/2 of a 20mg tab Esophageal reflux 12/21/2002 Overview (05/31/2008): Ranitidine chronically (prior protonix cause dgas) Family History of Diabetes Mellitus 12/21/2002 Unspecified Hearing Loss: left 01/20/2002 Overview (03/31/2014): On left Allergic Rhinitis, Cause Unspecified Overview (06/13/2004): dust, molds Resolved Problems Problem Noted Date [...] Deficit Disorder with Hyperactivity 08/26/18 95 03/31/2014 Overview (09/22/2002): Started methylphenidate Depressive Disorder, not Elsewhere Classified 08/26/18 95 03/31/2014 Overview (09/22/2002): Chronic since highschool Immunizations Name Administration Dates [...] = 0.6 oz pur e alcohol) rare Comments No Sex and Gender Information Value Date Recorded Sex Assigned at Not on file Legal Sex Female 9:11 AM [employer] Gender Identity Not on file Sexual Orientation Not on file 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 Not on file Not on file Last Filed Vital Signs Vital Sign Reading Time Taken Comments Blood Pressure 100/64 08/25/2014 2:27 PM [employer] Pulse 58 08/25/2014 2:27 PM [employer] Temperature 36.5 C (97.7 F) 08/25/2014 2:27 PM [employer] Respiratory Rate 16 11/17/2012 12:20 PM CDT Oxygen Saturation 95% 05/13/2013 8:50 AM CDT Inhaled Oxygen Concentration - - Weight 69.1 kg (152 lb 6.4 oz) 08/25/2014 2:27 P M [employer] Height 161.3 cm (5' 3.5) 08/25/2014 2:27 PM [employer] Body Mass Index 26.57 08/25/2014 2:27 PM [employer] Plan of Treatment Health Maintenance Due Date Last Done Comments CT Colonography Every 5 Years 2004 Cologuard Every 3 Years 2004 FIT/FOBT Every 1 Year 2004 Sigmoidoscopy Every 5 Years 2004 Lipids 12/28/2014 12/28/2013, 09/26, 10/19/2011, Additional history exists Breast Cancer Screening (Mammo) 06/25/2015 06/25/2014, 06/03/2013, 05/29/2012, Additional history exists Colonoscopy 01/13/2017 01/13/2007, 01/13/2007 Colorectal Cancer Screening 01/13/2017 Shingles (3 of 3) 03/08/2020 01/12/2020, 09/30/2014 Flu 6M+ (#1) 03/26/2024 06/04/2013 COVID-19 Vaccine ( season) 2024 01/23/2022, 12/29/2020 DTaP/Tdap/Td/Tetanus (2 - Td or Tdap) 01/06/2029 01/06/2019, 08/15/2000 RSV Adult 60+ and patients (1 - 1-dose 75+ series) 2034 Hep C Screening Completed 08/25/2014 Hep B Aged Out No longer eligi ble based on patient's age to complete this topic Pneumococcal 0-64 Aged Out No longer eligible based on patient's age to complete this topic Procedures Procedure Name Priority Date/Time Associated Diagnosis Comments HEPATITIS C ANTIBODY W/ REFLEX TO NAAT Routine 08/25/2014 2:52 PM [employer] Exposure to hepatitis C MAMMO SCREEN BILAT Routine 06/25/2014 7: 09 AM CDT Other screening mammogram LIPID PANEL Routine 12/28/2013 6:47 AM CDT Hyperlipemia DONOTUSE COLONOSCOPY Routine 01/13/2007 12:00 AM CDT from Last 3 Months or Most Recently Relevant to Health Maintenance Results * HEPATITIS C ANTIBODY (08/25/2014 2:52 PM [employer]) HEP C ANTIBODY Negative Negative 08/25/2014 9:15 PM [employer] [facility] Blood Venipuncture / Unknown 08/25/2014 2:52 PM [employer] 08/25/2014 2:53 PM [employer] us Kayleen WILL LAB BLOOD ORDERABLES Allyn l Result [facility] [employer] [id number] [id number] * Mammo Screen Bilat (06/25/2014 7:09 AM CDT) Anatomical Region Laterality Modality Chest, Breast Bilateral Mammography 06/25/2014 6:45 AM CDT Impressions 06/25/2014 9:04 AM CDT IMPRESSION: BI-RADS 2: Benign findings. Recommend screening mammograms in one year. Computer-aided detection (CAD) was employed in the analysis of these images. Direct digital imaging was utilized for this study. The patient will be notified of these results. Shadia Gipson MD Division of [facility] Transcribed by: [email or web address] Civil Engineer Land Development date and time: 06/25/2014 08:47:51 Narrative 06/25/2014 9:04 AM CDT BILATERAL DIGITAL SCREENING MAMMOGRAMS HISTORY: Routine screening. Family history of breast cancer. Benign left breast MRI guided biopsy in 2006. COMPARISON: 06/03/2013, 05/29/2012, 05/07/2011, 04/19/2010, 07/14/2009 and 07/13/2008. VIEWS: Routine bilateral CC and MLO views. FINDINGS: The breast tissue is heterogeneously dense, which could obscure detection of small masses. Biopsy marker clip is again seen in the left breast from prior benign left breast biopsy. No suspicious masses or calcifications. There is no significant interval change or evidence of malignancy. Procedure Note Shadia Gipson MD - 06/25/2014 BILATERAL DIGITAL SCREENING MAMMOGRAMS HISTORY: Routine screening. Family history of breast cancer. Benign left breast MRI guided biopsy in 2006. COMPARISON: 06/03/2013, 05/29/2012, 05/07/2011, 04/19/2010, 07/14/2009nd 07/13/2008. VIEWS: Routine bilateral CC and MLO views. FINDINGS: The breast tissue is heterogeneously dense, which couldobscure detection of small masses. Biopsy marker clip is again seen in the left breast from prior benign left breast biopsy. No suspicious masses or calcifications. There is no significant interval change or evidence of malignancy. IMPRESSION: BI-RADS 2: Benign findings. Recommend screening mammograms in one year. Computer-aided detection (CAD) was employed in the analysis of these images. Direct digital imaging was utilized for this study. The patient will be notified of these results. Shadia Gipson MD Division of [facility] Transcribed by: [email or web address] Civil Engineer Land Development date and time: 06/25/2014 08:47:51 us Kayleen WILL MAMMOGRAPHY Final Res ult * (ABNORMAL) LIPID PANEL (12/28/2013 6:47 AM CDT) CHOLESTEROL 202(H) <200 mg/dL 12/28/2013 7:08 AM CDT [facility] TRIGLYCERIDE 131 <150 mg/dL 12/28/2013 7:08 AM T ZORAIDA SUSAN [facility] HDL CHOLESTEROL 45 >39 mg/dL 4 7:08 AM T [facility] LDL 131(H) <100 mg/dL 12/28/2013 7:08 AM CDT ZORAIDA SUSAN [facility] VLDL 26 0 - 100 mg/dL 12/28/2013 7:08 AM T [facility]IDA [facility] CHOL/HDL RATIO 4.5(H) <4.5 12/28/2013 7:08 AM T [facility]ORAIDA [facility] NON HDL CHOLESTEROL 157(H) <130 mg/dL 12/28/2013 7:08 AM T [facility] Fasting? Yes 12/28/2013 7:08 AM T ZORAIDA [facility] Blood specimen (specimen) Venipuncture / Unknown 12/28/2013 6:47 AM CDT 12/28/2013 6:59 AM CDT Narrative [facility] - 12/28/2013 7:08 AM CDT If no CAD or no diabetes and fewer than 2 risk factors Goal: LDL <= 160, CHOL <= 240, Non HDL Chol < 190 If no CAD or no diabetes and 2 or more risk factors Goal: LDL <= 130, CHOL <= 200, Non HDL Chol < 160 If CAD or diabetes present Goal: LDL <= 100, Chol <= 170, Non HDL Chol <130 Kayleen WILL LAB BLOOD ORDERABLES Allyn l Result BENNY DAVIS [facility] [id number] [facility] [place] [address] from Last 3 Months or Most Recently Relevant to Health Maintenance Insurance * Guarantor: Karley Olguin Account Type Relation to Patient Date of Phone Billing Address Personal/Family Self 1960 [id number] [place] [address] * Guarantor: Karley Olguinzabeth Account Type Relation to Patient Date of Phone Billing Address Personal/Family Self 1960 [id number] [place] [address] * Guarantor: Karley Olguinbeth Account Type Relation to Patient Date of Phone Billing Address Personal/Family Self 1960 [id number] [place] [address] * Guarantor: Karley Olguinbeth Account Type Relation to Patient Date of Phone Billing Address Personal/Family Self 1960 [id number] [place] [address] * Guarantor: Karley Olguinbeth Account Type Relation to Patient Date of Phone Billing Address Personal/Family Self 1960 [id number] [place] [address] [employer] [id number] [place] [id number] [place] [id number] WORK COMP Member Subscriber Plan / Payer (Ef fective 2005-Present) Name:Karley Olguin Relation to Subscriber:Employee Name:[id number] CLARK Subscriber ID:xx [id number] PAIN (Work) Address: [address] [place] [address] Payer ID:Not on file Group ID:Not on file Type:Workers Comp Address: [address] [place] [address] WORK COMP Advance Directives For more information, please contact: [phone] * Full Code (Latest Code Status on File) Date Activated Date Inactivated Comments 11/17/2012 8:36 AM 11/17/2012 12:38 PM * No Code Status Date Activated Date Inactivated Comments 11/19/2003 11:49 AM 11/19/2003 11:49 AM Care Teams Physical Security Manager Relationship Specialty Start Date End Date Stephy Alexis APNP PCP - Obstetrics/Gynecology 06/14/08 Izzy Quinonez APNP PCP - General Family Medicine 02/17/15
--- OUTSIDE RECORDS SUMMARY | 2024-07-15 09:30 | XMS_ITS | Clinical Summary ---
Author Organization [facility] Address [place], [place] [address] Care Team Providers Care A And P Mechanic Name Role Phone Unknown, Doctor Primary Care Provider Unavailabl e Allergies No known active allergies Medications Medication Sig Dispensed Refills Start Date End Date Status metFORMIN (GLUCOPHAGE XR) 500 mg Extended-Release tablet Take 1 Tablet by mouth once daily. 09/30/2022 Active Coenzyme Q10 (Co Q-10) 200 mg capsule Co Q-10 Acti ve pravastatin (PRAVACHOL) 20 mg tablet Take 1 Tablet by mouth at bedtime. 09/30/2022 Active montelukast (SINGULAIR) 10 mg tablet Take 1 Tablet by mouth once daily in the evening. 09/30/2022 Active biotin 1 mg cap Take 1 mg by mouth. Active aspirin (ECOTRIN) 81 mg enteric coated tablet once daily. Active escitalopram oxalate (LEXAPRO) 5 mg tablet Take 5 mg by mouth every morning. 01/01/2023 Active estradioL (ESTRACE) 0.01% (0.1 mg/g) vaginal cream Insert 2 g into the vagina. 01/03/2023 Active albuterol HFA (PRO-AIR; VENTOLIN; PROVENTIL) 90 mcg/actuation inhaler INHALE 1 TO 2 PUFFS BY MOUTH EVERY 4 TO 6 HOURS NEEDED 02/27/2023 Active gabapentin (NEURONTIN) 100 mg capsule TK 1 C PO QID 01/01/2023 Active naratriptan (AMERGE) 2.5 mg tablet Take 2.5 mg by mouth one time if needed. 01/08/2023 Active latanoprost (XALATAN) 0.005 % ophthalmic solution Place 1 Drop into both eyes at bedtime. 08/10/2022 Active omeprazole (PRILOSEC-OTC) 20 mg tablet Take 20 mg by mouth. Active valACYclovir (VALTREX) 1 gram tablet Take 1 g by mouth. 10/17/2022 Active Qtjiq-1-OFM-EPA-Fish Oil (Fish OiL) 1,000 mg (120 mg-180 mg) cap Take by mouth. Active nitroglycerin (NITROSTAT) 0.4 mg sublingual tabletIndications:Urszula st pain, unspecified type Place 1 Tablet (0.4 mg) under the tongue every 5 minutes if needed for Chest Pain. Up to 3 tablets in 15 minutes. 25 Tablet 11/01/2023 Active Active Problems Problem Noted Date Diagnosed Date Mini stroke 10/30/2022 Overview (10/30/2022): Jun 2015: Left side of face symptoms Type 2 diabetes mellitus wit hout complication, with long-term current use of insulin 10/30/2022 Immunizations Name Administration Dates Next Due COVID-19 vaccine (Cristine-J&J) DAY DISLA COVID-19 vaccine (Moderna 100mcg/0.5mL) PF MDV 01/23/2022 Influenza Virus, Unspecified 06/04/2013 MMR 01/13/2019 Td (Age >=7 Years) 08/15/2000 Tdap, Unspecified 01/06/2019 Zoster (Shingrix-RZV, recombinant) 01/12/2020 Zoster (Zostavax-ZVL, live) 09/30/2014 Social History Tobacco Use Types Packs/Day Years Used Date Smoking Tobacco: Never Smokeless Tobacco: Never Tobacco Cessation:Counseling Given: Yes Alcohol Use Standard Drinks/Week Comments Not Currently 0 (1 standard drink = 0.6 oz pur e alcohol) 3 drinks per year PHQ-2 Answer Date Recorded PHQ-2 TOTAL SCORE 0 09/27/2023 Social Connections Answer Date Recorded Do you often feel lonely or isolated from those around you? 0 09/27/2023 Financial Resource Strain Answer Date R ecorded Difficulty of Paying Living Expenses 3 09/27/2023 Difficulty of Paying Living Expenses Not on file 09/27/2023 Food Insecurity Answer Date Recorded Do you worry your food will run out before you are able to buy more? 1 09/27/2023 Transportation Needs Answer Date Record ed Does lack of transportation keep you from medica l appointments? 1 09/27/2023 Does lack of transportation keep you from work, meetings or getting things that you need? 1 09/27/2023 Housing Stability Answer Date Recorded What is your housing situation today? 1 09/27/2023 Sex and Gender Information Value Date Recorded Sex Assigned at Not on file Gender Identity Not on file Sexual Orientation Not on file Obstetrics History Last Filed Vital Signs Vital Sign Reading Time Taken Comments Blood Pressure 129/82 11/01/2023 3:00 PM [employer] Pulse 58 11/01/2023 3:00 PM [employer] Temperature - - Respiratory Rate 14 05/07/2023 1:52 PM CDT Oxygen Saturation 95% 11/01/2023 3:00 PM [employer] Inhaled Oxygen Concentration - - Weight 83 kg (183 lb) 11/01/2023 3:00 PM [employer] SUPER[employer] Height 161.3 cm (5' 3.5) 11/01/2023 3:00 PM [employer] SUPER[employer] Body Mass Index 31.91 11/01/2023 3:00 PM [employer] 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 Plan of Treatment Health Maintenance Due Date Last Done Comments Pneumococcal series for age 6-64 (1 of 2 - PCV) 1965 HIV for age 15-65 1974 Hepatitis C screening for age 18-79 1977 Pap test for age 21-65 1980 Colonoscopy through age 75 2004 Lipids for age 45-75 2004 Mammogram for age 45-75 2004 Zoster (shingles) series for age 50+ (3 of 3) 03/08/2020 01/12/2020, 09/30/2014 COVID-19 vaccine series (2023- season) 2024 01/23/2022, 12/29/2020 Influenza for age 50-64 04/26/2024 06/04/2013 Depression screening for age 12+ 09/27/2024 09/27/19 24 BMI (ht and wt on same day) for age 18+ 10/31/2024 0 11/01/2023 Tetanus booster 01/06/2029 01/06/2019, 08/15/2000 Tdap Completed 01/06/2019 Care Teams A And P Mechanic Relationship Specialty Start Date End Date Unknown, Doctor . PCP - General 09/25/06
[2024-07-15 09:52] LABS: Hemoglobin A1C* 7.4 % (0-5.6)
[2024-07-15 09:56] LABS: Albumin* 4.4 g/dL (3.3-5.0); Chloride* 101 mmol/L (96-114)
[2024-07-15 09:57] LABS: Potassium* 4.4 mmol/L (3.6-5.1); Sodium* 136 mmol/L (135-149)
[2024-07-15 09:59] LABS: Alkaline Phosphatase* 82 U/L (40-150); Anion Gap 6 mEq/L (7-15); Aspartate Amino Transferase* 64 U/L (12-35); Bilirubin Total* 0.5 mg/dL (0.1-1.5); Blood Urea Nitrogen* 16 mg/dL (7-30); Carbon Dioxide* 29 mmol/L (20-32); Cholesterol* 203 mg/dL (90-199); Estimated Glomerular Filt Rate 63 ml/min; Total Protein* 7.7 g/dL (6.0-8.3)
[2024-07-15 10:00] LABS: Alanine Aminotransferase* 77 U/L (4-35); Calcium* 9.6 mg/dL (8.4-10.6); Glucose* 157 mg/dL (60-115); HDL Cholesterol* 44 mg/dL (>=50); LDL Cholesterol Calculated 123 mg/dL (<100); Triglycerides* 182 mg/dL (40-149)
[2024-07-15 10:02] LABS: Creatinine Urine 111.9 mg/dL
[2024-07-15 10:07] LABS: Microalbumin Creatinine Ratio 0 mg/g (0-30); Microalbumin Urine < 1 mg/dL
== END 2024-07-15 09:26 | disposition home or self-care (01) ==
LOC: LAB 09:27
PROVIDERS: Visit Provider Nurse Practitioner Family
DX: E78.2 Mixed hyperlipidemia (principal); E11.9 Type 2 diabetes mellitus without complications
CPT/HCPCS: 36415; 80053; 80061; 82043; 82570; 83036

== ENCOUNTER 2024-10-25 09:56 | Outpatient (CLI) | payer OTHER, SELFPAY ==
[2024-10-25 10:46] LABS: Albumin* 4.6 g/dL (3.3-5.0)
[2024-10-25 10:49] LABS: Alanine Aminotransferase* 60 U/L (4-35); Alkaline Phosphatase* 76 U/L (40-150); Aspartate Amino Transferase* 50 U/L (12-35); Bilirubin Direct* 0.2 mg/dL (0.0-0.5); Bilirubin Total* 0.6 mg/dL (0.1-1.5); Total Protein* 7.8 g/dL (6.0-8.3)
== END 2024-10-25 09:57 | disposition home or self-care (01) ==
PROVIDERS: Visit Provider Nurse Practitioner Family
DX: R79.89 Other specified abnormal findings of blood chemistry (principal)
CPT/HCPCS: 36415; 80076

== ENCOUNTER 2025-03-13 14:15 | Outpatient (CLI) | payer OTHER, SELFPAY ==
[2025-03-13 15:08] LABS: Albumin* 4.7 g/dL (3.3-5.0)
[2025-03-13 15:11] LABS: Alanine Aminotransferase* 65 U/L (4-35); Alkaline Phosphatase* 74 U/L (40-150); Aspartate Amino Transferase* 64 U/L (12-35); Bilirubin Direct* 0.1 mg/dL (0.0-0.5); Bilirubin Total* 0.6 mg/dL (0.1-1.5); Total Protein* 8.0 g/dL (6.0-8.3)
== END 2025-03-13 14:16 | disposition home or self-care (01) ==
PROVIDERS: Visit Provider Physician Assistant
DX: E11.65 Type 2 diabetes mellitus with hyperglycemia (principal); K76.0 Fatty (change of) liver, not elsewhere classified
CPT/HCPCS: 36415; 80076; 83036